=== PATIENT | male | born 1960 | race Caucasian/White ===

== ENCOUNTER 2019-12-25 10:52 | Outpatient (CLI) | payer OTHER, SELFPAY ==
--- NOTE | ~2019-12-25 | XR_ITS ---
XR_CERV2-3V_CR DATE: 12/25/2019 11:10 INDICATION: Neck pain radiating to the left shoulder. No injury. TECHNIQUE: AP, open-mouth, lateral views COMPARISON: None FINDINGS: There is straightening of the cervical spine. This may be an indication of muscle spasm. C1 and C2 are normally aligned and the odontoid process is intact. No fracture or dislocation or lock ed facet. No prevertebral soft tissue swelling. There is minimal anterolisthesis at C4-5. There is mild degenerative disease at C4-5 and C5-6. There is severe degenerative disease at C6-7. There is prominent uncovertebral joint spurring at C6-7 bilaterally. IMPRESSION: Degenerative changes, particularly at C6-7 with severe degenerative disc disease and unco vertebral joint spurring at this level Reviewed, dictated and finalized at Location A. Reviewed, dictated and finalized at location A. IMPRESSION: Degenerative changes, particularly at C6-7 with severe degenerative disc disease and uncovertebral joint spurring at this level
== END 2019-12-25 10:53 | disposition home or self-care (01) ==
PROVIDERS: PCP Internal Medicine; Visit Provider Nurse Practitioner
DX: M54.2 Cervicalgia (principal); M50.323 Other cervical disc degeneration at C6-C7 level
CPT/HCPCS: 72040

== ENCOUNTER 2022-02-16 14:38 | Outpatient (CLI) | payer OTHER, SELFPAY ==
[2022-02-16 18:38] LABS: Alanine Aminotransferase 47 U/L (6-50); Albumin Level 4.2 g/dL (3.5-5.1); Alkaline Phosphatase 192 U/L (38-126); Anion Gap 9 mmol/L (8-16); Aspartate Amino Transferase 74 U/L (17-59); Bilirubin,Total 0.6 mg/dL (0.2-1.3); Blood Urea Nitrogen 12 mg/dL (9-20); Calcium 9.4 mg/dL (8.4-10.2); Carbon Dioxide 29 mmol/L (22-30); Chloride 101 mmol/L (98-107); Cholesterol 168 mg/dL (0-200); Estimated Glomerular Filt Rate > 60; Glucose 100 mg/dL (65-110); HDL Direct 54 mg/dL; Potassium 4.8 mmol/L (3.4-5.0); Sodium 139 mmol/L (137-145); Triglycerides 131 mg/dL (<150)
[2022-02-16 18:44] LABS: Basophils Absolute Auto 0.1 K/mm3 (0.0-0.1); Basophils Percent Auto 0.8 % (0.2-1.2); Eosinophils Absolute Auto 0.2 K/mm3 (0-0.3); Eosinophils Percent Auto 2.2 % (0-4.4); Hematocrit 46.4 % (42.0-52.0); Hemoglobin 15.7 g/dL (14.0-18.0); Immature Granulocyte Absolute 0.04 K/mm3 (0.00-0.031); Immature Granulocyte Percent A 0.4 % (0-0.5); Lymphocytes Absolute Auto 4.11 K/mm3 (0.9-3.2); Lymphocytes Percent Auto 37.3 % (18.3-44.2); Mean Corpuscular HGB Conc 33.8 g/dl (32-36); Mean Corpuscular Hemoglobin 33.5 pg (26-34); Mean Corpuscular Volume 99.1 fl (80-100); Mean Platelet Volume 11.2 fl (7.4-10.4); Monocytes Absolute Auto 0.9 K/mm3 (0.1-0.6); Monocytes Percent Auto 7.7 % (2.6-8.5); Neutrophils Absolute Auto 5.7 K/mm3 (1.3-6.7); Neutrophils Percent Auto 51.6 % (45.5-73.1); Platelet Count Result 178 k/mm3 (150-375); Red Blood Count 4.68 M/mm3 (4.6-6.20)
[2022-02-16 18:49] LABS: LDL Cholesterol Direct 82 mg/dL
[2022-02-16 19:08] LABS: Prostate Specific Antigen 0.8 ng/mL (< OR = 4.0)
== END 2022-02-16 14:39 | disposition home or self-care (01) ==
LOC: ANHGOSHLAB 14:39
PROVIDERS: PCP Internal Medicine; Visit Provider Nurse Practitioner
DX: Z12.5 Encounter for screening for malignant neoplasm of prostate (principal); I10 Essential (primary) hypertension; E78.5 Hyperlipidemia, unspecified
CPT/HCPCS: 36415; 80053; 80061; 84153; 85025; G0103

== ENCOUNTER → 2023-05-08 13:19 | Outpatient (CLI) | payer OTHER, SELFPAY ==
--- NOTE | ~2023-05-08 | MR_ITS ---
EXAMINATION: MR lumbar spine wo con DATE: 05/08/2023 13:53 INDICATION: Chronic low back pain. TECHNIQUE: Magnetic resonance imaging (MRI) of the lumbar spine was performed without intravenous con trast. Sequences included sagittal T2-weighted FSE, sagittal T2-weighted FS FSE, sagittal T1-weighted FSE, and axial T2-weighted FSE. COMPARISON: Lumbar spine MRI 08/13/2018 FINDINGS: There is 14 degrees levoscoliosis of lumbar spine. There is 5 mm retrolisthesis of L2 on L3 . There is 2 mm anterolisthesis of L4 on L5. Vertebral body heights are normal. There is severely dec reased disc height at L2-L3. The distal spinal cord signal intensity is normal. The conus medullaris is at T12-L1. The following disc levels are specifically discussed: L1-L2: The disc does not extend beyond the endplate margin. There is moderate left facet joint osteoa rthritis. There is no neural foraminal stenosis. There is no central canal stenosis. L2-L3: The disc is bulging. There is severe right and moderate left facet joint osteoarthritis. There is moderate right and mild left neural foraminal stenosis. There is mild central canal stenosis. L3-L4: The disc is bulging. There is severe bilateral facet joint osteoarthritis. There is mild bilat eral neural foraminal stenosis. There is no central canal stenosis. L4-L5: The disc is bulging. There is severe bilateral facet joint osteoarthritis. There is mild bilat eral neural foraminal stenosis. There is mild central canal stenosis. L5-S1: There is a central protrusion. There is severe bilateral facet joint osteoarthritis. There is mild left neural foraminal stenosis. There is mild central canal stenosis. IMPRESSION: 1. Severe lumbar spondylosis, worsened from 08/13/2018. Reviewed, dictated and finalized at location E. GER TRANSPORTATION
== END ==
DX: M47.816 Spondylosis without myelopathy or radiculopathy, lumbar region (principal); M54.50 Low back pain, unspecified; G89.29 Other chronic pain
CPT/HCPCS: 72148

== ENCOUNTER 2024-08-22 11:37 | Outpatient (CLI) | payer MEDICARE, SELFPAY ==
--- NOTE | ~2024-08-22 | MR_ITS ---
EXAMINATION: MR lumbar spine wo con DATE: 08/22/2024 12:49 INDICATION: Lumbar radiculopathy. Low back pain. TECHNIQUE: Magnetic resonance imaging (MRI) of the lumbar spine was performed without intravenous con trast. Sequences included sagittal T2-weighted FSE, sagittal T2-weighted FS FSE, sagittal T1-weighted FSE, and axial T2-weighted FSE. COMPARISON: Lumbar spine MRI 05/08/2023 FINDINGS: There is 10 degrees levoscoliosis of lumbar spine. There is 4 mm retrolisthesis of L2 on L3 . Vertebral body heights are normal. There is severely decreased disc height at L2-L3 with endplate r emodeling. The distal spinal cord signal intensity is normal. The conus medullaris is at T12-L1. The following disc levels are specifically discussed: L1-L2: The disc does not extend beyond the endplate margin. There is mild bilateral facet joint osteo arthritis. There is no neural foraminal stenosis. There is no central canal stenosis. L2-L3: The disc is bulging. There is severe right and moderate left facet joint osteoarthritis. There is mild bilateral neural foraminal stenosis. There is mild central canal stenosis. L3-L4: The disc is bulging. There is moderate right and severe left facet joint osteoarthritis. There is mild bilateral neural foraminal stenosis. There is mild central canal stenosis. L4-L5: The disc is bulging. There is severe bilateral facet joint osteoarthritis. There is mild right and moderate left neural foraminal stenosis. There is mild central canal stenosis. L5-S1: The disc is bulging. There is severe bilateral facet joint osteoarthritis. There is mild bilat eral neural foraminal stenosis. There is mild central canal stenosis. IMPRESSION: 1. Severe lumbar spondylosis, stable from 05/08/2023. Reviewed, dictated and finalized at location A. RAM MEDICAL DIRECTOR
== END 2024-08-22 11:38 | disposition home or self-care (01) ==
PROVIDERS: PCP Internal Medicine
DX: M47.26 Other spondylosis with radiculopathy, lumbar region (principal)
CPT/HCPCS: 72148

== ENCOUNTER 2024-11-17 09:49 | Observation (INO) | payer MEDICARE, SELFPAY ==
[2024-11-17] VITALS (27 sets, daily range): BP systolic 99–122; BP diastolic 43–78; PULSE 60–74; RESP 12–31; TEMP 35.8–36.8; O2SAT 92–100; BMI 28.3
--- NOTE | ~2024-11-17 | CT_ITS ---
CTA chest PE abdomen pel Ordering provider: Collette Richards MD History: . sob, elev dimer; abd ascites . Comparison: None. Technique: CT angiogram chest was performed following timed intravenous injection of contrast. Thin s lice axial images and reformatted coronal images were obtained. Three dimensional reformatted images of the chest were also obtained using a [employer] workstation. Also, CT of the abdomen and pelvis was pe rformed with IV contrast. . Automated exposure control and iterative reconstruction technique were e mployed. The dose-length product was 1244.32 mGy-cm. 100 mL Omnipaque 350 was given IV. FINDINGS: CHEST: --PULMONARY ARTERIES: No pulmonary embolus. --VISUALIZED THORACIC INLET: Normal. --MEDIASTINUM: Aorta/coronary arteries: Mild atheromatous disease. Heart/other: The heart is not enlarged. Lymph nodes: No mediastinal or hilar adenopathy. Prevascular and paratracheal lymph node is seen jo ann uring 1.2 cm. --LUNGS: Dependent atelectatic changes with subsegmental atelectatic changes in the left side. No pulmonary no dules or masses. No infiltrates or effusions. No pneumothorax. Emphysematous changes in the upper lob es. --MUSCULOSKELETAL: Bones: Age appropriate degenerative changes of the spine. Superficial soft tissues: The superficial soft tissues are normal. ABDOMEN/PELVIS: --MUSCULOSKELETAL: Superficial soft tissues: Bilateral inguinal fat containing hernia. The superficial soft tissues are normal. Bones: Age appropriate degenerative changes of the spine. --UPPER ABDOMINAL ORGANS: Liver: Fat infiltration with liver cirrhosis. Gallbladder: Cholelithiasis. Sludge. Spleen: Benign calcifications. Hypodensities seen medially in the spleen which may be perfusional def ects. Stomach/duodenum: Normal. Pancreas: Normal. Adrenals: Normal. Kidneys: Normal. --PELVIC ORGANS: The bladder shows thickened wall. Evaluation for cystitis advised. No bladder stones . --BOWEL AND MESENTERY: Colon: Slightly thickened wall of the sigmoid colon. Colitis is possible. Clinical correlation and fo llow-up advised.. Normal appendix. Small Bowel: Normal. No obstruction. Peritoneum/mesentery: No free air. Massive ascites is noted. No mesenteric lymphadenopathy. Small mes enteric lymph nodes. --RETROPERITONEUM: Extensive atheromatous disease of the abdominal aorta with highly suggestive of o cclusion of the iliac arteries. Highly suggestive left graft is noted severe atherosclerotic changes of the celiac artery. Superior mesenteric atherosclerotic changes seen distally with moderate narrowi ng. No retroperitoneal lymphadenopathy. IMPRESSION: CHEST: 1. No pulmonary embolism. 2. Mediastinal lymphadenopathy. ABDOMEN/PELVIS: 1. Fat infiltration of liver cirrhosis. 2. Cholelithiasis. 3. Ascites 4. Thickened wall of the sigmoid colon. Colitis is possible. Clinical correlation and follow-up advi sed. 5. Bilateral fat containing inguinal hernias. 6. Atherosclerotic changes of the celiac and superior mesenteric arteries with mild to moderate narr owing. 7. Graft is seen in the area of the left iliac artery. Reviewed, dictated and finalized at location A. IMPRESSION: CHEST: 1. No pulmonary embolism. 2. Mediastinal lymphadenopathy. ABDOMEN/PELVIS: 1. Fat infiltration of liver cirrhosis. 2. Cholelithiasis. 3. Ascites 4. Thickened wall of the sigmoid colon. Colitis is possible. Clinical correlat ion and follow-up advised. 5. Bilateral fat containing inguinal hernias. 6. Atherosclerotic changes of the celiac and superior mesenteric arteries with mild to moderate narrowing. 7. Graft is seen in the area of the left iliac artery.
--- NOTE | ~2024-11-17 | US_ITS ---
EXAMINATION: US paracentesis abd w/image DATE: 11/17/2024 15:46 INDICATION: Ascites. TECHNIQUE: The procedure and its risks and benefits were discussed with the patient. Potential risks discussed included bleeding and infection. The skin was prepped and draped in sterile fashion. 1% lid ocaine was used for local anesthesia. Under ultrasound guidance, a 5 Fr catheter with trochar was adv anced into the ascites in the right lower quadrant. Fluid was aspirated into vacuum bottles. The cath eter was removed, and a dressing was applied. There were no immediate complications. FINDINGS: Ultrasound images demonstrate ascites and the catheter within the fluid. IMPRESSION: 1. Successful ultrasound-guided paracentesis yielding 2300 mL of clear yellow fluid. Reviewed, dictated and finalized at location A.
--- NOTE | ~2024-11-17 | US_ITS ---
EXAMINATION: US venous doppler [facility] DATE: 11/18/2024 17:37 INDICATION: Positive d-dimer with lower extremity swelling. 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 TECHNIQUE: Grayscale ultrasound images without and with compression and Doppler ultrasound images of the bilateral lower extremity veins were obtained. COMPARISON: None. FINDINGS: The visualized portions of right common femoral vein, profunda (deep) femoral vein, femoral vein and greater saphenous vein outflow are patent. The visualized portions of left common femoral vein, profunda femoral vein, femoral vein, popliteal v ein, peroneal veins, posterior tibial veins, and greater saphenous vein outflow are patent. IMPRESSION: 1. No deep venous thrombosis. Reviewed, dictated and finalized at location A.
--- OUTSIDE RECORDS SUMMARY | 2024-11-17 10:00 | XMS_ITS | Encounter Summary ---
Author Organization [facility] Healthcare Address [address] [place] [address] Care Team Providers Care Shuttle Driver Name Role Phone Zacarias Gutierrez DO Primary Care Provider [phone] Renny Page MD PhD Unavailable [phone] Encounter Details Date Type Department Care Team (Late st Contact Info) Description 05/27/2023 Telephone [facility] [address] [place] [address] Yi Porter MD [address] [facility] [address] [place], [place] [id number] Social History Tobacco Use Types Packs/Day Years Used Date Smoking Tobacco: Every Day Cigarettes 1 45 Started: 1973; Last attempted to quit: 2018 Smokeless Tobacco: Never Comments:Smoking History Pac ks/day: 20 Packs Alcohol Use Standard Drinks/Week Comments Yes 12 (1 standard drink = 0.6 oz pu re alcohol) AUDIT-C Answer Date Recorded Q1: How often do you have a drink containing alcohol? 4 or more times a week 05/27/2023 Q2: How many drinks containi ng alcohol do you have on a typical day when you are drinking? 3 or 4 3 Frequency of Binge Drinking Not on file 05/02 Hunger Vital Sign Answer Date Recorded Within the past 12 months, y ou worried that your food would run out before you got the money to buy more. Never true 09/13/19 23 Within the past 12 months, t he food you bought just didn't last and you didn't have money to get more. Never true 09/12/2022 Sex and Gender Information Value Date Recorded Sex Assigned at Not on file Legal Sex Male 2:20 AM PODIATRY ASSISTANT Gender Identity Male 07/11/2021 8:22 AM PODIATRY ASSISTANT Sexual Orientation Straight 07/11/2021 8: 22 AM PODIATRY ASSISTANT documented as of this encounter Functional Status documented as of this encounter Plan of Treatment Not on file documented as of this encounter Goals Goal Patient Goal Type Associated Problems Recent Progress Patient-Stated? Author CCM Chronic Pain Care Plan Chronic Care Management No change(09/30 12:01 PM CDT) No Rea Huitron RN Note: Problem: Chronic Pain Goals: 1. Minimize further functional decline 2. Maximize quality of life 3. Control pain Strategies: - Activity/exercise program recommendation - Conservative stepwise pain medicine strategy with multi-disciplinary approach - Recommend healthy lifestyle strategies and compensatory methods as needed documented as of this encounter Visit Diagnoses Not on filedocumented in this encounter Care Teams Shuttle Driver Relationship Specialty Start Date End Date Zacarias Gutierrez DO PCP - General 12/05/11 Renny Page MD PhD Surgeon Vascular Surgery 12/18/18 documented as of this encounter
--- OUTSIDE RECORDS SUMMARY | 2024-11-17 10:00 | XMS_ITS | Continuity of Care Document ---
Author Organization [facility] Address [address] [place] [address] Phone Care Team Providers Care Exceptional Children Teacher Name Role Phone Dutta OD, Shade Unavailable Unavailable Advance Directives Directive Yes / No Effective Date File Name No Information Encounters Encounter Description Practice Location Reason(s) For Visit Diagnoses Date Provider Providers Copied on Encounter [facility], [address], [place], [place], [id number], [place] tel:[phone] [facility] No Information 2-200 6 Dutta OD Sh[place]. [address] , [address], [place], [address], [place]. tel:[phone] Family History Family Member Type Diagnosis Age At Onset No Information Payers Payer name Insurance type Covered constitution party ID Authoriza tion(s) [employer] SOI CI [id number] Social History Type Description Quantity Date Captured Comments Sex Male Smoking Status No Information Chief Complaint And Reason For Visit No Information Reason For Referral Reason For Referral No Information History Of Present Illness Encounter Date Complaint History Of Prese nt Illness No Information Functional Status Date Functional Assessmen t No Information Instructions Date Instruction Additional Infor mation No Information Assessments Type Assessment Date No Information Patient Care Teams Name Effective Dates (start - stop) Status Members No Information
--- OUTSIDE RECORDS SUMMARY | 2024-11-17 10:00 | XMS_ITS | CONTINUITY OF CARE DOCUMENT ---
Author Name angela miller Address Unknown Organization [facility] Address [id number] [place] [address] [address] [place] [address] Phone [phone] Care Team Providers Care Psychologist Military Personnel Name Role Phone angela miller Unavailable Unavailable INSURANCE PROVIDERS Payer name Policy type / Coverage type [place] red green party ID [facility] [id number]
--- OUTSIDE RECORDS SUMMARY | 2024-11-17 10:01 | XMS_ITS | Clinical Summary ---
Author Organization [facility] Address [address] [place] [address] Care Team Providers Care Guard Lieutenant Name Role Phone Zacarias Gutierrez DO Primary Care Provider [phone] Source Comments [facility],non-owned Affiliates and Associated Physician Practices is amultiple site organization consisting of ambulatory clinics and hospital sitesin [place], [place], [place] and [place]. This disclosure is being madepursuant to the Care Everywhere program and may not contain all information available regarding this patient. Last updated 18.[facility] Allergies No known active allergies Medications * Be aware that medications may not be up to date on this document. Alwaysverify current medications with the patient. pantoprazole EC (PROTONIX) 40 MG tablet 4 03/06/2017 Active Multiple Vitamin (DAILY VITES) TABS Take 1 tablet by mouth DAILY. 30 tablet 5 03/14/2017 Active tadalafil (CIALIS) 20 MG tablet Take 20 mg by mouth. 01/30/2017 Active aspirin (ASPIRIN) 325 MG tablet Take 325 mg by mouth DAILY. 01/30/2017 Active Thiamine HCl 100 MG Take 1 tablet by mouth once daily 30 tablet 11 10/16/2017 Active folic acid (FOLVITE) 1 MG tablet Take 1 tablet by mouth once daily 30 tablet 3 10/16/2017 Active amLODIPine (NORVASC) 10 MG tablet 1 12/05/2017 Active atorvastatin (LIPITOR) 20 MG tablet 0 01/10/2018 Active BYSTOLIC 20 MG tablet 0 01/10/2018 Active Active Problems Problem Noted Date Diagnosed Date Alcohol use with alcohol-induced disorder 2016 Alcoholic hepatitis without ascites 01/31/2017 Family History Medical History Relation Name Comments Other - Hepatic/Liver Neg Hx Social History Tobacco Use Types Packs/Day Years Used Date Smoking Tobacco: Every Day Cigarettes Smokeless Tobacco: Never Alcohol Use Standard Drinks/Week Comments Yes 0 (1 standard drink = 0.6 oz pure alcohol) once per week. 2 drinks per occassion. Sex and Gender Information Value Date Recorded Sex Assigned at Not on file Legal Sex Male 5:27 PM CHIP CRUSHER OPERATOR Gender Identity Not on file Sexual Orientation Not on file Last Filed Vital Signs Vital Sign Reading Time Taken Comments Blood Pressure 152/83 07/08/2017 1:33 PM CHIP CRUSHER OPERATOR Pulse 103 07/08/2017 1:33 PM CHIP CRUSHER OPERATOR Temperature 36.8 C (98.2 F) 02/26/2017 12:04 PM CDT Respiratory Rate 18 02/26/2017 8:30 PM CDT Oxygen Saturation 100% 07/08/2017 1:33 PM CHIP CRUSHER OPERATOR Inhaled Oxygen Concentration - - Weight 76 kg (167 lb 9.6 oz) 07/08/2017 1:33 PM CHIP CRUSHER OPERATOR Height 165.1 cm (5' 5) 07/08/2017 1:33 PM CHIP CRUSHER OPERATOR Body Mass Index 27.89 07/08/2017 1:33 PM CHIP CRUSHER OPERATOR Plan of Treatment Health Maintenance Due Date Last Done Comments COLOGUARD (AGES 45-75) - COLON CA SCREENING 1958 COLON MONITORING 1958 COLONOSCOPY - COLON CA SCREENING 1958 CT COLONOGRAPHY - COLON CA SCREENING 1960 Colorectal Cancer Screening 1958 FIT - COLON CA SCREENING 1958 FLEX SIG - COLON CA SCREENING 1958 DTAP/TDAP/TD VACCINES (1 - Tdap) 1977 PNEUMOCOCCAL VACCINE 50+ (1 of 1 - PCV) 2008 ZOSTER VACCINE (1 of 2) 2008 SCREENING FOR DIABETES 02/13/2021 8, 03/14/2017, 02/26/2017, Additional history exists AAA SCREENING 2023 COVID-19 VACCINE (1 - 2023- season) 2024 DEPRESSION SCREENING 07/01/2024 INFLUENZA VACCINE (Season Ended) 2025 Respiratory Syncytial Virus (RSV) Vaccine Pt: or over 60 yrs (1 - 1-dose 75+ series) 2033 HEPATITIS C SCREENING Completed 01/27/2017 HEPATITIS B VACCINE Aged Out No longe r eligible based on patient's age to complete this topic HIB VACCINE Aged Out No longer eligi ble based on patient's age to complete this topic HPV VACCINE Aged Out No longer eligi ble based on patient's age to complete this topic MENINGOCOCCAL (Group B) VACCINE SHARED DECISION-MAKING Aged Out No longer eligible based on patient's age to complete this topic MENINGOCOCCAL GROUPS A/C/Y/W VACCINE Aged Out No longer eligible based on patient's age to complete this topic Procedures Procedure Name Priority Date/Time Associated Diagnosis Comments COMPREHENSIVE METABOLIC PANEL Routine 02/13/2018 2:44 PM CDT Alcoholic liver disease HEPATITIS C ANTIBODY Routine 01/27/2017 8:29 AM CDT from Last 3 Months or Most Recently Relevant to Health Maintenance Results * COMPREHENSIVE METABOLIC PANEL (02/13/2018 2:44 PM CDT) BUN 12 7 - 26 mg/dL 02/13/2018 3:30 PM [facility] Creatinine 0.9 0.6 - 1.2 mg/dL 02/13/2018 3:30 PM [facility] Sodium 139 136 - 145 mmol/L 02/13/2018 3:30 PM [facility] Potassium 4.1 3.5 - 4.5 mmol/L 02/13/2018 3:30 PM [facility] Chloride 104 98 - 107 mmol/L 02/13/2018 3:30 PM [facility] CO2 28 22 - 29 mmol/L 02/13/2018 3:30 PM [facility] Glucose 99 70 - 115 mg/dL 02/13/2018 3:30 PM [facility] Calcium 9.7 8.4 - 10.2 mg/dL 02/13/2018 3:30 PM [facility] Protein Total 7.1 6.0 - 8.3 g/dL 02/13/2018 3:30 PM [facility] Albumin 3.7 3.4 - 5.0 g/dL 02/13/2018 3:30 PM [facility] Bilirubin Total 0.3 0.2 - 1.2 mg/dL 02/13/2018 3:30 PM [facility] Alkaline Phosphatase 136 40 - 150 Units/L 02/13/2018 3:30 PM [facility] ALT 20 0 - 55 Units/L 02/13/2018 3:30 PM [facility] AST 22 5 - 34 Units/L 02/13/2018 3:30 PM [facility] Anion Gap 11 8 - 18 02/13/2018 3:30 PM [facility] BUN/Creatinine Ratio 13 7 - 23 02/13/2018 3:30 PM [facility] Osmolality Calculated 288 270 - 300 mOsm/kg 02/13/2018 3:30 PM [facility] Albumin/Globulin Ratio 1.1 1.1 - 2.3 02/13/2018 3:30 PM [facility] eGFR >60 >60 mL/min/1.7 3 m2 02/13/2018 3:30 PM [facility] Blood BLOOD SPECIMEN / Unknown Lab Venipuncture / Unknown 02/13/2018 2:44 PM CDT 02/13/2018 3:05 PM CDT us Justino Bateman MD LAB - CHEMISTRY ORDERABLES Ruchi l Result [address] [phone] * HEPATITIS C ANTIBODY (01/27/2017 8:29 AM CDT) Hepatitis C Antibody Non-react [facility] Comment: Hepatitis C Antibody screen indicates no serologic evidence of past or current infection with Hepatitis C Virus. Patients with unexplained liver disease who are immunocompromised or suspected of having acute Hepatitis C infection may benefit from Nucleic Acid Test (CIERRA) for Hepatitis C Viral RNA to confirm Hepatitis C status. Blood specimen (specimen) BLOOD SPECIMEN / Unknown 01/27/2017 8:29 AM CDT 01/27/2017 8:52 AM CDT us Vicky Smith MD LAB - CHEMISTRY ORDERA BLES Final Result [facility] [address] [place] [address], [facility] [phone] from Last 3 Months or Most Recently Relevant to Health Maintenance Insurance [employer] Care Teams Guard Lieutenant Relationship Specialty Start Date End Date Zacarias Gutierrez DO PCP - General 02/19/17
--- OUTSIDE RECORDS SUMMARY | 2024-11-17 10:01 | XMS_ITS | Clinical Summary ---
Author Organization [facility] Address [address] [address] Care Team Providers Care Assistant Director Of Residence Life Name Role Phone Zacarias Gutierrez DO Primary Care Provider [phone] Renny Page MD PhD Unavailable [phone] Allergies Active Allergy Reactions Criticality Noted Date Comments No Known Allergies Other (See comments) Low Reaction: Medications amLODIPine (NORVASC) 10 mg tabletIndicatio ns:hypertension Take 1 tablet (10 mg total) by mouth every morning 9 Active atorvastatin (LIPITOR) 20 mg tabletIndicatio ns:hyperlipidem ia Take 1 tablet (20 mg total) by mouth every morning 9 Active multivitamin tabletIndicatio ns:Vitamin Deficiency Prevention Take 1 tablet by mouth every morning 7 Active BYSTOLIC 20 mg tabletIndicatio ns:hypertension Take 1 tablet (20 mg total) by mouth every morning 9 Active CIALIS 20 mg tabletIndicatio ns:Erectile Dysfunction Take 1 tablet (20 mg total) by mouth daily as needed 9 Active omega-3 fatty acids-fish oil 300-1,000 mg capsuleIndicati ons:supplement Take 2 capsules (2 g total) by mouth every morning Active aspirin 325 mg tablet Take 1 tablet (325 mg total) by mouth daily Active albuterol HFA (PROVENTIL HFA,VENTOLIN HFA,PROAIR HFA) 90 mcg/actuation inhaler INHALE 1 PUFF BY MOUTH EVERY 4 HOURS NEEDED FOR SHORTNESS OF BREATH OR WHEEZING [address] (NexIUM) 20 mg capsule Take by mouth daily 2 Active baclofen (LIORESAL) 5 mg tablet Take 1 tablet (5 mg total) by mouth 3 (three) times a day 90 tablet 1 5 11/26/19 25 Active lidocaine (LIDODERM) 5 % Place 1 patch on the skin daily for 12 hours Remove & discard patch within 12 hours or as directed by . 30 patch 3 5 Active lidocaine (LIDODERM) 5 % Place 1 patch on the skin daily Remove & discard patch within 12 hours or as directed by . 30 patch 3 5 10/23/19 25 Discontinu ed(Reorder ) Active Problems Problem Noted Date Diagnosed Date Spondylosis of lumbar region without myelopathy or radiculopathy 01/15/2022 Peripheral neuropathy 01/15/2022 Phantom limb syndrome with pain 01/02/2022 Chronic low back pain 01/02/2022 Carotid stenosis, right 10/15/2018 Impaired functional mobility, balance, gait, and endurance Status post above-knee amputation of right lower extremity Encounters Date Type Department Care Team Description 11/03/2024 2:48 PM CDT - 11/03/2024 11:59 PM CDT Hospital Encounter [facility] [address] [place] [address] Discharge Disposition: Discharge to home or self care 10/23/2024 Telephone [facility] [place] [facility] [address] [place] [address] [facility] [address] [place] [address] Yi Porter MD Lidocaine patch PA approved 07/01/24-06/30/25 10/22/2024 11:45 AM CDT - 10/22/2024 11:59 PM CDT Hospital Encounter [facility] [place] [facility] [address] [place] [address] [facility] [address] [place] [address] Yi Porter MD Chronic low back pain without sciatica, unspecified back pain laterality (Primary Dx); Spondylosis of lumbar region without myelopathy or radiculopathy Discharge Disposition: Discharge to home or self care from Last 3 Months Surgical History Surgery Date Site/Laterality Comments ABOVE KNEE LEG AMPUTATION AORTA - FEMORAL ARTERY BYPASS GRAFT 07/01/2009 - 010 CAROTID ENDARTERECTOMY Right APPENDECTOMY Medical History Medical History Date Comments Cardiovascular disease Coronary Artery Disease Hx Other Medical Carotid Disease Hx Other Medical Peripheral Vasc ular Disease (s/p L aorto-fem bypas Hypertension Hypertension Male erectile disorder (CODE) Er ectile dysfunction of non-organic origin - (Added by TW Conv) Personal history of other di seases of the circulatory system History of hypertension - (A dded by TW Conv) Personal history of other di seases of the digestive system History of esophageal reflux - (Added by TW Conv) Personal history of other di seases of the circulatory system History of peripheral vascul ar disease - (Added by TW Conv) GERD (gastroesophageal reflux disease) Depression History of transfusion Family History Medical History Relation Name Comments Anxiety disorder Mother Depression Mother Heart disease Mother Hypertension Mother Stent Mother Coronary Stent Placement; Relation Name Status Comments Mother Alive Social History Tobacco Use Types Packs/Day Years Used Date Smoking Tobacco: Every Day Cigarettes 1 45 Started: 1973; Last attempted to quit: 2018 Smokeless Tobacco: Never Tobacco Cessation:Ready to Q uit: No; Counseling Given: Yes Comments:Smoking History Packs/day: 20 Packs Alcohol Use Standard Drinks/Week Comments Yes 12 (1 standard drink = 0.6 oz pu re alcohol) AUDIT-C Answer Date Recorded Q1: How often do you have a drink containing alcohol? 4 or more times a week 10/22/2024 Q2: How many drinks containi ng alcohol do you have on a typical day when you are drinking? 3 or 4 Q3: How often do you have si x or more drinks on one occasion? Never 10/22/2024 Hunger Vital Sign Answer Date Recorded Within [...] on file Legal Sex Male 2:20 AM CONSULTING PROJECT DIRECTOR Gender Identity Male 07/11/2021 8:22 AM CONSULTING PROJECT DIRECTOR Sexual Orientation Straight 07/11/2021 8: 22 AM CONSULTING PROJECT DIRECTOR Obstetrics History Last Filed Vital Signs Vital Sign Reading Time Taken Comments Blood Pressure 115/70 10/22/2024 11:55 AM CDT Pulse 77 10/22/2024 11:55 AM CDT Temperature 36.4 C (97.5 F) 10/22/2024 11:55 AM CDT Respiratory Rate 10 10/22/2024 11:55 AM CDT Oxygen Saturation 97% 10/22/2024 11:55 AM CDT Inhaled Oxygen Concentration - - Weight 72.3 kg (159 lb 8 oz) 10/22/2024 11:55 AM CDT Height 165.1 cm (5' 5) 10/22/2024 11:55 AM CDT Body Mass Index 26.54 10/22/2024 11:55 AM CDT Plan of Treatment Health Maintenance Due Date Last Done Comments Depression Screening 1958 Fall Risk Assessment 1960 Hepatitis C Screening 1958 Prostate Cancer Screening-PSA 1958 DTaP/Tdap/Td Vaccine (1 - Tdap) 1969 Hepatitis B Screening 1976 Pneumococcal vaccine 65+ (1 of 2 - PCV) 1977 Lung Cancer Screening 2008 Zoster Vaccine (1 of 2) 2008 Abdominal Aortic Aneurysm (AAA) Screen 2023 Well Visit 65+ 2023 Covid-19 Vaccine (2 - season) 03/01/202410/2020 Influenza Vaccine (Season Ended) 2025 04/16/20 19 Colon Cancer Screening-Colonoscopy 09/19/20272017 Colon Cancer Screening-CT Colonography Discontinued Colon Cancer Screening-DNA Stool Discontinued 09/19/19 Colon Cancer Screening-FIT Discontinued 09/18/2017 Colon Cancer Screening-Sigmoidoscopy Discontinued 08/30 Goals Goal Patient Goal Type Associated Problems [...] lifestyle strategies and compensatory methods as needed Medical Devices Implanted Type Area Coordinator Skill Training Program Device Identifier Shelf Expiration Date Model / Serial / Lot Neronote [id number] Vascu-Guard 8x.8cm Peripheral Patch Vascular Bovine Pericardium - [id number] - [id number] Implanted:Qty: 1 on 12/17/2018 by Renny Page MD PhD at [facility] Graft Right: Neck [employer] 07/23/2023 VG-[id number] / [id number] / [id number] [employer] System Sprint Percutaneous Electrical Nerve Stimulation [id number] - [id number] Implanted:Qty: 1 on 07/10/2022 by Yi Porter MD at [facility] Stimulator Bilatera l: Back [employer] 05/01/2023 [id number] / / [id number] 22 Procedures Procedure Name Priority Date/Time Associated Diagnosis Comments NEURO CT OUTSIDE REFERENCE Routine 11/03/2024 2:48 PM CDT Diagnosis unknown CTA ABDOMEN PELVIS W WO CONTRAST Schedule Routine, Read Routine (OP Routine) 10/15/2018 10:09 AM CDT Carotid stenosis, right COLONOSCOPY REPORT 09/18/2017 from Last 3 Months or Most Recently Relevant to Health Maintenance Results * Neuro CT Outside Reference (11/03/2024 2:48 PM CDT) Impressions [facility] - 11/03/2024 2:48 PM CDT These images are for Reference purposes only and have not been reviewed by [facility]. There will be no report generated by a [facility]iologist. Narrative RAD_PACS_[facility] - 11/03/2024 2:48 PM CDT EXAMINATION: Images For Reference Purposes Only us Yi Porter MD IMG CT PROCEDURES Final Result [facility] * CTA Abdomen Pelvis W WO Contrast (10/15/2018 10:09 AM CDT) Anatomical Region Laterality Modality Body N/A Computed Tomogra phy 10/15/2018 11:1 7 AM CDT Impressions 10/15/2018 11:17 AM CDT 1. No significant arterial stenosis or aneurysmal dilatation in the abdomen or pelvis. 2. Patent eknjy-cabl-tvtaytu bypass. 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 3. Morphologic liver changes suggesting underlying chronic liver disease. Electronically signed by: Justice Mays M.D. Narrative 10/15/2018 11:17 AM CDT EXAMINATION: CT ANGIOGRAPHY OF THE ABDOMEN AND PELVIS WITH AND WITHOUT CONTRAST HISTORY: Carotid artery stenosis, history of aortic thrombosis status post thrombectomy and endarterectomy with left aorta femoral bypass TECHNIQUE: CT angiography of the abdomen and pelvis was performed prior to and following uneventful intravenous administration of 125 ml Optiray-350 using the pre-endoluminal stent graft protocol. Vascular 3D images were generated on a dedicated workstation and also reviewed. COMPARISON: 06/09/2010 FINDINGS: Vascular findings: The abdominal aorta is nonaneurysmal and contains atherosclerotic calcification and plaque. No area of significant aortic stenosis. Postoperative change of aorta left femoral bypass. Bypass graft remains patent and without evidence of significant stenosis. The [place] left common iliac artery is occluded with reconstitution of the [place] left internal and external iliac via collateral flow. There is unchanged chronic occlusion of the right common iliac artery with reconstitution of the right common femoral artery by collaterals. There is diminutive/thready flow in the right superficial femoral artery and profunda. The left superficial femoral artery and deep femoral arteries appear widely patent along their visualized course. No evidence of significant stenosis involving the celiac trunk or SMA. No significant stenosis involving the renal arteries (2 right renal arteries). The OK is not visualized. Nonvascular findings: No change in right middle lobe with nancie-fissural intrapulmonary lymph node. Emphysematous change is noted. No new lung base finding. No arterial phase enhancing liver lesion. There is periportal widening and mild left liver hypertrophy, suggesting underlying chronic liver disease. A gallstone is noted. No gallbladder wall thickening. No biliary ductal dilatation. Arterial phase pancreas, spleen, and adrenal glands appear normal. No solid renal lesion. No urolithiasis or hydronephrosis. Mild circumferential urinary bladder wall thickening. The prostate is enlarged. Sigmoid diverticulosis without evidence of diverticulitis. No abnormal bowel distention or adjacent inflammation. No ascites or free pelvic fluid. Small bilateral inguinal fat-containing hernias. No enlarged retroperitoneal, mesenteric, or pelvic/inguinal lymph nodes. No suspicious bone lesion. Multilevel degenerative change of the lumbar spine. Postoperative change of right above-knee amputation, partially imaged. Procedure Note Justice Mays MD - 10/15/2018 EXAMINATION: CT ANGIOGRAPHY OF THE ABDOMEN AND PELVIS WITH AND WITHOUT CONTRAST HISTORY: Carotid artery stenosis, history of aortic thrombosis status post thrombectomy and endarterectomy with left aorta femoral bypass TECHNIQUE: CT angiography of the abdomen and pelvis was performed prior to and following uneventful intravenous administration of 125 ml Optiray-350 using the pre-endoluminal stent graft protocol. Vascular 3D images were generated on a dedicated workstation and also reviewed. COMPARISON: 06/09/2010 FINDINGS: Vascular findings: The abdominal aorta is nonaneurysmal and contains atherosclerotic calcification and plaque. No area of significant aortic stenosis. Postoperative change of aorta left femoral bypass. Bypass graft remains patent and without evidence of significant stenosis. The [place] left common iliac artery is occluded with reconstitution of the [place] left internal and external iliac via collateral flow. There is unchanged chronic occlusion of the right common iliac artery with reconstitution of the right common femoral artery by collaterals. There is diminutive/thready flow in the right superficial femoral artery and profunda. The left superficial femoral artery and deep femoral arteries appear widely patent along their visualized course. No evidence of significant stenosis involving the celiac trunk or SMA. No significant stenosis involving the renal arteries (2 right renal arteries). The OK is not visualized. Nonvascular findings: No change in right middle lobe with nancie-fissural intrapulmonary lymph node. Emphysematous change is noted. No new lung base finding. No arterial phase enhancing liver lesion. There is periportal widening and mild left liver hypertrophy, suggesting underlying chronic liver disease. A gallstone is noted. No gallbladder wall thickening. No biliary ductal dilatation. Arterial phase pancreas, spleen, and adrenal glands appear normal. No solid renal lesion. No urolithiasis or hydronephrosis. Mild circumferential urinary bladder wall thickening. The prostate is enlarged. Sigmoid diverticulosis without evidence of diverticulitis. No abnormal bowel distention or adjacent inflammation. No ascites or free pelvic fluid. Small bilateral inguinal fat-containing hernias. No enlarged retroperitoneal, mesenteric, or pelvic/inguinal lymph nodes. No suspicious bone lesion. Multilevel degenerative change of the lumbar spine. Postoperative change of right above-knee amputation, partially imaged. IMPRESSION: 1. No significant arterial stenosis or aneurysmal dilatation in the abdomen or pelvis. 2. Patent gmpoq-mrco-ixzjndy bypass. 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 3. Morphologic liver changes suggesting underlying chronic liver disease. Electronically signed by: Justice Mays M.D. Renny Page MD PhD IMG CT PROCEDURES Ruchi l Result * COLONOSCOPY REPORT (09/18/2017) Anatomical Region Laterality Modality Other Provider Scanning GI PROCEDURE ORDERABLES Final Result from Last 3 Months or Most Recently Relevant to Health Maintenance Insurance MEDICARE [facility] Address: [address] [place] [address] [facility] [id number] [facility] MEDICARE [facility] MEDICARE [facility] Address: [address] [address] [place] [address] [facility] MEDICARE Advance Directives For more information, please contact: [phone] Documents on File Type Date Recorded Patient Housing Inspectors Expl anation ADVANCE DIRECTIVE 12/22/2018 1:17 PM ED MCCONNELL * Full Code (Latest Code Status on File) Date Activated Date Inactivated Comments 12/17/2018 7:16 PM 12/18/2018 4:46 PM Care Teams Assistant Director Of Residence Life Relationship Specialty Start Date End Date Zacarias Gutierrez DO PCP - General 12/05/11 Renny Page MD PhD Surgeon Vascular Surgery 12/18/18
--- OUTSIDE RECORDS SUMMARY | 2024-11-17 10:01 | XMS_ITS | Referral Summary ---
Author Organization [facility] Address [address] [place] [address] Care Team Providers Care Senior Accounts Payable Specialist Name Role Phone Zacarias Gutierrez DO Primary Care Provider [phone]- [phone] Renny Page MD PhD Unavailable [phone] Encounters Date Type Department Care Team Description 11/03/2024 2:48 PM CDT - 11/03/2024 11:59 PM CDT Hospital Encounter [facility] [address] [place] [address] Discharge Disposition: Discharge to home or self care 10/23/2024 Telephone [facility] [place] [facility] [address] [place] [address] for [facility] [address] [place] [address] Yi Porter MD Lidocaine patch PA approved 07/01/24-06/30/25 10/22/2024 11:45 AM CDT - 10/22/2024 11:59 PM CDT Hospital Encounter [facility] [place] [facility] [address] [place] [address] for [facility] [address] [place] [address] Yi Porter MD Chronic low back pain without sciatica, unspecified back pain laterality (Primary Dx); Spondylosis of lumbar region without myelopathy or radiculopathy Discharge Disposition: Discharge to home or self care from Last 3 Months Allergies Active Allergy Reactions Criticality Noted Date [...] within 12 hours or as directed by 30 patch 3 5 Active lidocaine (LIDODERM) 5 % Place 1 patch on the skin daily Remove & discard patch within 12 hours or as directed by MD. Roth patch 3 5 10/23/19 25 Discontinu ed(Reorder ) Active Problems Problem Noted Date Diagnosed Date Spondylosis of lumbar region without myelopathy or radiculopathy 01/15/2022 Peripheral neuropathy 01/15/2022 Phantom limb syndrome with pain 01/02/2022 Chronic low back pain 01/02/2022 Carotid stenosis, right 10/15/2018 Impaired functional mobility, balance, gait, and endurance Status post above-knee amputation of right lower extremity Social History Tobacco Use Types Packs/Day Years [...] on file Legal Sex Male 2:20 AM ASW/ASUW TACTICAL AIR CONTROLLER Gender Identity Male 07/11/2021 8:22 AM ASW/ASUW TACTICAL AIR CONTROLLER Sexual Orientation Straight 07/11/2021 8: 22 AM ASW/ASUW TACTICAL AIR CONTROLLER Last Filed Vital Signs Vital Sign Reading [...] 10/22/2024 11:55 AM CDT Plan of Treatment Not on file Goals Goal Patient Goal Type Associated Problems [...] as needed Medical Devices Implanted Type Area Clinical Documentation Clerk Device Identifier Shelf Expiration Date Model / Serial / Lot [employer] Vg-[id number] Vascu-Guard 8x.8cm Peripheral Patch Vascular Bovine Pericardium - [id number] - [id number] Implanted:Qty: 1 on 12/17/2018 by Renny Page MD PhD at [facility] Graft Right: Neck [employer] 07/23/2023 VG-0108N / [id number] / [id number] [employer] System Sprint Percutaneous Electrical Nerve Stimulation 9913-9090 - [id number] Implanted:Qty: 1 on 07/10/2022 by Yi Porter MD at [facility] Stimulator Bilatera l: Back [employer] 05/01/2023 [id number] / / [id number] 22 Procedures Procedure Name Priority Date/Time Associated [...] Outside Reference (11/03/2024 2:48 PM CDT) Impressions [facility] - 11/03/2024 2:48 PM CDT These images are for Reference purposes only and have not been reviewed by [facility]. There will be no report generated by a [facility] Radiologist. Narrative [facility] - 11/03/2024 2:48 PM CDT EXAMINATION: Images [...] in the abdomen or pelvis. 2. Patent ismfv-vdtw-ggqalxv bypass. 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 The [place] left common iliac artery is occluded with reconstitution of the [place] left internal and external iliac via collateral [...] and without evidence of significant stenosis. The [place] left common iliac artery is occluded with reconstitution of the [place] left internal and external iliac via collateral [...] in the abdomen or pelvis. 2. Patent ogfhz-rfnx-zrahvbg bypass. 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 at the origin of the [place] internal/external iliac arteries on the left and [...] Recently Relevant to Health Maintenance Insurance [facility] [id number] [facility] MEDICARE [facility] MEDICARE T MEDICARE Advance Directives For more information, please contact: [phone] Documents on File Type Date Recorded Patient It Infrastructure Consultant Expl anation ADVANCE DIRECTIVE 12/22/2018 1:17 PM ED MCCONNELL * Full Code (Latest Code Status on File) Date Activated Date Inactivated Comments 12/17/2018 7:16 PM 12/18/2018 4:46 PM Care Teams Senior Accounts Payable Specialist Relationship Specialty Start Date End Date Zacarias Gutierrez DO PCP - General 12/05/11 Renny Page MD PhD Surgeon Vascular Surgery 12/18/18
--- NOTE | 2024-11-17 10:54 | ED.ABDPAIN ---
HPI - Abdominal Pain General Chief Complaint: Abdominal Pain Stated Complaint: abdominal bloating Time Seen by Provider: 11/17/24 10:45 Source: patient, family and other (Dr Gutierrez had called pre-arrival report to [facility]) Mode of arrival: ambulatory Limitations: no limitations History of Present Illness HPI narrative: Patient presents upon recommendation of his primary care physician that he do so. Patient complaining of abdominal distension and bloating. PCP had noted concern ascites and that patient is often noncompliant with following up on recommended outpatient labs/work up. He had been borderline hypotensive in the office. He denies kana abdominal pain only that the weight gain has caused the stretching that feels uncomfortable and also causes some shortness of breath. He denies any liver disease history. Patient notes that talking with the stress of his father's estate he did start drinking more heavily, having a bottle of wine and 2 shots of Southern comfort at night to help him fall asleep. When he started feeling like he was becoming symptomatic, he stopped drinking the wine. Patient does previous history of alcohol withdrawal. He states he has felt jittery before but that was after drinking and feeling like he might be dehydrated. He notes that he has been able to stop drinking for at times 6 months before resuming. He denies any fevers or chills. His last oral intake was this morning. He had a cereal breakfast this will waiting in the waiting room. His last bowel movement was this morning he denies any diarrhea constipation or blood. Denies any early satiety but decreased appetite for the past 3 months. Feels gassy. No nausea or vomiting. Denies any bowel changes. Estimates that he has a 10 lb weight gain primarily over the past 2 weeks. He has had decreased urine output. He also notes that it is been orange although had been attributed to the vitamin he takes. He denies any underlying respiratory conditions however he does smoke pack per day. He has had a cough that he states breaks up when he lays on his side. History of MRSA complication after AAA surgery. Also history of right ykbgb-qmp-vmyh amputation. Related Data Home Medications ?Medication ?Instructions ?Recorded ?Confirmed ?Last Taken ?Type aspirin 325 mg tablet 325 mg PO DAILY 10/07/19 11/17/24 11/17/24 History multivitamin 1 tablet PO DAILY 10/07/19 11/17/24 11/17/24 History omega-3 fatty acids 1,000 mg 1,000 mg PO DAILY 10/07/19 11/17/24 11/17/24 History capsule (Fish Oil Concentrate) Allergies Allergy/AdvReac Type Severity Reaction Status Date / Time No Known Allergies Allergy Verified 11/17/24 08:29 [facility] Past Medical History Medical History (Updated 11/18/24 @ 11:57 by Collette Richards MD) Above knee amputation of right lower extremity Left carotid artery stenosis Chronic pain PAD (peripheral artery disease) Leukocytosis HTN (hypertension) PVD (peripheral vascular disease) AAA (abdominal aortic aneurysm) Osteoarthritis MRSA (methicillin resistant Staphylococcus aureus) Degenerative arthritis of left knee Hypogonadism History of colon polyps GERD (gastroesophageal reflux disease) HLD (hyperlipidemia) Dystonia of right hand CTS (carpal tunnel syndrome) Bursitis Situational anxiety Surgical History Surgical History H/O colonoscopy with polypectomy 2018 S/P arthroscopic surgery of left knee 2013 History of carpal tunnel release right wrist H/O rorre-zpiyk-hwcuofo bypass 05/24/2010 Carotid artery disorder surgery 2019, Right Family History Family History Mother Family history of cardiovascular disease Heart disease Social History Social History (Updated 11/18/24 @ 11:59 by Collette Richards MD) Smoking packs per day: 1 Smoking cigarettes per day: 20.0 Smoking status: Current every day smoker Tobacco type: cigarettes Alcohol intake: current Substance use: current Substance use type: marijuana Other substance usage details: 2 shots of whisky Do You Feel Safe in your Home?: Yes Lack of Transportation: No Lack of Food: Never True Current Housing: I Have Housing Concerned About Future Housing: No Difficulty Paying Gas/Electric Bills: No Difficulty Paying for Meds: No Currently Unemployed: No Education: High School Diploma/GED Difficulty w/ Childcare or Family Care: No Living arrangements: with family Spiritual care concerns: No Exam Narrative: GENERAL: well-nourished, and in no acute distress. HEAD: Normocephalic, atraumatic. EYES: Non injected, mildly icteric ENT: Nares clear, no rhinorrhea or epistaxis. NECK: Supple. CHEST: Speaking in full sentences. No respiratory distress. Coarse rhonchorous bilateral breath sounds, slightly diminished. HEART: Regular rate and rhythm. . ABDOMEN: Soft, distended. Ascites with Fluid shift. No caput medusa. Well healed LLQ scar. EXTREMITIES: Normal range of motion. Right AKA. SKIN: Warm, dry, no rash. NEURO: No focal deficits. Alert and oriented x3. PSYCH: Normal mood and affect. Course Vital Signs Vital signs: Vital Signs Temperature 97.6 F 11/17/24 09:57 Pulse Rate 60 11/17/24 09:57 Respiratory Rate 16 11/17/24 09:57 Blood Pressure 99/43 L 11/17/24 09:57 Pulse Oximetry 95 11/17/24 09:57 Oxygen Delivery Room Air 11/17/24 09:57 Temperature 97.3 F L 11/18/24 05:49 Pulse Rate 70 11/18/24 05:49 Respiratory Rate 18 11/18/24 05:49 Blood Pressure 100/52 L 11/18/24 05:49 Pulse Oximetry 95 11/18/24 05:49 Oxygen Delivery Room Air 11/18/24 09:32 MDM - Abdominal Pain MDM Narrative Medical decision making narrative: Patient presents to the emergency department directed by his primary care physician. Patient has abdominal distension new onset ascites weight gain borderline hypotensive in the office. Patient has notably always been compliant following up on outpatient labs or workup after routine visits. Had recently had heavier alcohol consumption. In the emergency department he is afebrile vital signs notable for hypotension. Mean arterial pressure is 61 mm Hg. Small 500 cc fluid bolus initially. Very mild anemia although does have a leukocytosis greater than 16. Patient has hyponatremia. Patient has not had lab testing awhile so unknown acuity although it does represent a drop of 12 involved past 3 years. For this reason, urine electrolytes ordered. Pseudo hypocalcemia as it corrects to normal in the setting of hypoalbuminemia. Hyperbilirubminemia but direct and indirect essentially normal. Elevated alk phos and AST. He has coarse bilateral breath sounds with wheezes. Albuterol ordered. Ammonia and INR normal. BNP only mildly elevated, not to a degree to suggest acute heart failure based on the reference range of the assay for patient's age. Troponin and viral swab negative. Discussed recommendation for admission with the patient who is in agreement. Discussed the role of a diagnostic and therapeutic paracentesis and placed orders for radiology to perform this procedure. Patient had initially denied any previous history of liver disease he does now state that he had previously been told he had alcoholic hepatitis but that it resolved. Discussed patient with on-call hospitalist MARIA LUISA Weber who accepts admission pending agreement that GI is willing to consult. Discussed with Dr Escobedo who concurs with getting paracentesis and accepts consult. I had discussed patient's recently heavy alcohol consumption with Tai. Patient downplaying current consumption or issues with withdrawal but team to be aware in case it becomes an issue during hosptialization. Differential Diagnosis Differential diagnosis: Likely abdominal pain, constipation and other (Ascites secondary to cirrhosis, acute liver failure, Budd-Chiari syndrome, acute heart failure, portal vein thrombosis, portal hypertension; SBP) Lab Data Attestation: I reviewed the patient's lab results. 11/18/24 04:52 11/18/24 04:52 Labs: Lab Results 11/17/24 11/17/24 11/17/24 Range/Units 10:56 10:57 11:14 WBC 16.6 H (4.5-10.0) K/mm3 RBC 3.85 L (4.6-6.20) M/mm3 Hgb 13.9 L (14.0-18.0) g/dL Hct 41.1 L (42.0-52.0) % MCV 106.8 H (80-100) fl MCH 36.1 H (26-34) pg MCHC 33.8 (32-36) g/dl RDW 13.7 (11.5-14.5) % Plt Count 223 (150-375) k/mm3 MPV 10.8 H (7.4-10.4) fl Immature Gran % (Auto) 0.7 H (0-0.5) % Neut % (Auto) 73.0 (45.5-73.1) % Lymph % (Auto) 18.8 (18.3-44.2) % [place] % (Auto) 6.7 (2.6-8.5) % Eos % (Auto) 0.3 (0-4.4) % Baso % (Auto) 0.5 (0.2-1.2) % Lymph # (Auto) 3.11 (0.9-3.2) K/mm3 [place] # (Auto) 1.1 H (0.1-0.6) K/mm3 Eos # (Auto) 0.1 (0-0.3) K/mm3 Baso # (Auto) 0.1 (0.0-0.1) K/mm3 Abs Immat Gran (auto) 0.12 H (0.00-0.031) K/mm3 Absolute Neuts (auto) 12.1 H (1.3-6.7) K/mm3 Absolute Nucleated RBC 0.000 (0.0-0.012) K/mm3 Band Neutrophils % Not Reportable Nucleated RBC % 0.0 (0.0-0.2) % Platelet Estimate Adequate (Adequate) Anisocytosis 1+ Schistocytes None seen PT 16.2 H (11.1-14.7) Seconds INR 1.2 APTT 31.5 (22.3-36.8) Seconds D-Dimer 3.76 H (<0.48) ug/mL Sodium 127 L (137-145) mmol/L Potassium 3.7 (3.4-5.0) mmol/L Chloride 93 L (98-107) mmol/L Carbon Dioxide 25 (22-30) mmol/L Anion Gap 9 (4-12) mmol/L BUN 16 (9-20) mg/dL Creatinine 0.70 (0.7-1.3) mg/dL Estim Creat Clear Calc 78 ml/min Estimated GFR > 60 (59 - ) Glucose 135 H (65-110) mg/dL Calcium 8.1 L (8.4-10.2) mg/dL Total Bilirubin 4.1 H (0.2-1.3) mg/dL Direct Bilirubin 0.8 H (0-0.3) mg/dL Indirect Bilirubin 1.0 (0-1.1) mg/dL AST 112 H (17-59) U/L ALT 45 (6-50) U/L Alkaline Phosphatase 348 H (38-126) U/L Ammonia 23 (9-30) umol/L Lactate Dehydrogenase 298 H (120-246) U/L Troponin I < 0.012 (0.000-0.034) ng/mL NT-Pro-B Natriuret Pep 438 H (19.9-100) pg/mL Total Protein 6.0 L (6.3-8.2) g/dL Albumin 3.0 L (3.5-5.1) g/dL Lipase 247 (23-300) U/L Urine Color (Yellow) Urine Appearance (Clear) Urine pH (5.0-9.0) Ur Specific [place] (1.001-1.035) Urine Protein (Negative) mg/dL Urine Glucose (UA) (Negative) mg/dL Urine Ketones (Negative) mg/dL Ur Blood (Man) (Negative) Urine Nitrate (Negative) Urine Bilirubin (Negative) Urine Urobilinogen (<2.0) mg/dL Add Ur Microanalysis Leukocyte Esterase Rfl (Negative) SIRISHA/UL Urine RBC (0-2) /hpf Urine WBC (0-3) /hpf Ur Squamous Epith Cells (Few) /hpf Urine Bacteria /hpf Urine Casts Urine Osmolality Ur Random Sodium meq/L Urine Creatinine mg/dL Peritoneal Source Peritoneal Color (Colorless) Peritoneal Appearance (Clear) Peritoneal RBC (0-35387) /uL Periton Nuc Cells (0-500) /uL Periton Neutrophils (0-25) % Periton Lymphocytes % Periton Mesothelial % Periton Macrophages % Peritoneal Tot Protein Peritoneal Albumin Peritoneal LDH Peritoneal Glucose Influenza A (RT-PCR) Negative (Negative) Influenza B (RT-PCR) Negative (Negative) RSV (RT-PCR) Negative (Negative) SARS-CoV-2 RNA (RT-PCR) Negative (Negative) 11/17/24 11/17/24 Range/Units 13:33 15:22 WBC (4.5-10.0) K/mm3 RBC (4.6-6.20) M/mm3 Hgb (14.0-18.0) g/dL Hct (42.0-52.0) % MCV (80-100) fl MCH (26-34) pg MCHC (32-36) g/dl RDW (11.5-14.5) % Plt Count (150-375) k/mm3 MPV (7.4-10.4) fl Immature Gran % (Auto) (0-0.5) % Neut % (Auto) (45.5-73.1) % Lymph % (Auto) (18.3-44.2) % [place] % (Auto) (2.6-8.5) % Eos % (Auto) (0-4.4) % Baso % (Auto) (0.2-1.2) % Lymph # (Auto) (0.9-3.2) K/mm3 [place] # (Auto) (0.1-0.6) K/mm3 Eos # (Auto) (0-0.3) K/mm3 Baso # (Auto) (0.0-0.1) K/mm3 Abs Immat Gran (auto) (0.00-0.031) K/mm3 Absolute Neuts (auto) (1.3-6.7) K/mm3 Absolute Nucleated RBC (0.0-0.012) K/mm3 Band Neutrophils % Nucleated RBC % (0.0-0.2) % Platelet Estimate (Adequate) Anisocytosis Schistocytes PT (11.1-14.7) Seconds INR APTT (22.3-36.8) Seconds D-Dimer (<0.48) ug/mL Sodium (137-145) mmol/L Potassium (3.4-5.0) mmol/L Chloride (98-107) mmol/L Carbon Dioxide (22-30) mmol/L Anion Gap (4-12) mmol/L BUN (9-20) mg/dL Creatinine (0.7-1.3) mg/dL Estim Creat Clear Calc ml/min Estimated GFR (59 - ) Glucose (65-110) mg/dL Calcium (8.4-10.2) mg/dL Total Bilirubin (0.2-1.3) mg/dL Direct Bilirubin (0-0.3) mg/dL Indirect Bilirubin (0-1.1) mg/dL AST (17-59) U/L ALT (6-50) U/L Alkaline Phosphatase (38-126) U/L Ammonia (9-30) umol/L Lactate Dehydrogenase (120-246) U/L Troponin I (0.000-0.034) ng/mL NT-Pro-B Natriuret Pep (19.9-100) pg/mL Total Protein (6.3-8.2) g/dL Albumin (3.5-5.1) g/dL Lipase (23-300) U/L Urine Color Dark yellow (Yellow) Urine Appearance Clear (Clear) Urine pH 6.0 (5.0-9.0) Ur Specific [place] > 1.045 H (1.001-1.035) Urine Protein Trace (Negative) mg/dL Urine Glucose (UA) Negative (Negative) mg/dL Urine Ketones Trace H (Negative) mg/dL Ur Blood (Man) Negative (Negative) Urine Nitrate Positive H (Negative) Urine Bilirubin 2+ H (Negative) Urine Urobilinogen 2.0 H (<2.0) mg/dL Add Ur Microanalysis Reviewed Leukocyte Esterase Rfl Trace H (Negative) SIRISHA/UL Urine RBC 0-2 (0-2) /hpf Urine WBC 0-5 (0-3) /hpf Ur Squamous Epith Cells None seen (Few) /hpf Urine Bacteria None seen /hpf Urine Casts 11-20 Urine Osmolality Pending Ur Random Sodium < 5 meq/L Urine Creatinine 170.6 mg/dL Peritoneal Source Peritoneal fluid Peritoneal Color Yellow (Colorless) Peritoneal Appearance Hazy A (Clear) Peritoneal RBC < 2000 (0-67981) /uL Periton Nuc Cells 179 (0-500) /uL Periton Neutrophils 12 (0-25) % Periton Lymphocytes 20 % Periton Mesothelial 5 % Periton Macrophages 63 % Peritoneal Tot Protein Pending Peritoneal Albumin Pending Peritoneal LDH Pending Peritoneal Glucose Pending Influenza A (RT-PCR) (Negative) Influenza B (RT-PCR) (Negative) RSV (RT-PCR) (Negative) SARS-CoV-2 RNA (RT-PCR) (Negative) Imaging Data Radiologist's impression: ITS Impressions Chest/Abdomen/Pelvis CTA 11/17/24 12:49 IMPRESSION: CHEST: 1. No pulmonary embolism. 2. Mediastinal lymphadenopathy. ABDOMEN/PELVIS: 1. Fat infiltration of liver cirrhosis. 2. Cholelithiasis. 3. Ascites 4. Thickened wall of the sigmoid colon. Colitis is possible. Clinical correlation and follow-up advised. 5. Bilateral fat containing inguinal hernias. 6. Atherosclerotic changes of the celiac and superior mesenteric arteries with mild to moderate narrowing. 7. Graft is seen in the area of the left iliac artery. Paracentesis Ultrasound 11/17/24 16:15 IMPRESSION: 1. Successful ultrasound-guided paracentesis yielding 2300 mL of clear yellow fluid. ECG Data EKG #1: Attestation: I personally reviewed and interpreted this ECG as follows: ECG completion date: 11/17/24 ECG completion time: 11:23 Interpretation: Normal sinus rhythm at a rate of 60 beats per minute. PA interval 149. QRS 92. QT/QTC 428/429. Good R-wave progression across the precordial leads. T-wave inversion in 3 and some flattening in AVF but otherwise upright in contiguous inferior lead 2. Also T-wave inversion in V3 though I suspect this is due to lead placement Discharge Plan Discharge Clinical Impression: Abdominal distension, Leukocytosis, Hyponatremia, Hypoalbuminemia, Abnormal transaminases, LAD (lymphadenopathy), mediastinal, Liver cirrhosis, Alcohol induced fatty liver, Cholelithiasis, Ascites, Sigmoid thickening, Bilateral inguinal hernia Patient Disposition: Still a Patient Condition: Stable
--- OUTSIDE RECORDS SUMMARY | 2024-11-17 11:04 | XMS_ITS | Continuity of Care Document ---
Author Organization [facility] Address [address] [place] [address] Phone Care Team Providers Care Software Quality Specialist Name Role Phone Dutta OD, Shade Unavailable Unavailable Advance Directives Directive Yes / No Effective Date File Name No Information Encounters Encounter Description Practice Location Reason(s) For Visit Diagnoses Date Provider Providers Copied on Encounter [facility], [address], [place], [place], [id number], [place] tel:[phone] [facility] No Information 2-200 6 Dutta OD [place]. [address] , [address], [place], [address], [place]. tel:[phone] Family History Family Member Type Diagnosis Age At Onset No Information Payers Payer name Insurance type Covered republican ID Authoriza tion(s) [employer] SOI CI [id number] Social History Type Description Quantity Date Captured [...]
--- OUTSIDE RECORDS SUMMARY | 2024-11-17 11:04 | XMS_ITS | Referral Summary ---
Author Organization [facility] Address [address] [place] [address] Care Team Providers Care Rigger Up Name Role Phone Zacarias Gutierrez DO Primary Care Provider [phone]- [phone] Renny Page MD PhD Unavailable [phone] Encounters Date Type Department Care Team Description 11/03/2024 2:48 PM CDT - 11/03/2024 11:59 PM CDT Hospital Encounter [facility] [address] [place] [id number] Discharge Disposition: Discharge to home or self care 10/23/2024 Telephone [facility] [address] [place] [address] for Advanced Medicine [address] [place] [address] Yi Porter MD Lidocaine patch PA approved 07/01/24-06/30/25 10/22/2024 11:45 AM CDT - 10/22/2024 11:59 PM CDT Hospital Encounter [facility] [address] [place] [address] for Advanced Medicine [address] [place] [address] Yi Porter MD Chronic low back pain [...] on file Legal 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 Gender Identity Male 07/11/2021 8:22 AM HEAVY MOBILE EQUIPMENT OPERATOR Sexual Orientation Straight 07/11/2021 8: 22 AM HEAVY MOBILE EQUIPMENT OPERATOR Last Filed Vital Signs Vital Sign Reading [...] as needed Medical Devices Implanted Type Area Drawer Hardware Worker Device Identifier Shelf Expiration Date Model / Serial / Lot [employer] [id number]-[id number] Vascu-Guard 8x.8cm Peripheral Patch Vascular Bovine Pericardium - [id number] - [id number] Implanted:Qty: 1 on 12/17/2018 by Renny Page MD PhD at [facility] Graft Right: Neck [employer] 07/23/2023 [id number]-[id number] / [id number] / [id number] [employer] System Sprint Percutaneous Electrical Nerve Stimulation 2559-0926 - [id number] Implanted:Qty: 1 on 07/10/2022 by Yi Porter MD at [facility] Stimulator Bilatera l: Back [employer] 05/01/2023 [id number] / / [id number] Procedures Procedure Name Priority Date/Time Associated [...] Outside Reference (11/03/2024 2:48 PM CDT) Impressions RAD_PACS_[facility] - 11/03/2024 2:48 PM CDT These images are for Reference purposes only and have not been reviewed by [facility]iology. There will be no report generated by a [facility] Radiologist. Narrative RAD_PACS_[facility] - 11/03/2024 2:48 PM [...] in the abdomen or pelvis. 2. Patent xvmub-tnug-senafys bypass. 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 The [place] left common iliac artery is occluded with reconstitution of the [place] left internal and external iliac via collateral [...] and without evidence of significant stenosis. The [place] left common iliac artery is occluded with reconstitution of the [place] left internal and external iliac via collateral [...] in the abdomen or pelvis. 2. Patent tcczk-isqp-gohxhym bypass. 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 Address: [address] [address] [place] [address] [facility] [id number] [facility] MEDICARE [facility] MEDICARE T MEDICARE Advance Directives For more information, please contact: [phone] Documents on File Type Date Recorded Patient Dry Ice Maker Expl anation ADVANCE DIRECTIVE 12/22/2018 1:17 PM ED MCCONNELL * Full Code (Latest Code Status on File) Date Activated Date Inactivated Comments 12/17/2018 7:16 PM 12/18/2018 4:46 PM Care Teams Rigger Up Relationship Specialty Start Date End Date Zacarias Gutierrez DO PCP - General 12/05/11 Renny Page MD PhD Surgeon Vascular Surgery 12/18/18
--- OUTSIDE RECORDS SUMMARY | 2024-11-17 11:04 | XMS_ITS | Clinical Summary ---
Author Organization [facility] Address [address] [address] Care Team Providers Care Graining Operator Name Role Phone Zacarias Gutierrez DO Primary Care Provider [phone] Renny Page MD PhD Unavailable [phone] Allergies Active Allergy Reactions Criticality Noted Date [...] - 11/03/2024 11:59 PM CDT Hospital Encounter [facility]) [address] [place] [address] Discharge Disposition: Discharge to home or self care 10/23/2024 Telephone [facility] [place] [facility] [address] [place] [address] Advanced Medicine [address] [place] [address] Yi Porter MD Lidocaine patch PA approved 07/01/24-06/30/25 10/22/2024 11:45 AM CDT - 10/22/2024 11:59 PM CDT Hospital Encounter [facility] [place] [facility] [address] [place] [address] Advanced Medicine [address] [place] [address] Yi Porter MD Chronic low back pain [...] on file Legal 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 Graft Right: Neck [employer] 07/23/2023 VG-0108N / [id number] / [id number] [employer] System Sprint Percutaneous Electrical Nerve Stimulation [id number] - [id number] Implanted:Qty: 1 on 07/10/2022 by Yi Porter MD at [facility] Stimulator Bilatera l: Back [employer] 05/01/2023 [id number] / / [id number] 22 Procedures Procedure Name Priority Date/Time Associated [...] Outside Reference (11/03/2024 2:48 PM CDT) Impressions RAD[facility]PACS[facility] - 11/03/2024 2:48 PM CDT These images are for Reference purposes only and have not been reviewed by [facility] Radiology. There will be no report generated by a [facility] Radiologist. Narrative RAD_PACS_[facility] - 11/03/2024 2:48 PM [...] in the abdomen or pelvis. 2. Patent mvpzg-qikm-rjkotmx bypass. 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 The [place] left common iliac artery is occluded with reconstitution of the [place] left internal and external iliac via collateral [...] and without evidence of significant stenosis. The [place] left common iliac artery is occluded with reconstitution of the [place] left internal and external iliac via collateral [...] in the abdomen or pelvis. 2. Patent ntxby-alms-elwifka bypass. 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 at the origin of the [place] internal/external iliac arteries on the left and [...] Recently Relevant to Health Maintenance Insurance [facility]ICARE [facility] [id number] [facility] MEDICARE [facility] MEDICARE [facility] MEDICARE Advance Directives For more information, please contact: [phone] Documents on File Type Date Recorded Patient Delivery Crew Member Expl anation ADVANCE DIRECTIVE 12/22/2018 1:17 PM ED MCCONNELL * Full Code (Latest Code Status on File) Date Activated Date Inactivated Comments 12/17/2018 7:16 PM 12/18/2018 4:46 PM Care Teams Graining Operator Relationship Specialty Start Date End Date Zacarias Gutierrez DO PCP - General 12/05/11 Renny Page MD PhD Surgeon Vascular Surgery 12/18/18
--- OUTSIDE RECORDS SUMMARY | 2024-11-17 11:04 | XMS_ITS | Clinical Summary ---
Author Organization [facility] Address [address] [place] [address] Care Team Providers Care Animal Ride Attendant Name Role Phone Zacarias Guiterrez DO Primary Care Provider [phone] Source Comments [facility],non-owned Affiliates and Associated Physician Practices is amultiple site organization consisting of ambulatory clinics and hospital sitesin [place], [place], [place] and [place]. This disclosure is being madepursuant to the Care Everywhere program and may not contain all information available regarding this patient. 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 Gender Identity Not on file Sexual Orientation Not on file Last Filed Vital Signs Vital Sign Reading Time Taken Comments Blood Pressure 152/83 07/08/2017 1:33 PM COMPANY DOCTOR Pulse 103 07/08/2017 1:33 PM COMPANY DOCTOR Temperature 36.8 C (98.2 F) 02/26/2017 12:04 PM CDT Respiratory Rate 18 02/26/2017 8:30 PM CDT Oxygen Saturation 100% 07/08/2017 1:33 PM COMPANY DOCTOR Inhaled Oxygen Concentration - - Weight 76 kg (167 lb 9.6 oz) 07/08/2017 1:33 PM COMPANY DOCTOR Height 165.1 cm (5' 5) 07/08/2017 1:33 PM COMPANY DOCTOR Body Mass Index 27.89 07/08/2017 1:33 PM COMPANY DOCTOR Plan of Treatment Health Maintenance Due Date [...] 7 - 26 mg/dL 02/13/2018 3:30 PM [facility] Creatinine 0.9 0.6 - 1.2 mg/dL 02/13/2018 3:30 PM [facility] Sodium 139 136 - 145 mmol/L 02/13/2018 3:30 PM [facility] Potassium 4.1 3.5 - 4.5 mmol/L 02/13/2018 3:30 PM [facility] Chloride 104 98 - 107 mmol/L 02/13/2018 3:30 PM [facility] CO2 28 22 - 29 mmol/L 02/13/2018 3:30 PM [facility] Glucose 99 70 - 115 mg/dL 02/13/2018 3:30 PM [facility] Calcium 9.7 8.4 - 10.2 mg/dL 02/13/2018 3:30 PM [facility] Protein Total 7.1 6.0 - 8.3 g/dL 02/13/2018 3:30 PM [facility] Albumin 3.7 3.4 - 5.0 g/dL 02/13/2018 3:30 PM [facility] Bilirubin Total 0.3 0.2 - 1.2 mg/dL 02/13/2018 3:30 PM [facility] Alkaline Phosphatase 136 40 - 150 Units/L 02/13/2018 3:30 PM [facility] ALT 20 0 - 55 Units/L 02/13/2018 3:30 PM [facility] AST 22 5 - 34 Units/L 02/13/2018 3:30 PM [facility] Anion Gap 11 8 - 18 02/13/2018 3:30 PM [facility] BUN/Creatinine Ratio 13 7 - 23 02/13/2018 3:30 PM [facility] Osmolality Calculated 288 270 - 300 mOsm/kg 02/13/2018 3:30 PM [facility] Albumin/Globulin Ratio 1.1 1.1 - 2.3 02/13/2018 3:30 PM [facility] eGFR >60 >60 mL/min/1.7 3 m2 02/13/2018 3:30 PM [facility] Blood BLOOD SPECIMEN / Unknown Lab Venipuncture / Unknown 02/13/2018 2:44 PM CDT 02/13/2018 3:05 PM CDT us Justino Bateman MD LAB - CHEMISTRY ORDERABLES Ruchi l Result [address] [phone] * HEPATITIS C ANTIBODY (01/27/2017 8:29 AM CDT) Hepatitis C Antibody Non-react [facility] Comment: Hepatitis C Antibody screen indicates no [...] LAB - CHEMISTRY ORDERA BLES Final Result [facility] [address] [place] [address], [facility] [phone] from Last 3 Months or Most Recently Relevant to Health Maintenance Insurance [employer] Care Teams Animal Ride Attendant Relationship Specialty Start Date End Date Zacarias Gutierrez DO PCP - General 02/19/17
--- OUTSIDE RECORDS SUMMARY | 2024-11-17 11:04 | XMS_ITS | Encounter Summary ---
Author Organization [facility] Address [address] [place] [address] Care Team Providers Care Oil Furnace Installer Name Role Phone Zacarias Gutierrez DO Primary Care Provider [phone] Renny Page MD PhD Unavailable [phone] Encounter Details Date Type Department Care Team (Late st Contact Info) Description 05/27/2023 Telephone [facility] [place] [facility] [address] [facility] [address] [place] [address] Yi Porter MD [address] [facility] [address] [place], [place] [id number] Social History Tobacco Use Types Packs/Day Years [...] on file Legal Sex Male 2:20 AM [employer] Gender Identity Male 07/11/2021 8:22 AM [employer] Sexual Orientation Straight 07/11/2021 8: 22 AM [employer] documented as of this encounter Functional Status [...] on filedocumented in this encounter Care Teams Oil Furnace Installer Relationship Specialty Start Date End Date Zacarias Gutierrez DO PCP - General 12/05/11 Renny Page MD PhD Surgeon Vascular Surgery 12/18/18 documented as of this encounter
--- OUTSIDE RECORDS SUMMARY | 2024-11-17 11:04 | XMS_ITS | CONTINUITY OF CARE DOCUMENT ---
Author Name angela miller Address Unknown Organization [facility] Address [address] [place] [address] [address] [place] [address] Phone [phone] Care Team Providers Care Feed Mixer Helper Name Role Phone angela miller Unavailable Unavailable INSURANCE PROVIDERS Payer name Policy type / Coverage type [place] red constitution party ID [facility] [id number]
--- NOTE | 2024-11-17 11:05 | ECG_ITS ---
Test Date: 2024-11-17 11:23:11 Measurements Intervals [place] Rate: 60 P: 73 [place]: 149 QRS: 10 QRSD: 92 T: 5 QT: 428 QTc: 430 Interpretive Statements SINUS RHYTHM NONSPECIFIC T-WAVE ABNORMALITY No previous ECG available for comparison Electronically Signed On 11-17-2024 13:42:29 CDT by Мария Cruz M.D.
[2024-11-17 11:06] LABS: Basophils Absolute Auto 0.1 K/mm3 (0.0-0.1); Basophils Percent Auto 0.5 % (0.2-1.2); Eosinophils Absolute Auto 0.1 K/mm3 (0-0.3); Eosinophils Percent Auto 0.3 % (0-4.4); Hematocrit 41.1 % (42.0-52.0); Hemoglobin 13.9 g/dL (14.0-18.0); Immature Granulocyte Absolute 0.12 K/mm3 (0.00-0.031); Immature Granulocyte Percent A 0.7 % (0-0.5); Lymphocytes Absolute Auto 3.11 K/mm3 (0.9-3.2); Lymphocytes Percent Auto 18.8 % (18.3-44.2); Mean Corpuscular HGB Conc 33.8 g/dl (32-36); Mean Corpuscular Hemoglobin 36.1 pg (26-34); Mean Corpuscular Volume 106.8 fl (80-100); Mean Platelet Volume 10.8 fl (7.4-10.4); Monocytes Absolute Auto 1.1 K/mm3 (0.1-0.6); Monocytes Percent Auto 6.7 % (2.6-8.5); Neutrophils Absolute Auto 12.1 K/mm3 (1.3-6.7); Platelet Count Result 223 k/mm3 (150-375); Red Blood Count 3.85 M/mm3 (4.6-6.20); Red Cell Distribution Width 13.7 % (11.5-14.5); White Blood Count 16.6 K/mm3 (4.5-10.0)
[2024-11-17] MEDS: SODIUM CHLORIDE 0.9% IV 500 ML 999 ML IV CONT (11:20)
[2024-11-17 11:23] LABS: Ammonia 23 umol/L (9-30)
[2024-11-17 11:24] LABS: Alanine Aminotransferase 45 U/L (6-50); Alkaline Phosphatase 348 U/L (38-126); Anion Gap 9 mmol/L (4-12); Aspartate Amino Transferase 112 U/L (17-59); Bilirubin,Total 4.1 mg/dL (0.2-1.3); Blood Urea Nitrogen 16 mg/dL (9-20); Calcium 8.1 mg/dL (8.4-10.2); Carbon Dioxide 25 mmol/L (22-30); Chloride 93 mmol/L (98-107); Estimated CRCL calculation 78 ml/min; Estimated Glomerular Filt Rate > 60; Glucose 135 mg/dL (65-110); Lipase 247 U/L (23-300); Potassium 3.7 mmol/L (3.4-5.0); Sodium 127 mmol/L (137-145)
--- NOTE | 2024-11-17 11:25 | PC.NURSE ---
pt report they do not produce much urine and does not have the urge to provide UA at this time. educated pt to use call light if they have the urge to urinate.
[2024-11-17 11:26] LABS: Schistocytes None Seen
[2024-11-17 11:27] LABS: Anisocytosis 1+
[2024-11-17 11:47] LABS: NT Pro B Type Natriuretic Pept 438 pg/mL (19.9-100); Troponin I < 0.012 ng/mL (0.000-0.034)
[2024-11-17 11:48] LABS: INR 1.2; Prothrombin Time 16.2 Seconds (11.1-14.7)
[2024-11-17 11:49] LABS: Partial Thromboplastin Time 31.5 Seconds (22.3-36.8)
[2024-11-17 12:03] LABS: D Dimer 3.76 ug/mL (<0.48)
[2024-11-17 12:07] LABS: Influenza A QL RT-PCR Negative (Negative); Influenza B QL RT-PCR Negative (Negative); RSV RNA, RT-PCR Negative (Negative); SARS-CoV-2 RNA PCR Negative (Negative)
[2024-11-17 12:16] LABS: Platelet Estimate Adequate (Adequate)
[2024-11-17 12:54] LABS: Bilirubin Direct 0.8 mg/dL (0-0.3)
[2024-11-17] MEDS: ALBUTEROL SULFATE NEB 2.5 MG/3 ML INH INHALATION (12:54)
[2024-11-17 13:56] LABS: Add Urine Microscopic? YES; Appearance Urine Clear (Clear); Bacteria Urine None Seen /hpf; Bilirubin Urine 2+ (Negative); Blood Urine Negative (Negative); Color Urine Dark Yellow (Yellow); Glucose Urine UA Negative (Negative); Ketones Urine Trace mg/dL (Negative); Leukocyte Esterase Ur Trace LEU/UL (Negative); Need Manual Microscopic Reviewed; Nitrate Urine Positive (Negative); Protein Urine Trace mg/dL (Negative); RBC Urine 0-2 /hpf (0-2); Specific Grav Ur > 1.045 (1.001-1.035); Squamous Epithelial Cell Urine None Seen /hpf (Few); WBC Urine 0-5 /hpf (0-3)
[2024-11-17 14:36] LABS: Creatinine Urine 170.6 mg/dL
[2024-11-17 14:39] LABS: Sodium Urine Random < 5 meq/L
--- NOTE | 2024-11-17 15:03 | CY_PTH ---
PATIENT: Jp Boudreaux LOC: [id number] U#:[id number] AGE/SX: 64/M ROOM: 255 RE11/17/[address]: Gabi Encarnacion MD : 1960 BED: 01 DIS: 11/18/2024 SPEC #: [id number] RECD: 11/18/24 07:37 STATUS: SOUEsha REQ #: [id number] MARCUS: 11/17/24 15:[address]: Collette Richards DEPT: [facility] Cytology RECD BY: Jane Todd ENTERED: 11/18/24 07:37 SP TYPE: Cytology OTHR DR: MD Zacarias Khan, DO Tissues: A - Ascites Fluid Procedures: Hematoxylin and Eosin Stain Cell Block CD68 [id number] Calretinin Cytopathology Cytospin
--- NOTE | 2024-11-17 16:58 | ADMGEN ---
This patient, Jp Boudreaux, was admitted to Medical Room 255-. Patient/family oriented to hospital policies and general routines including ID bracelet, bed and alarms, visiting hours, pain management, procedures, bathroom and other care routines, personal items, smoking policy, room service/diet, and visiting hours. Information on how to activate the Rapid Response Team has been discussed. Patient/Family are encouraged to report perceived risks to care and to ask questions if they do not understand what they are told or what they should do.
[2024-11-17 17:02] LABS: Appearance Peritoneal Fluid Hazy (Clear); Color Peritoneal Fluid Yellow (Colorless); Source Peritoneal Fluid Peritoneal Fluid
[2024-11-17 17:03] LABS: Lymphocytes Peritoneal Fluid 20 %; Macrophages Peritoneal Fluid 63 %; Mesothelial Cells Peritoneal Fluid 5 %; Neutrophils Peritoneal Fluid 12 % (0-25); Nucleated Cells Peritoneal Flu 179 /uL (0-500); RBC Peritoneal Fluid < 2000 /uL (0-10000)
[2024-11-17 21:00] LABS: Lactate Dehydrogenase 298 U/L (120-246)
[2024-11-18] MEDS: ALBUMIN HUMAN 25% 25 GM/100 ML 100 ML IVPB ×4 (00:35→17:44)
[2024-11-18 04:59] LABS: Basophils Absolute Auto 0.1 K/mm3 (0.0-0.1); Basophils Percent Auto 0.8 % (0.2-1.2); Eosinophils Absolute Auto 0.1 K/mm3 (0-0.3); Hematocrit 34.5 % (42.0-52.0); Hemoglobin 11.7 g/dL (14.0-18.0); Immature Granulocyte Absolute 0.05 K/mm3 (0.00-0.031); Immature Granulocyte Percent A 0.5 % (0-0.5); Lymphocytes Absolute Auto 2.63 K/mm3 (0.9-3.2); Lymphocytes Percent Auto 25.3 % (18.3-44.2); Mean Corpuscular HGB Conc 33.9 g/dl (32-36); Mean Corpuscular Hemoglobin 35.3 pg (26-34); Mean Corpuscular Volume 104.2 fl (80-100); Mean Platelet Volume 10.5 fl (7.4-10.4); Monocytes Absolute Auto 0.8 K/mm3 (0.1-0.6); Monocytes Percent Auto 7.8 % (2.6-8.5); Neutrophils Absolute Auto 6.7 K/mm3 (1.3-6.7); Neutrophils Percent Auto 64.6 % (45.5-73.1); Platelet Count Result 143 k/mm3 (150-375); Red Blood Count 3.31 M/mm3 (4.6-6.20); Red Cell Distribution Width 13.7 % (11.5-14.5); White Blood Count 10.4 K/mm3 (4.5-10.0)
[2024-11-18 05:21] LABS: Alanine Aminotransferase 31 U/L (6-50); Albumin Level 2.5 g/dL (3.5-5.1); Alkaline Phosphatase 260 U/L (38-126); Anion Gap 2 mmol/L (4-12); Aspartate Amino Transferase 84 U/L (17-59); Bilirubin,Total 3.8 mg/dL (0.2-1.3); Blood Urea Nitrogen 12 mg/dL (9-20); Calcium 7.4 mg/dL (8.4-10.2); Carbon Dioxide 25 mmol/L (22-30); Chloride 101 mmol/L (98-107); Estimated CRCL calculation 84 ml/min; Estimated Glomerular Filt Rate > 60; Glucose 83 mg/dL (65-110); Potassium 3.7 mmol/L (3.4-5.0); Sodium 128 mmol/L (137-145)
[2024-11-18 05:49] VITALS: BP 100/52; PULSE 70; RESP 18; TEMP 36.3; O2SAT 95
--- NOTE | 2024-11-18 07:22 | WPDGICN ---
Assessment and Plan Assessment and plan (1) Liver cirrhosis: Code(s): K74.60 - Unspecified cirrhosis of liver Status: Acute Assessment and Plan: Mr. Boudreaux has advanced cirrhosis attributed to chronic heavy alcohol use. Despite this, he is currently clinically stable and deemed appropriate for discharge home. Discharge planning includes an essential dietitian consultation to guide appropriate protein intake and adherence to a strict low-sodium diet. He was strongly counseled on absolute alcohol abstinence, and a thorough discussion was held regarding his prognosis and the critical need for liver transplant evaluation. He will be referred for outpatient follow-up at our clinic and formally referred to the [facility] Transplant Team. He will be discharged on furosemide 40 mg daily and spironolactone 100 mg daily. (2) Ascites: Code(s): R18.8 - Other ascites Status: Acute GI Consult Note Consult date/time: 11/18/24 07:22 HPI: Mr. Jp Boudreaux is a 64-year-old male admitted with massive ascites and a three-day history of significantly increased abdominal girth. He reports a chronic history of heavy alcohol consumption (3-4 beers daily), which he ceased three days prior to presentation. He was referred to the emergency room by his primary care physician for evaluation. laboratory findings on admission include: CBC: WBC 10.4, Hgb 11.7, Hct 34.5, Plt 143 Coagulation: INR 1.2 Renal Function: Creatinine 0.64 Liver Function: Total Bilirubin 3.8, AST 84, ALT 31, Alkaline Phosphatase 260, Albumin 2.5 An abdominal paracentesis was performed yesterday, yielding 2300 mL of clear ascitic fluid. Analysis of the fluid showed no PMN elevation, ruling out spontaneous bacterial peritonitis. The patient currently reports symptomatic improvement and desires discharge. Review of Systems Review of Systems: All systems reviewed & are unremarkable except as noted in HPI and below [facility] Past Medical History Medical History Chronic pain PAD (peripheral artery disease) Leukocytosis HTN (hypertension) PVD (peripheral vascular disease) AAA (abdominal aortic aneurysm) Osteoarthritis MRSA (methicillin resistant Staphylococcus aureus) Degenerative arthritis of left knee Hypogonadism Amputated right leg History of colon polyps GERD (gastroesophageal reflux disease) HLD (hyperlipidemia) Dystonia of right hand CTS (carpal tunnel syndrome) Bursitis Situational anxiety Surgical History Surgical History S/P arthroscopic surgery of left knee 2012 History of carpal tunnel release right wrist H/O ohzuw-dhqqm-oofimqh bypass 05/24/2010 Carotid artery disorder surgery Family History Family History Mother Family history of cardiovascular disease Heart disease Social History Social History Smoking packs per day: 1 Smoking cigarettes per day: 20.0 Smoking status: Current every day smoker Tobacco type: cigarettes Alcohol intake: current Substance use: current Substance use type: marijuana Other substance usage details: 2 shots of whisky Do You Feel Safe in your Home?: Yes Lack of Transportation: No Lack of Food: Never True Current Housing: I Have Housing Concerned About Future Housing: No Difficulty Paying Gas/Electric Bills: No Difficulty Paying for Meds: No Currently Unemployed: No Education: High School Diploma/GED Difficulty w/ Childcare or Family Care: No Spiritual care concerns: No Meds Home Medications and Allergies Home Medications ?Medication ?Instructions ?Recorded ?Confirmed ?Type aspirin 325 mg tablet 325 mg PO DAILY 10/07/19 11/17/24 History multivitamin 1 tablet PO DAILY 10/07/19 11/17/24 History omega-3 fatty acids 1,000 mg 1,000 mg PO DAILY 10/07/19 11/17/24 History capsule (Fish Oil Concentrate) nebivolol 20 mg tablet 20 mg PO DAILY #90 tabs 05/11/24 11/17/24 Rx amlodipine 10 mg tablet 10 mg PO DAILY #90 tabs 07/27/24 11/17/24 Rx atorvastatin 20 mg tablet 20 mg PO DAILY #90 tabs 08/07/24 11/17/24 Rx albuterol sulfate 90 mcg/actuation See Rx Instructions .Route 08/28/24 11/17/24 Rx aerosol inhaler .COMPLEX #8.5 ea esomeprazole magnesium 20 mg See Rx Instructions .Route 11/09/24 11/17/24 Rx capsule,delayed release .COMPLEX #90 caps Allergies Allergy/AdvReac Type Severity Reaction Status Date / Time No Known Allergies Allergy Verified 11/17/24 08:29 Vital Signs Vital Signs - 24 hr 11/17/24 09:57 11/17/24 11:01 11/17/24 11:17 Temperature 97.6 F Pulse Rate 60 61 Respiratory Rate 16 22 H Blood Pressure 99/43 L 111/74 101/66 Pulse Oximetry 95 100 100 Oxygen Delivery Room Air 11/17/24 11:30 11/17/24 11:31 11/17/24 12:02 Temperature Pulse Rate 63 Respiratory Rate 18 Blood Pressure 101/62 103/75 Pulse Oximetry 96 98 96 Oxygen Delivery 11/17/24 12:17 11/17/24 12:31 11/17/24 12:50 Temperature Pulse Rate 73 Respiratory Rate 20 Blood Pressure 105/74 114/75 Pulse Oximetry 96 96 96 Oxygen Delivery 11/17/24 12:54 11/17/24 13:01 11/17/24 13:15 Temperature Pulse Rate 70 74 70 Respiratory Rate 21 H 26 H 22 H Blood Pressure Pulse Oximetry 98 Oxygen Delivery 11/17/24 13:35 11/17/24 13:46 11/17/24 14:01 Temperature Pulse Rate 64 63 66 Respiratory Rate 20 29 H 31 H Blood Pressure 107/78 100/70 105/70 Pulse Oximetry 92 93 94 Oxygen Delivery 11/17/24 14:32 11/17/24 14:33 11/17/24 14:46 Temperature Pulse Rate 65 65 60 Respiratory Rate 22 H 12 26 H Blood Pressure 122/71 110/60 Pulse Oximetry 95 94 95 Oxygen Delivery 11/17/24 15:01 11/17/24 15:43 11/17/24 15:48 Temperature Pulse Rate 60 62 62 Respiratory Rate 18 18 17 Blood Pressure 100/63 112/53 L 110/66 Pulse Oximetry 97 98 96 Oxygen Delivery 11/17/24 15:49 11/17/24 16:01 11/17/24 16:27 Temperature Pulse Rate 60 61 63 Respiratory Rate 17 14 22 H Blood Pressure 119/62 102/57 L Pulse Oximetry 98 96 97 Oxygen Delivery 11/17/24 17:08 11/17/24 17:22 11/17/24 20:25 Temperature 96.5 F L 98.3 F Pulse Rate 64 64 64 Respiratory Rate 18 18 17 Blood Pressure 106/55 L 107/53 L Pulse Oximetry 98 98 95 Oxygen Delivery Room Air 11/18/24 05:49 Temperature 97.3 F L Pulse Rate 70 Respiratory Rate 18 Blood Pressure 100/52 L Pulse Oximetry 95 Oxygen Delivery Exam GI: Other: Significant ascites (positive fluid wave and shifting dullness). No collateral circulation. Results Labs 11/18/24 04:52 11/18/24 04:52 Labs: Short CBC 11/17/24 11/18/24 Range/Units 10:57 04:52 WBC 16.6 H 10.4 H (4.5-10.0) K/mm3 Hgb 13.9 L 11.7 L (14.0-18.0) g/dL Hct 41.1 L 34.5 L (42.0-52.0) % Plt Count 223 143 L (150-375) k/mm3 BMP 11/17/24 11/18/24 10:57 04:52 Sodium 127 L 128 L Potassium 3.7 3.7 Chloride 93 L 101 Carbon Dioxide 25 25 BUN 16 12 Creatinine 0.70 0.64 L Glucose 135 H 83 Calcium 8.1 L 7.4 L Cardiac Enzymes 11/17/24 Range/Units 10:56 Troponin I < 0.012 (0.000-0.034) ng/mL Liver Function 11/17/24 11/17/24 11/18/24 Range/Units 10:56 10:57 04:52 Total Bilirubin 4.1 H 3.8 H (0.2-1.3) mg/dL Direct Bilirubin 0.8 H (0-0.3) mg/dL AST 112 H 84 H (17-59) U/L ALT 45 31 (6-50) U/L Alkaline Phosphatase 348 H 260 H (38-126) U/L Albumin 3.0 L 2.5 L (3.5-5.1) g/dL Urine 11/17/24 Range/Units 13:33 Urine Color Dark yellow (Yellow) Urine Appearance Clear (Clear) Urine pH 6.0 (5.0-9.0) Ur Specific Wesley > 1.045 H (1.001-1.035) Urine Protein Trace (Negative) mg/dL Urine Glucose (UA) Negative (Negative) mg/dL
[2024-11-18 07:55] LABS: Iron 97 ug/dL (49-181)
[2024-11-18 08:03] LABS: Percent Iron Saturation 58 % (20-50)
[2024-11-18] MEDS: ASPIRIN 325 MG TABLET PO (09:14)
[2024-11-18] MEDS: PANTOPRAZOLE 40 MG TABLET PO (09:16)
[2024-11-18] MEDS: THIAMINE HCL 100 MG TABLET PO (09:16)
[2024-11-18] MEDS: MULTIVITAMINS THERAPEUTIC TAB (*BKC) 1 TABLET PO (09:16)
[2024-11-18] MEDS: FOLIC ACID 1 MG TABLET PO (09:16)
[2024-11-18] MEDS: OMEGA 3 POLYUNSAT FATTY ACIDS 1 GM CAP PO (09:16)
[2024-11-18] MEDS: ATORVASTATIN 20 MG TABLET PO (09:16)
[2024-11-18 09:24] LABS: Hepatitis B Surface Antigen Negative (Negative)
[2024-11-18] MEDS: FUROSEMIDE 40 MG TABLET PO (09:27)
[2024-11-18] MEDS: SPIRONOLACTONE 50 MG TABLET 100 MG PO (09:27)
[2024-11-18 09:30] LABS: HAV RESULT Negative (Negative); Hepatitis B Core IgM Result Negative (Negative)
[2024-11-18 09:32] VITALS: BP 106/50
[2024-11-18 09:41] LABS: Hepatitis C Virus Antibody Negative (Negative)
--- NOTE | 2024-11-18 10:07 | PM.SD2 ---
Same Day Admit/Disch: HPI History of Present Illness Chief complaint: ascites, cirrhosis Narrative: Jp Boudreaux is a 64 year old male that came to the hospital with abdominal bloating and pain. Patient notes that talking with the stress of his father's estate he did start drinking more heavily, having a bottle of wine and 2 shots of Southern comfort at night to help him fall asleep. When he started feeling like he was becoming symptomatic, he stopped drinking the wine. Patient reports periods where he has been able prior to stop drinking for 6 months. Patient reports he was feeling short of breath prior to paracentesis. Patient denies chest pain, palpitations, headache, dizziness, shortness of breath, nausea, or vomiting at present. Patient reports that due to back pain he has not been able to use prosthesis leg and started using crutches. Estimates that he has a 10 lb weight gain primarily over the past 2 weeks. Patient smokes 1 pack of cigarettes a day for the past 50 years and uses marijuana gummies daily. ER work up: CBC: WBC 16.6, Hgb 13.9, Hct 41.1, Plt 223. Coagulation: INR 1.2. Renal Function: Creatinine 0.64. Liver Function: Total Bilirubin 3.8, AST 84, ALT 31, Alkaline Phosphatase 260, Albumin 2.5. Hepatitis panel negative. Respiratory panel negative. BNP 438. d dimer 3.76. CTA chest/abdomen/pelvis showed: IMPRESSION: CHEST: 1. No pulmonary embolism. 2. Mediastinal lymphadenopathy. ABDOMEN/PELVIS: 1. Fat infiltration of liver cirrhosis. 2. Cholelithiasis. 3. Ascites 4. Thickened wall of the sigmoid colon. Colitis is possible. Clinical correlation and follow-up advised. 5. Bilateral fat containing inguinal hernias. 6. Atherosclerotic changes of the celiac and superior mesenteric arteries with mild to moderate narrowing. 7. Graft is seen in the area of the left iliac artery. An abdominal paracentesis was performed yesterday, yielding 2300 mL of clear ascitic fluid. Analysis of the fluid showed no PMN elevation, ruling out spontaneous bacterial peritonitis. GI consult completed and will follow patient as outpatient, they are formally referring patient to the [facility] Transplant Team. Repeat labs: WBC 10.4, AST 84, Alkaline phosphatase 260. Venous dopplers were negative. [facility] Past Medical History Medical History (Updated 11/18/24 @ 11:57 by Collette Richards MD) Above knee amputation of right lower extremity Left carotid artery stenosis Chronic pain PAD (peripheral artery disease) Leukocytosis HTN (hypertension) PVD (peripheral vascular disease) AAA (abdominal aortic aneurysm) Osteoarthritis MRSA (methicillin resistant Staphylococcus aureus) Degenerative arthritis of left knee Hypogonadism History of colon polyps GERD (gastroesophageal reflux disease) HLD (hyperlipidemia) Dystonia of right hand CTS (carpal tunnel syndrome) Bursitis Situational anxiety Surgical History Surgical History H/O colonoscopy with polypectomy 2018 S/P arthroscopic surgery of left knee 2013 History of carpal tunnel release right wrist H/O [id number] bypass 05/24/2010 Carotid artery disorder surgery 2019, Right Family History Family History Mother Family history of cardiovascular disease Heart disease Social History Social History (Updated 11/18/24 @ 11:59 by Collette Richards MD) Smoking packs per day: 1 Smoking cigarettes per day: 20.0 Smoking status: Current every day smoker Tobacco type: cigarettes Alcohol intake: current Substance use: current Substance use type: marijuana Other substance usage details: 2 shots of whisky Do You Feel Safe in your Home?: Yes Lack of Transportation: No Lack of Food: Never True Current Housing: I Have Housing Concerned About Future Housing: No Difficulty Paying Gas/Electric Bills: No Difficulty Paying for Meds: No Currently Unemployed: No Education: High School Diploma/GED Difficulty w/ Childcare or Family Care: No Living arrangements: with family Spiritual care concerns: No Same Day Admit/Disch: Med Pre-admit Medications Home Medications ?Medication ?Instructions ?Recorded ?Confirmed ?Type aspirin 325 mg tablet 325 mg PO DAILY 10/07/19 11/17/24 History multivitamin 1 tablet PO DAILY 10/07/19 11/17/24 History omega-3 fatty acids 1,000 mg 1,000 mg PO DAILY 10/07/19 11/17/24 History capsule (Fish Oil Concentrate) nebivolol 20 mg tablet 20 mg PO DAILY #90 tabs 05/11/24 11/17/24 Rx atorvastatin 20 mg tablet 20 mg PO DAILY #90 tabs 08/07/24 11/17/24 Rx albuterol sulfate 90 mcg/actuation See Rx Instructions .Route 08/28/24 11/17/24 Rx aerosol inhaler .COMPLEX #8.5 ea esomeprazole magnesium 20 mg See Rx Instructions .Route 11/09/24 11/17/24 Rx capsule,delayed release .COMPLEX #90 caps furosemide 40 mg tablet 40 mg PO DAILY #14 tabs 11/18/24 Rx spironolactone 50 mg tablet 100 mg (2 x 50 mg) PO QAM #14 tabs 11/18/24 Rx (Aldactone) Review of Systems Review of Systems All systems reviewed & are unremarkable except as noted in HPI and below Exam Const: General: comfortable and no acute distress Eyes: Other: mildly icteric Resp: Effort & Inspection: normal respiratory effort Auscultation: rhonchi Other: slightly diminished. Cardio: Rate: regular rate Rhythm: regular rhythm GI: GI Palp: Yes Soft to palpation Auscultation: normal bowel sounds Neuro: Speech: normal speech Extrem: General: pedal edema on the left 1+ Other: Right AKA. Psych: Mental Status: mental status grossly normal Affect: normal affect DS: Data Data Completed and Pending Pending studies at discharge: Pending at discharge 11/17/24 15:03 Cytology [PTH] Routine Labs on day of discharge: Labs from last 24 hours 11/18/24 11/17/24 11/17/24 04:52 15:22 13:33 WBC 10.4 H RBC 3.31 L Hgb 11.7 L Hct 34.5 L MCV 104.2 H MCH 35.3 H MCHC 33.9 RDW 13.7 Plt Count 143 L MPV 10.5 H Immature Gran % (Auto) 0.5 Neut % (Auto) 64.6 Lymph % (Auto) 25.3 [place] % (Auto) 7.8 Eos % (Auto) 1.0 Baso % (Auto) 0.8 Lymph # (Auto) 2.63 [place] # (Auto) 0.8 H Eos # (Auto) 0.1 Baso # (Auto) 0.1 Abs Immat Gran (auto) 0.05 H Absolute Neuts (auto) 6.7 Absolute Nucleated RBC 0.000 Band Neutrophils % Nucleated RBC % 0.0 Platelet Estimate Anisocytosis Schistocytes PT INR APTT D-Dimer Sodium 128 L Potassium 3.7 Chloride 101 Carbon Dioxide 25 Anion Gap 2 L BUN 12 Creatinine 0.64 L Estim Creat Clear Calc 84 Estimated GFR > 60 Glucose 83 Calcium 7.4 L Iron 97 TIBC 167 L % Saturation 58 H Total Bilirubin 3.8 H Direct Bilirubin Indirect Bilirubin AST 84 H ALT 31 Alkaline Phosphatase 260 H Ammonia Lactate Dehydrogenase Troponin I NT-Pro-B Natriuret Pep Total Protein 5.0 L Albumin 2.5 L Lipase Urine Color Dark yellow Urine Appearance Clear Urine pH 6.0 Ur Specific [place] > 1.045 H Urine Protein Trace Urine Glucose (UA) Negative Urine Ketones Trace H Ur Blood (Man) Negative Urine Nitrate Positive H Urine Bilirubin 2+ H Urine Urobilinogen 2.0 H Add Ur Microanalysis Reviewed Leukocyte Esterase Rfl Trace H Urine RBC 0-2 Urine WBC 0-5 Ur Squamous Epith Cells None seen Urine Bacteria None seen Urine Casts 11-20 Urine Osmolality Pending Ur Random Sodium < 5 Urine Creatinine 170.6 Peritoneal Source Peritoneal fluid Peritoneal Color Yellow Peritoneal Appearance Hazy A Peritoneal RBC < 2000 Periton Nuc Cells 179 Periton Neutrophils 12 Periton Lymphocytes 20 Periton Mesothelial 5 Periton Macrophages 63 Peritoneal Tot Protein Pending Peritoneal Albumin Pending Peritoneal LDH Pending Peritoneal Glucose Pending Hepatitis A IgM Ab Negative Hep Bs Antigen Negative Hep B Core IgM Ab Negative Hepatitis C Ab Screen Negative Influenza A (RT-PCR) Influenza B (RT-PCR) RSV (RT-PCR) SARS-CoV-2 RNA (RT-PCR) 11/17/24 11/17/24 11/17/24 11:14 10:57 10:56 WBC 16.6 H RBC 3.85 L Hgb 13.9 L Hct 41.1 L MCV 106.8 H MCH 36.1 H MCHC 33.8 RDW 13.7 Plt Count 223 MPV 10.8 H Immature Gran % (Auto) 0.7 H Neut % (Auto) 73.0 Lymph % (Auto) 18.8 [place] % (Auto) 6.7 Eos % (Auto) 0.3 Baso % (Auto) 0.5 Lymph # (Auto) 3.11 [place] # (Auto) 1.1 H Eos # (Auto) 0.1 Baso # (Auto) 0.1 Abs Immat Gran (auto) 0.12 H Absolute Neuts (auto) 12.1 H Absolute Nucleated RBC 0.000 Band Neutrophils % Not Reportable Nucleated RBC % 0.0 Platelet Estimate Adequate Anisocytosis 1+ Schistocytes None seen PT 16.2 H INR 1.2 APTT 31.5 D-Dimer 3.76 H Sodium 127 L Potassium 3.7 Chloride 93 L Carbon Dioxide 25 Anion Gap 9 BUN 16 Creatinine 0.70 Estim Creat Clear Calc 78 Estimated GFR > 60 Glucose 135 H Calcium 8.1 L Iron TIBC % Saturation Total Bilirubin 4.1 H Direct Bilirubin 0.8 H Indirect Bilirubin 1.0 AST 112 H ALT 45 Alkaline Phosphatase 348 H Ammonia 23 Lactate Dehydrogenase 298 H Troponin I < 0.012 NT-Pro-B Natriuret Pep 438 H Total Protein 6.0 L Albumin 3.0 L Lipase 247 Urine Color Urine Appearance Urine pH Ur Specific [place] Urine Protein Urine Glucose (UA) Urine Ketones Ur Blood (Man) Urine Nitrate Urine Bilirubin Urine Urobilinogen Add Ur Microanalysis Leukocyte Esterase Rfl Urine RBC Urine WBC Ur Squamous Epith Cells Urine Bacteria Urine Casts Urine Osmolality Ur Random Sodium Urine Creatinine Peritoneal Source Peritoneal Color Peritoneal Appearance Peritoneal RBC Periton Nuc Cells Periton Neutrophils Periton Lymphocytes Periton Mesothelial Periton Macrophages Peritoneal Tot Protein Peritoneal Albumin Peritoneal LDH Peritoneal Glucose Hepatitis A IgM Ab Hep Bs Antigen Hep B Core IgM Ab Hepatitis C Ab Screen Influenza A (RT-PCR) Negative Influenza B (RT-PCR) Negative RSV (RT-PCR) Negative SARS-CoV-2 RNA (RT-PCR) Negative DS: Summary Hospital Course Reason for hospitalization: Abdominal bloating, pain, shortness of breath. Hospital Course: ER work up: CBC: WBC 16.6, Hgb 13.9, Hct 41.1, Plt 223. Coagulation: INR 1.2. Renal Function: Creatinine 0.64. Liver Function: Total Bilirubin 3.8, AST 84, ALT 31, Alkaline Phosphatase 260, Albumin 2.5. Hepatitis panel negative. Respiratory panel negative. BNP 438. d dimer 3.76. CTA chest/abdomen/pelvis showed: IMPRESSION: CHEST: 1. No pulmonary embolism. 2. Mediastinal lymphadenopathy. ABDOMEN/PELVIS: 1. Fat infiltration of liver cirrhosis. 2. Cholelithiasis. 3. Ascites 4. Thickened wall of the sigmoid colon. Colitis is possible. Clinical correlation and follow-up advised. 5. Bilateral fat containing inguinal hernias. 6. Atherosclerotic changes of the celiac and superior mesenteric arteries with mild to moderate narrowing. 7. Graft is seen in the area of the left iliac artery. An abdominal paracentesis was performed yesterday, yielding 2300 mL of clear ascitic fluid. Analysis of the fluid showed no PMN elevation, ruling out spontaneous bacterial peritonitis. GI consult completed and will follow patient as outpatient, they are formally referring patient to the [facility] Transplant Team. Repeat labs: WBC 10.4, AST 84, Alkaline phosphatase 260. Venous dopplers were negative. Status at Discharge Functional status at discharge: uses cane/walker (Uses crutches) Overall status at discharge: patient is progressing back to baseline Time Spent with Patient Time attestation: Total time spent providing and/or coordinating discharge services: Time spent: Greater than 30 minutes DS: Admitting Diagnosis Discharge Date 11/19/2024 Admitting Diagnosis Abdominal pain and bloating. DS: Discharge Diagnosis Discharge Diagnosis (1) Liver cirrhosis: Code(s): K74.60 - Unspecified cirrhosis of liver Status: Acute (2) Elevated liver enzymes: Code(s): R74.8 - Abnormal levels of other serum enzymes Status: Acute (3) Hyponatremia: Code(s): E87.1 - Hypo-osmolality and hyponatremia Status: Acute (4) Ascites: Qualifiers: Ascites type: due to alcoholic cirrhosis Qualified Code(s): K70.31 - Alcoholic cirrhosis of liver with ascites Code(s): R18.8 - Other ascites Status: Acute Discharge Plan Discharge Attending physician on discharge: Gabi Encarnacion Discharging Clinician: Marija Franklin Anticipated Discharge Date/Time: 11/18/24 14:00 Patient Disposition: Home Activity: may shower and as tolerated Diet: low sodium Discharge Instructions: Refrain from drinking alcohol. Hold Norvasc until you see primary, systolic blood pressure running 102-107 today. Check blood pressure daily and record. Take recordings to doctors appointment. If blood pressure >140/90 discuss with primary doctor. Also you are starting on Furosemide and Spironolactone to get fluid off of you and these may lower your blood pressure. Avoid sudden movements or getting up quickly. Follow low sodium diet and drink Ensure shake 2-3 daily if unable to get enough protein through diet. Follow diet recommendations and information that you received from the escrow representative. Report if you develop increased swelling in your abdomen with shortness of breath to your provider. Thank you for entrusting [facility] with your healthcare! Patient Instructions: Antibiotic Form, Cirrhosis of the Liver (DC), Abuse of Alcohol (DC), Low-Sodium Diet (GEN) Patient Language: Mozambican Stand Alone Forms: General Discharge Information Follow-up/Referrals: Kenji Rich MD [Physician] - 1 Week aZcarias Gutierrez DO [Primary Care Provider] - 1 Week Discharge Medications: New furosemide 40 mg Tablet 40 mg PO DAILY Qty: 14 0RF spironolactone [Aldactone] 50 mg Tablet 100 mg PO QAM Qty: 14 0RF Continued aspirin 325 mg tablet 325 mg PO DAILY omega-3 fatty acids [Fish Oil Concentrate] 1,000 mg capsule 1,000 mg PO DAILY multivitamin Tablet 1 tablet PO DAILY albuterol sulfate 90 mcg/actuation HFA aerosol inhaler See Rx Instructions .ROUTE .COMPLEX Qty: 8.5 1RF Dose Instruction: INHALE 1 PUFF BY MOUTH EVERY 4 HOURS NEEDED FOR SHORTNESS OF BREATH OR WHEEZING Rx Instructions: INHALE 1 PUFF BY MOUTH EVERY 4 HOURS NEEDED FOR SHORTNESS OF BREATH OR WHEEZING nebivolol 20 mg tablet 20 mg PO DAILY Qty: 90 1RF atorvastatin 20 mg tablet 20 mg PO DAILY Qty: 90 1RF esomeprazole magnesium 20 mg capsule,delayed release(DR/EC) See Rx Instructions .ROUTE .COMPLEX Qty: 90 1RF Dose Instruction: TAKE 1 CAPSULE BY MOUTH EVERY DAY Rx Instructions: TAKE 1 CAPSULE BY MOUTH EVERY DAY Discontinued amlodipine 10 mg tablet 10 mg PO DAILY Qty: 90 1RF Date of admission: 11/17/24 15:54 Primary Care Provider: Zacarias Gutierrez Admitting Provider: Nima Negrete Attending physician on admission: Nima Negrete Condition: Improved Hospitalist [facility] Advance Care Plan I have confirmed that the patient's Advanced Care Plan is present, code status is documented, or surrogate decision maker is listed in patient medical record.: Yes Medication Reconciliation I have utilized all available resources to obtain, update and review the patients current medications (includes all prescriptions, OTC, herbals, cannabis, and nutritional supplements).: Yes Heart Failure (Exclusion) Patient has history of Heart Transplant or Left Ventricular Assistive Device?: No IF YES, STOP HERE Heart Failure (Qualifier) Patient has current or prior documentation of LVEF less than or equal to 40%, or mod/servere depressed LVSF?: No IF NO, STOP HERE
[2024-11-18 12:46] VITALS: BP 106/68
[2024-11-18 15:03] VITALS: BP 102/60; PULSE 73; RESP 18; TEMP 36.6; O2SAT 94
--- NOTE | 2024-11-18 16:49 | P.PNIM_ITS ---
Subjective Date/time seen: 11/18/24 16:49 Review of Systems Review of Systems: All systems reviewed & are unremarkable except as noted in HPI and below Objective Data Vital Signs Vital Signs: Vital Signs - 24 hr 11/17/24 17:08 11/17/24 17:22 11/17/24 20:25 Temperature 96.5 F L 98.3 F Pulse Rate 64 64 64 Respiratory Rate 18 18 17 Blood Pressure 106/55 L 107/53 L Pulse Oximetry 98 98 95 Oxygen Delivery Room Air 11/18/24 05:49 11/18/24 09:32 11/18/24 09:32 Temperature 97.3 F L Pulse Rate 70 Respiratory Rate 18 Blood Pressure 100/52 L 106/50 L Pulse Oximetry 95 Oxygen Delivery Room Air 11/18/24 12:46 11/18/24 15:03 Temperature 97.8 F Pulse Rate 73 Respiratory Rate 18 Blood Pressure 106/68 102/60 Pulse Oximetry 94 Oxygen Delivery Intake/Output Intake/Output: Intake & Output 11/15/24 11/16/24 11/17/24 11/18/24 23:59 23:59 23:59 23:59 Intake Total 500 540 Output Total 2700 850 Balance -2200 -310 Meds/Results Medications: Active Medications Generic Name Dose Route Start Last Admin Trade Name Freq PRN Reason Stop Dose Admin Acetaminophen 650 mg 11/17/24 15:53 Acetaminophen 325 Mg Tablet PO Q4H PRN Mild Pain (1-3) or Fever Albuterol 1 puff 11/17/24 00:00 Albuterol Sulfate (*Sp) Aerosol 1 Puff INHALATION Q4HRT PRN SHORTNESS OF BREATH/WHEEZING Amlodipine Besylate 10 mg 11/18/24 09:00 11/18/24 09:25 Amlodipine Besylate 10 Mg Tablet PO Not Given DAILY YOSHI Aspirin 325 mg 11/18/24 08:00 11/18/24 09:14 Aspirin 325 Mg Tablet PO 325 mg DAILY@0800 YOSHI Administration Atorvastatin Calcium 20 mg 11/18/24 09:00 11/18/24 09:16 Atorvastatin 20 Mg Tablet PO 20 mg DAILY YOSHI Administration Fish Oil 1 gm 11/18/24 09:00 11/18/24 09:16 Alexis 3 Polyunsat Fatty Acids 1 Gm Cap PO 1 gm DAILY YOSHI Administration Folic Acid 1 mg 11/18/24 09:00 11/18/24 09:16 Folic Acid 1 Mg Tablet PO 1 mg DAILY YOSHI Administration Furosemide 40 mg 11/18/24 09:00 11/18/24 09:27 Furosemide 40 Mg Tablet PO 40 mg DAILY YOSHI Administration Albumin Human 100 mls @ 60 mls/hr 11/18/24 00:00 11/18/24 12:44 Albutein IVPB 11/18/24 19:39 60 mls/hr Q6HR YOSHI Administration Multivitamins Therapeutic 1 tablet 11/18/24 09:00 11/18/24 09:16 Multivitamins Therapeutic Tab (*Bkc) PO 1 tablet DAILY YOSHI Administration Nebivolol 20 mg 11/18/24 09:00 11/18/24 12:47 Nebivolol Hcl 5 Mg Tablet PO Not Given DAILY YOSHI Ondansetron HCl 4 mg 11/17/24 15:53 Ondansetron Inj 4 Mg/2 Ml Vial IV PUSH Q4H PRN Nausea Pantoprazole Sodium 40 mg 11/18/24 09:00 11/18/24 09:16 Pantoprazole 40 Mg Tablet PO 40 mg QAM YOSHI Administration Spironolactone 100 mg 11/18/24 09:00 11/18/24 09:27 Spironolactone 50 Mg Tablet PO 100 mg QAM YOSHI Administration Thiamine HCl 100 mg 11/18/24 09:00 11/18/24 09:16 Thiamine Hcl 100 Mg Tablet PO 100 mg QAM YOSHI Administration Radiology Results: ITS Impressions Chest/Abdomen/Pelvis CTA 11/17/24 12:49 IMPRESSION: CHEST: 1. No pulmonary embolism. 2. Mediastinal lymphadenopathy. ABDOMEN/PELVIS: 1. Fat infiltration of liver cirrhosis. 2. Cholelithiasis. 3. Ascites 4. Thickened wall of the sigmoid colon. Colitis is possible. Clinical correlation and follow-up advised. 5. Bilateral fat containing inguinal hernias. 6. Atherosclerotic changes of the celiac and superior mesenteric arteries with mild to moderate narrowing. 7. Graft is seen in the area of the left iliac artery. Paracentesis Ultrasound 11/17/24 16:15 IMPRESSION: 1. Successful ultrasound-guided paracentesis yielding 2300 mL of clear yellow fluid. Labs Labs: Laboratory Results - last 24 hr 11/17/24 11/17/24 11/18/24 10:56 15:22 04:52 WBC 10.4 H RBC 3.31 L Hgb 11.7 L Hct 34.5 L MCV 104.2 H MCH 35.3 H MCHC 33.9 RDW 13.7 Plt Count 143 L MPV 10.5 H Immature Gran % (Auto) 0.5 Neut % (Auto) 64.6 Lymph % (Auto) 25.3 [place] % (Auto) 7.8 Eos % (Auto) 1.0 Baso % (Auto) 0.8 Lymph # (Auto) 2.63 [place] # (Auto) 0.8 H Eos # (Auto) 0.1 Baso # (Auto) 0.1 Abs Immat Gran (auto) 0.05 H Absolute Neuts (auto) 6.7 Absolute Nucleated RBC 0.000 Nucleated RBC % 0.0 Sodium 128 L Potassium 3.7 Chloride 101 Carbon Dioxide 25 Anion Gap 2 L BUN 12 Creatinine 0.64 L Estim Creat Clear Calc 84 Estimated GFR > 60 Glucose 83 Calcium 7.4 L Iron 97 TIBC 167 L % Saturation 58 H Total Bilirubin 3.8 H AST 84 H ALT 31 Alkaline Phosphatase 260 H Lactate Dehydrogenase 298 H Total Protein 5.0 L Albumin 2.5 L Peritoneal Source Peritoneal fluid Peritoneal Color Yellow Peritoneal Appearance Hazy A Peritoneal RBC < 2000 Periton Nuc Cells 179 Periton Neutrophils 12 Periton Lymphocytes 20 Periton Mesothelial 5 Periton Macrophages 63 Hepatitis A IgM Ab Negative Hep Bs Antigen Negative Hep B Core IgM Ab Negative Hepatitis C Ab Screen Negative
[2024-11-19 14:58] LABS: Osmolality, Urine 531 mOsm/kg (50-1200)
[2024-11-20 19:39] LABS: LDH Peritoneal Fluid 32 U/L (<63)
[2024-11-27 21:53] LABS: Albumin Peritoneal Fluid 0.5 g/dL; Glucose Peritoneal Fluid 144 mg/dL; Total Protein Peritoneal Fluid <3.0 g/dL
== END 2024-11-18 19:52 | disposition home or self-care (01) ==
LOC: ANHED 10:51 → ANH2MED 11-18 13:23
PROVIDERS: Internal Medicine Gastroenterology; Student in an Organized Health Care Education/Training Program; Admitting Provider Internal Medicine; Emergency Provider Student in an Organized Health Care Education/Training Program; PCP Internal Medicine; Visit Provider Family Medicine
DX: K70.31 Alcoholic cirrhosis of liver with ascites (principal); F10.90 Alcohol use, unspecified, uncomplicated; D72.829 Elevated white blood cell count, unspecified; E87.1 Hypo-osmolality and hyponatremia; E88.09 Other disorders of plasma-protein metabolism, not elsewhere classified; R74.01 Elevation of levels of liver transaminase levels; R59.0 Localized enlarged lymph nodes; K70.0 Alcoholic fatty liver; K80.20 Calculus of gallbladder without cholecystitis without obstruction; K59.39 Other megacolon; K40.20 Bilateral inguinal hernia, without obstruction or gangrene, not specified as recurrent; I10 Essential (primary) hypertension; E78.5 Hyperlipidemia, unspecified; K21.9 Gastro-esophageal reflux disease without esophagitis; F17.210 Nicotine dependence, cigarettes, uncomplicated; R79.1 Abnormal coagulation profile; I73.9 Peripheral vascular disease, unspecified; I65.22 Occlusion and stenosis of left carotid artery; G89.29 Other chronic pain; M17.12 Unilateral primary osteoarthritis, left knee; F41.8 Other specified anxiety disorders; Z20.822 Contact with and (suspected) exposure to COVID-19; Z79.51 Long term (current) use of inhaled steroids; Z79.82 Long term (current) use of aspirin; Z79.899 Other long term (current) drug therapy; Z86.0100 Personal history of colon polyps, unspecified; Z86.14 Personal history of Methicillin resistant Staphylococcus aureus infection; Z89.611 Acquired absence of right leg above knee; Z98.890 Other specified postprocedural states
CPT/HCPCS: 36415; 49083; 71275; 74177; 80053; 80074; 81001; 82042; 82140; 82248; 82570; 82945; 83540; 83550; 83615; 83690; 83880; 83935; 84157; 84300; 84484; 85025; 85380; 85610; 85730; 87070; 87075; 87086; 87205; 87637; 88108; 88305; 88342; 89051; 93005; 93970; 94640; 96361; 96365; 96366; 96375; 99285; A9270; G0378; J7040; P9047; Q9967

== ENCOUNTER 2024-11-30 15:28 | Outpatient (CLI) | payer MEDICARE, SELFPAY ==
--- OUTSIDE RECORDS SUMMARY | 2024-11-30 15:34 | XMS_ITS | Encounter Summary ---
Author Organization [facility] Healthcare Address [address] [place] [address] Care Team Providers Care Automatic Pinsetter Adjuster Name Role Phone Zacarias Gutierrez DO Primary Care Provider [phone] Renny Page MD PhD Unavailable [phone] Encounter Details Date Type Department Care Team (Late st Contact Info) Description 05/27/2023 Telephone [facility] [place] [facility] [address] [facility] [address] [place] [address] Yi Porter MD [address] [facility] [address] [place] [address] Social History Tobacco Use Types Packs/Day Years [...] on file Legal Sex Male 2:20 AM FURNITURE ARRANGER Gender Identity Male 07/11/2021 8:22 AM FURNITURE ARRANGER Sexual Orientation Straight 07/11/2021 8: 22 AM FURNITURE ARRANGER documented as of this encounter Functional Status [...] on filedocumented in this encounter Care Teams Automatic Pinsetter Adjuster Relationship Specialty Start Date End Date Zacarias Gutierrez DO PCP - General 12/05/11 Renny Page MD PhD Surgeon Vascular Surgery 12/18/18 documented as of this encounter
--- OUTSIDE RECORDS SUMMARY | 2024-11-30 15:34 | XMS_ITS | Clinical Summary ---
Author Organization [facility] Address [address] [address] Care Team Providers Care Pipe Installer Name Role Phone Zacarias Gutierrez DO Primary Care Provider +- [phone] Renny Page MD PhD Unavailable [phone] Allergies Active Allergy Reactions Criticality Noted Date Comments No Known Allergies Other (See comments) Low Reaction: Medications amLODIPine (NORVASC) 10 mg tabletIndication s:hypertension Take 1 tablet (10 mg total) by mouth every morning 9 Active atorvastatin (LIPITOR) 20 mg tabletIndication s:hyperlipidemia Take 1 tablet (20 mg total) by mouth every morning 9 Active multivitamin tabletIndication s:Vitamin Deficiency Prevention Take 1 tablet by mouth every morning 7 Active BYSTOLIC 20 mg tabletIndication s:hypertension Take 1 tablet (20 mg total) by mouth every morning 9 Active CIALIS 20 mg tabletIndication s:Erectile Dysfunction Take 1 tablet (20 mg total) by mouth daily as needed 9 Active omega-3 fatty acids-fish oil 300-1,000 mg capsuleIndicatio ns:supplement Take 2 capsules (2 g total) by [...] times a day 90 tablet 1 5 Active lidocaine (LIDODERM) 5 % Place 1 patch on the skin daily for 12 hours Remove & discard patch within 12 hours or as directed by . 30 patch 3 5 Active Active Problems Problem Noted Date Diagnosed [...] - 11/03/2024 11:59 PM CDT Hospital Encounter [facility]) [address] [place] [address] Discharge Disposition: Discharge to home or self care 10/23/2024 Telephone [facility] [place] [facility] [address] [place] [address] Yi Porter MD Lidocaine patch PA approved 07/01/24-06/30/25 10/22/2024 11:45 AM CDT - 10/22/2024 11:59 PM CDT Hospital Encounter [facility] [place] [facility] [address] [place] [address] Yi Porter MD Chronic low back pain [...] dysfunction of non-organic origin - (Added by ISABELLE Conv) Personal history of other di seases of the circulatory system History of hypertension - (A dded by ISABELLE Conv) Personal history of other di seases [...] on file Legal Sex Male 2:20 AM DIRECTOR OF PEDIATRIC REHABILITATION Gender Identity Male 07/11/2021 8:22 AM DIRECTOR OF PEDIATRIC REHABILITATION Sexual Orientation Straight 07/11/2021 8: 22 AM DIRECTOR OF PEDIATRIC REHABILITATION Obstetrics History Last Filed Vital Signs Vital [...] No change(09/30 12:01 PM CDT) No Rea Hiutron RN Note: Problem: Chronic Pain Goals: 1. Minimize further functional decline 2. Maximize quality of life 3. Control pain Strategies: - Activity/exercise program recommendation - Conservative stepwise pain medicine strategy with multi-disciplinary approach - Recommend healthy lifestyle strategies and compensatory methods as needed Medical Devices Implanted Type Area Shark Biologist Device Identifier Shelf Expiration Date Model / Serial / Lot Therasport Physical Therapy Vg-[id number] Vascu-Guard 8x.8cm Peripheral Patch Vascular Bovine Pericardium - [id number] - [id number] Implanted:Qty: 1 on 12/17/2018 by Renny Page MD PhD at [facility] Graft Right: Neck Monsivais [employer] Henok 07/23/2023 VG-0108N / [id number] / [id number] Spr [employer] System Sprint Percutaneous Electrical Nerve Stimulation 2776-5825 - [id number] Implanted:Qty: 1 on 07/10/2022 by Yi Porter MD at [facility] Stimulator Bilatera l: Back SPR [employer]ERAPEUTICS 05/01/2023 [id number] / / [id number] 22 Procedures Procedure Name Priority Date/Time Associated [...] Outside Reference (11/03/2024 2:48 PM CDT) Impressions RAD_PACS_[facility] - 11/03/2024 2:48 PM CDT These images are for Reference purposes only and have not been reviewed by [facility] Radiology. There will be no report generated by a [facility] Radiologist. Narrative RAD_PACS_[facility] - 11/03/2024 2:48 PM [...] in the abdomen or pelvis. 2. Patent zsotc-ptez-xzivlza bypass. 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 The [place] left common iliac artery is occluded with reconstitution of the [place] left internal and external iliac via collateral [...] and without evidence of significant stenosis. The [place] left common iliac artery is occluded with reconstitution of the [place] left internal and external iliac via collateral [...] in the abdomen or pelvis. 2. Patent eesmv-wlzr-izjerbu bypass. 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 at the origin of the [place] internal/external iliac arteries on the left and [...] Most Recently Relevant to Health Maintenance Insurance [facility] MEDICARE [facility] Address: [facility] [address] [place] [address] [facility] MEDICARE AETNA MEDICARE Advance Directives For more information, please contact: [phone] Documents on File Type Date Recorded Patient Gas Station Attendant Expl anation ADVANCE DIRECTIVE 12/22/2018 1:17 PM ED MCCONNELL * Full Code (Latest Code Status on File) Date Activated Date Inactivated Comments 12/17/2018 7:16 PM 12/18/2018 4:46 PM Care Teams Pipe Installer Relationship Specialty Start Date End Date Zacarias Gutierrez, DO PCP - General 12/05/11 Renny Page MD PhD Surgeon Vascular Surgery 12/18/18
--- OUTSIDE RECORDS SUMMARY | 2024-11-30 15:34 | XMS_ITS | CONTINUITY OF CARE DOCUMENT ---
Author Name angela miller Address Unknown Organization [facility] Address [id number] [place] [address] [address] [place] [address] Phone [phone] Care Team Providers Care Blueprint Machine Operator Name Role Phone angela miller Unavailable Unavailable INSURANCE PROVIDERS Payer name Policy type / Coverage type Jackson red constitution party ID [facility] [id number]
--- OUTSIDE RECORDS SUMMARY | 2024-11-30 15:34 | XMS_ITS | Continuity of Care Document ---
Author Organization [facility] Address [address] [facility] [address] [place] [address] Phone Care Team Providers Care Certified Nurse Practitioner Name Role Phone Dutta OD, Shade Unavailable Unavailable Advance Directives Directive Yes / No Effective Date File Name No Information Encounters Encounter Description Practice Location Reason(s) For Visit Diagnoses Date Provider Providers Copied on Encounter [facility], [address], [place], [place], [address], [place] tel:[phone] [facility] No Information 2-[address] 6 Dutta OD Sh[place]. [address] , [address], [place], [address], [place]. tel:[phone] Family History Family Member Type Diagnosis Age At Onset No Information Payers Payer name Insurance type Covered green party ID Authoriza tion(s) [employer] SOI CI [id number] Social History Type Description Quantity Date Captured [...]
--- OUTSIDE RECORDS SUMMARY | 2024-11-30 15:34 | XMS_ITS | Referral Summary ---
Author Organization [facility] Address [address] [place] [address] Care Team Providers Care Occupational Therapist Home Based Name Role Phone Zacarias Gutierrez DO Primary Care Provider +- [phone] Renny Page MD PhD Unavailable [phone] Encounters Date Type Department Care Team Description 11/03/2024 2:48 PM CDT - 11/03/2024 11:59 PM CDT Hospital Encounter [facility] ([facility]) [address] [place] [address] Discharge Disposition: Discharge to home or self care 10/23/2024 Telephone [facility] [place] [facility] [address] [place] [address] for Advanced Medicine [address] [place] [address] Yi Porter MD Lidocaine patch PA approved 07/01/24-06/30/25 10/22/2024 11:45 AM CDT - 10/22/2024 11:59 PM CDT Hospital Encounter [facility] [place] [facility] [address] [place] [address] for Advanced Medicine [address] [place] [address] Yi Porter MD Chronic low back pain [...] money to buy more. Never true 09/13/19 Within the past 12 months, t he food you bought just didn't last and you didn't have money to get more. Never true 09/12/2022 Sex and Gender Information Value Date Recorded Sex Assigned at Not on file Legal Sex Male 2:20 AM SEX CRIMES DETECTIVE Gender Identity Male 07/11/2021 8:22 AM SEX CRIMES DETECTIVE Sexual Orientation Straight 07/11/2021 8: 22 AM SEX CRIMES DETECTIVE Last Filed Vital Signs Vital Sign Reading [...] as needed Medical Devices Implanted Type Area Showplace Manager Device Identifier Shelf Expiration Date Model / Serial / Lot Gini [employer] Jony Vg-[id number] Vascu-Guard 8x.8cm Peripheral Patch Vascular Bovine Pericardium - [id number] - [id number] Implanted:Qty: 1 on 12/17/2018 by Renny Page MD PhD at [facility] Graft Right: Neck Monsivais [employer] 07/23/2023 VG-0108N / [id number] / [id number] Spr Therapeutics System Sprint Percutaneous Electrical Nerve Stimulation 5488-5116 - [id number] Implanted:Qty: 1 on 07/10/2022 by Yi Porter MD at [facility] Stimulator Bilatera l: Back [employer]ER[employer] 05/01/2023 [id number] / / [id number] 22 Procedures Procedure Name Priority Date/Time Associated [...] Outside Reference (11/03/2024 2:48 PM CDT) Impressions RAD_PACS[facility] - 11/03/2024 2:48 PM CDT These images are for Reference purposes only and have not been reviewed by [facility] Radiology. There will be no report generated by a [facility] Radiologist. Narrative [facility] - 11/03/2024 2:48 PM CDT EXAMINATION: Images [...] in the abdomen or pelvis. 2. Patent pjrcg-glll-egulfwi bypass. 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 The [place] left common iliac artery is occluded with reconstitution of the [place] left internal and external iliac via collateral [...] and without evidence of significant stenosis. The [place] left common iliac artery is occluded with reconstitution of the [place] left internal and external iliac via collateral [...] in the abdomen or pelvis. 2. Patent pyzmv-wfph-ejufsvi bypass. 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 3. Morphologic liver changes suggesting underlying chronic liver disease. Electronically signed by: Justice Mays M.D. Renny Page MD PhD IMG CT PROCEDURES Ruchi l Result * COLONOSCOPY REPORT (09/18/2017) Anatomical Region Laterality Modality Other us Provider Scanning GI PROCEDURE ORDERABLES Final Result from Last 3 Months or Most Recently Relevant to Health Maintenance Insurance AETNA MEDICARE [employer] [facility] MEDICARE AETNA MEDICARE Advance Directives For more information, please contact: [phone] Documents on File Type Date Recorded Patient Superintendent Service Expl anation ADVANCE DIRECTIVE 12/22/2018 1:17 PM LIVIN G WILL * Full Code (Latest Code Status on File) Date Activated Date Inactivated Comments 12/17/2018 7:16 PM 12/18/2018 4:46 PM Care Teams Occupational Therapist Home Based Relationship Specialty Start Date End Date Zacarias Gutierrez DO PCP - General 12/05/11 Renny Page MD PhD Surgeon Vascular Surgery 12/18/18
--- OUTSIDE RECORDS SUMMARY | 2024-11-30 15:34 | XMS_ITS | Clinical Summary ---
Author Organization [facility] Address [address] [place] [address] Care Team Providers Care Salon Designer Name Role Phone Zacarias Gutierrez DO Primary Care Provider [phone] Source Comments [facility],non-owned Affiliates and Associated Physician Practices is amultiple site organization consisting of ambulatory clinics and hospital sitesin [place], [place], [place] and [place]. This disclosure is being madepursuant to the Care Everywhere program and may not contain all information available regarding this patient. Last updated 18.[facility] Allergies No known active allergies Medications * [...] on file Legal Sex Male 5:27 PM CHIEF INFORMATION SECURITY OFFICER Gender Identity Not on file Sexual Orientation Not on file Last Filed Vital Signs Vital Sign Reading Time Taken Comments Blood Pressure 152/83 07/08/2017 1:33 PM CHIEF INFORMATION SECURITY OFFICER Pulse 103 07/08/2017 1:33 PM CHIEF INFORMATION SECURITY OFFICER Temperature 36.8 C (98.2 F) 02/26/2017 12:04 PM CDT Respiratory Rate 18 02/26/2017 8:30 PM CDT Oxygen Saturation 100% 07/08/2017 1:33 PM CHIEF INFORMATION SECURITY OFFICER Inhaled Oxygen Concentration - - Weight 76 kg (167 lb 9.6 oz) 07/08/2017 1:33 PM CHIEF INFORMATION SECURITY OFFICER Height 165.1 cm (5' 5) 07/08/2017 1:33 PM CHIEF INFORMATION SECURITY OFFICER Body Mass Index 27.89 07/08/2017 1:33 PM CHIEF INFORMATION SECURITY OFFICER Plan of Treatment Health Maintenance Due Date [...] 7 - 26 mg/dL 02/13/2018 3:30 PM [facility] Creatinine 0.9 0.6 - 1.2 mg/dL 02/13/2018 3:30 PM [facility] Sodium 139 136 - 145 mmol/L 02/13/2018 3:30 PM [facility] Potassium 4.1 3.5 - 4.5 mmol/L 02/13/2018 3:30 PM [facility] Chloride 104 98 - 107 mmol/L 02/13/2018 3:30 PM [facility] CO2 28 22 - 29 mmol/L 02/13/2018 3:30 PM [facility] Glucose 99 70 - 115 mg/dL 02/13/2018 3:30 PM [facility] Calcium 9.7 8.4 - 10.2 mg/dL 02/13/2018 3:30 PM [facility] Protein Total 7.1 6.0 - 8.3 g/dL 02/13/2018 3:30 PM [facility] Albumin 3.7 3.4 - 5.0 g/dL 02/13/2018 3:30 PM [facility] Bilirubin Total 0.3 0.2 - 1.2 mg/dL 02/13/2018 3:30 PM [facility] Alkaline Phosphatase 136 40 - 150 Units/L 02/13/2018 3:30 PM [facility] ALT 20 0 - 55 Units/L 02/13/2018 3:30 PM [facility] AST 22 5 - 34 Units/L 02/13/2018 3:30 PM [facility] Anion Gap 11 8 - 18 02/13/2018 3:30 PM [facility] BUN/Creatinine Ratio 13 7 - 23 02/13/2018 3:30 PM [facility] Osmolality Calculated 288 270 - 300 mOsm/kg 02/13/2018 3:30 PM [facility] Albumin/Globulin Ratio 1.1 1.1 - 2.3 02/13/2018 3:30 PM [facility] eGFR >60 >60 mL/min/1.7 3 m2 02/13/2018 3:30 PM [facility] Blood BLOOD SPECIMEN / Unknown Lab Venipuncture / Unknown 02/13/2018 2:44 PM CDT 02/13/2018 3:05 PM CDT us Justino Bateman MD LAB - CHEMISTRY ORDERABLES Ruchi l Result [address] [phone] * HEPATITIS C ANTIBODY (01/27/2017 8:29 AM CDT) Hepatitis C Antibody Non-react [facility] Comment: Hepatitis C Antibody screen indicates no [...] LAB - CHEMISTRY ORDERA BLES Final Result [facility] [address] [place] [address], [facility] [phone] from Last 3 Months or Most Recently Relevant to Health Maintenance Insurance HE[employer]LINK HE[employer]LINK Care Teams Salon Designer Relationship Specialty Start Date End Date Zacarias Gutierrez DO PCP - General 02/19/17
[2024-11-30 20:26] LABS: Alanine Aminotransferase 36 U/L (6-50); Albumin Level 3.3 g/dL (3.5-5.1); Alkaline Phosphatase 199 U/L (38-126); Anion Gap 8 mmol/L (4-12); Aspartate Amino Transferase 110 U/L (17-59); Bilirubin,Total 1.9 mg/dL (0.2-1.3); Blood Urea Nitrogen 17 mg/dL (9-20); Calcium 8.7 mg/dL (8.4-10.2); Carbon Dioxide 31 mmol/L (22-30); Chloride 96 mmol/L (98-107); Estimated Glomerular Filt Rate > 60; Glucose 103 mg/dL (65-110); Potassium 4.1 mmol/L (3.4-5.0); Sodium 135 mmol/L (137-145)
== END 2024-11-30 15:29 | disposition home or self-care (01) ==
LOC: ANHGOSHLAB 15:29
PROVIDERS: PCP Internal Medicine; Visit Provider Internal Medicine
DX: K70.10 Alcoholic hepatitis without ascites (principal); K74.60 Unspecified cirrhosis of liver; R79.0 Abnormal level of blood mineral; R74.8 Abnormal levels of other serum enzymes
CPT/HCPCS: 36415; 80053; 82728

== ENCOUNTER 2024-12-01 12:55 | Outpatient (CLI) | payer MEDICARE, SELFPAY ==
--- OUTSIDE RECORDS SUMMARY | 2024-12-01 15:04 | XMS_ITS | Continuity of Care Document ---
Author Organization [facility] Address [address] [facility] [address] [place] [address] Phone Care Team Providers Care Finishing Department Supervisor Name Role Phone Dutta OD, Shade Unavailable Unavailable Advance Directives Directive Yes / No Effective Date File Name No Information Encounters Encounter Description Practice Location Reason(s) For Visit Diagnoses Date Provider Providers Copied on Encounter [facility], [address], [place], [place], [id number], [place] tel:[phone] [facility] No Information 2-[address] Dutta OD [place]. [address], [place], [address], [place]. tel:[phone] Family History Family Member Type Diagnosis Age At Onset No Information Payers Payer name Insurance type Covered constitution party ID Authoriza tion(s) [employer] SOI CI [id number] Social History Type Description Quantity Date Captured [...]
--- OUTSIDE RECORDS SUMMARY | 2024-12-01 15:05 | XMS_ITS | CONTINUITY OF CARE DOCUMENT ---
Author Name angela miller Address Unknown Organization [facility] Address [address] [place] [address] [address] [place] [address] Phone [phone] Care Team Providers Care Cleaners Name Role Phone angela miller Unavailable Unavailable INSURANCE PROVIDERS Payer name Policy type / Coverage type Due [place] red alliance party ID [facility] [id number]
--- OUTSIDE RECORDS SUMMARY | 2024-12-01 15:05 | XMS_ITS | Clinical Summary ---
Author Organization [facility] Address [address] [address] Care Team Providers Care Angio Technologist Name Role Phone Zacarias Gutierrez DO Primary Care Provider +- [phone] Renny Page MD PhD Unavailable [phone] Allergies Active Allergy Reactions Criticality Noted Date [...] - 11/03/2024 11:59 PM CDT Hospital Encounter [facility] ([facility]) [address] [place] [address] Discharge Disposition: Discharge to home or self care 10/23/2024 Telephone [facility] [place] [facility] [address] [place] [address] Yi Porter MD Lidocaine patch PA approved 07/01/24-06/30/25 10/22/2024 11:45 AM CDT - 10/22/2024 11:59 PM CDT Hospital Encounter [facility] [place] [facility] [address] [place] [address] Yi Porter MD Chronic low back pain [...] on file Legal Sex Male 2:20 AM SUPERVISOR PIPELINE Gender Identity Male 07/11/2021 8:22 AM SUPERVISOR PIPELINE Sexual Orientation Straight 07/11/2021 8: 22 AM SUPERVISOR PIPELINE Obstetrics History Last Filed Vital Signs Vital [...] as needed Medical Devices Implanted Type Area Hand I Cutter Device Identifier Shelf Expiration Date Model / Serial / Lot Adomik Vg-0108n Vascu-Guard 8x.8cm Peripheral Patch Vascular Bovine Pericardium - [id number] - [id number] Implanted:Qty: 1 on 12/17/2018 by Renny Page MD PhD at [facility] Graft Right: Neck Monsivais [employer]ok 07/23/2023 VG-0108N / [id number] / [id number] Spr [employer] System Sprint Percutaneous Electrical Nerve Stimulation 3261-4585 - [id number] Implanted:Qty: 1 on 07/10/2022 by Yi Porter MD at [facility] Stimulator Bilatera l: Back [employer] 05/01/2023 [id number] / / [id number] 22 Procedures Procedure Name Priority Date/Time Associated [...] only and have not been reviewed by [facility] Radiology. There will be no report generated by a [facility] Radiologist. Narrative RAD_PACS_[facility] - 11/03/2024 [...] in the abdomen or pelvis. 2. Patent slddj-jduc-qaekqze bypass. 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 The [place] left common iliac artery is occluded with reconstitution of the [place] left internal and external iliac via collateral [...] and without evidence of significant stenosis. The [place] left common iliac artery is occluded with reconstitution of the [place] left internal and external iliac via collateral [...] in the abdomen or pelvis. 2. Patent knydy-hsgz-nercidy bypass. 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 at the origin of the [place] internal/external iliac arteries on the left and [...] Most Recently Relevant to Health Maintenance Insurance [facility] MEDICARE [facility] MEDICARE AETNA MEDICARE Advance Directives For more information, please contact: [phone] Documents on File Type Date Recorded Patient Portfolio Accountant Expl anation ADVANCE DIRECTIVE 12/22/2018 1:17 PM ED MCCONNELL * Full Code (Latest Code Status on File) Date Activated Date Inactivated Comments 12/17/2018 7:16 PM 12/18/2018 4:46 PM Care Teams Angio Technologist Relationship Specialty Start Date End Date Zacarias Gutierrez, DO PCP - General 12/05/11 Renny Page MD PhD Surgeon Vascular Surgery 12/18/18
--- OUTSIDE RECORDS SUMMARY | 2024-12-01 15:05 | XMS_ITS | Referral Summary ---
Author Organization [facility] Address [address] [place] [address] Care Team Providers Care Olericulturist Name Role Phone Zacarias Gutierrez DO Primary Care Provider [phone] Renny Page MD PhD Unavailable [phone] Encounters Date Type Department Care Team Description 11/03/2024 2:48 PM CDT - 11/03/2024 11:59 PM CDT Hospital Encounter [facility] [address] [place] [address] Discharge Disposition: Discharge to home or self care 10/23/2024 Telephone [facility] [place] [facility] [address] [place] [address] for Advanced Medicine [address] [place] [address] Yi Porter MD Lidocaine patch PA approved 07/01/24-06/30/25 10/22/2024 11:45 AM CDT - 10/22/2024 11:59 PM CDT Hospital Encounter [facility] [place] [facility] [address] [place] [address] for Advanced Medicine [address] [place] [address] Yi Porter MD Chronic low back pain [...] on file Legal Sex Male 2:20 AM RECOATING MACHINE OPERATOR Gender Identity Male 07/11/2021 8:22 AM RECOATING MACHINE OPERATOR Sexual Orientation Straight 07/11/2021 8: 22 AM RECOATING MACHINE OPERATOR Last Filed Vital Signs Vital Sign [...] as needed Medical Devices Implanted Type Area Certified Tower Climber Device Identifier Shelf Expiration Date Model / Serial / Lot [employer] [id number] Vascu-Guard 8x.8cm Peripheral Patch Vascular Bovine Pericardium - [id number] - [id number] Implanted:Qty: 1 on 12/17/2018 by Renny Page MD PhD at [facility] Graft Right: Neck [employer] 07/23/2023 [id number] / [id number] / [id number] [employer] System Sprint Percutaneous Electrical Nerve Stimulation [id number] - [id number] Implanted:Qty: 1 on 07/10/2022 by Yi Porter MD at [facility] Advanced [facility] Stimulator Bilatera l: Back [employer] 05/01/2023 [id number] / / [id number] Procedures Procedure Name Priority Date/Time Associated [...] only and have not been reviewed by [facility] Radiology. There will be no report generated by a [facility] Radiologist. Narrative RAD_[facility] - 11/03/2024 2:48 PM CDT EXAMINATION: Images [...] in the abdomen or pelvis. 2. Patent emxgj-jwav-hasaesc bypass. 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 The ass[place]ibo[place] sioux left common iliac artery is occluded with reconstitution of the assinibo[place] sioux left internal and external iliac via collateral [...] and without evidence of significant stenosis. The ass[place] sioux left common iliac artery is occluded with reconstitution of the ass[place] sioux left internal and external iliac via collateral [...] in the abdomen or pelvis. 2. Patent oesbi-mnyh-auktkal bypass. 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 at the origin of the assinibo[place] and sioux internal/external iliac arteries on the left and [...] Relevant to Health Maintenance Insurance A[employer] MEDICARE [employer] [facility] MEDICARE AETNA MEDICARE Advance Directives For more information, please contact: [phone] Documents on File Type Date Recorded Patient Health Outcomes Liaison Expl anation ADVANCE DIRECTIVE 12/22/2018 1:17 PM LIVIN G WILL * Full Code (Latest Code Status on File) Date Activated Date Inactivated Comments 12/17/2018 7:16 PM 12/18/2018 4:46 PM Care Teams Olericulturist Relationship Specialty Start Date End Date Zacarias Gutierrez DO PCP - General 12/05/11 Renny Page MD PhD Surgeon Vascular Surgery 12/18/18
--- OUTSIDE RECORDS SUMMARY | 2024-12-01 15:05 | XMS_ITS | Encounter Summary ---
Author Organization [facility] Address [address] [place] [address] Care Team Providers Care Entry Level Accountant Name Role Phone Zacarias Gutierrez DO Primary Care Provider [phone]- [phone] Renny Page MD PhD Unavailable [phone] Encounter Details Date Type Department Care Team (Late st Contact Info) Description 05/27/2023 Telephone [facility] the [place] [facility] [address] [facility] [address] [place] [address] Yi Porter MD [address] [facility] [address] [place], [place] [id number] Social History Tobacco Use Types Packs/Day Years [...] on file Legal Sex Male 2:20 AM SMALL WIND ENERGY INSTALLER Gender Identity Male 07/11/2021 8:22 AM SMALL WIND ENERGY INSTALLER Sexual Orientation Straight 07/11/2021 8: 22 AM SMALL WIND ENERGY INSTALLER documented as of this encounter Functional Status [...] on filedocumented in this encounter Care Teams Entry Level Accountant Relationship Specialty Start Date End Date Zacarias Gutierrez DO PCP - General 12/05/11 Renny Page MD PhD Surgeon Vascular Surgery 12/18/18 documented as of this encounter
--- OUTSIDE RECORDS SUMMARY | 2024-12-01 15:05 | XMS_ITS | Clinical Summary ---
Author Organization [facility] Address [address] [place] [address] Care Team Providers Care Nanny/Household Manager Name Role Phone Zacarias Gutierrez DO Primary Care Provider [phone] Source Comments [facility],non-owned Affiliates and Associated Physician Practices is amultiple site organization consisting of ambulatory clinics and hospital sitesin [place], [place], [place] and [place]. This disclosure is being madepursuant to the Care Everywhere program and may not contain all information available regarding this patient. 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 Gender Identity Not on file Sexual Orientation Not on file Last Filed Vital Signs Vital Sign Reading Time Taken Comments Blood Pressure 152/83 07/08/2017 1:33 PM COIL WINDER REPAIR Pulse 103 07/08/2017 1:33 PM COIL WINDER REPAIR Temperature 36.8 C (98.2 F) 02/26/2017 12:04 PM CDT Respiratory Rate 18 02/26/2017 8:30 PM CDT Oxygen Saturation 100% 07/08/2017 1:33 PM COIL WINDER REPAIR Inhaled Oxygen Concentration - - Weight 76 kg (167 lb 9.6 oz) 07/08/2017 1:33 PM COIL WINDER REPAIR Height 165.1 cm (5' 5) 07/08/2017 1:33 PM COIL WINDER REPAIR Body Mass Index 27.89 07/08/2017 1:33 PM COIL WINDER REPAIR Plan of Treatment Health Maintenance Due Date [...] 7 - 26 mg/dL 02/13/2018 3:30 PM [facility] Creatinine 0.9 0.6 - 1.2 mg/dL 02/13/2018 3:30 PM [facility] Sodium 139 136 - 145 mmol/L 02/13/2018 3:30 PM [facility] Potassium 4.1 3.5 - 4.5 mmol/L 02/13/2018 3:30 PM [facility] Chloride 104 98 - 107 mmol/L 02/13/2018 3:30 PM [facility] CO2 28 22 - 29 mmol/L 02/13/2018 3:30 PM [facility] Glucose 99 70 - 115 mg/dL 02/13/2018 3:30 PM [facility] Calcium 9.7 8.4 - 10.2 mg/dL 02/13/2018 3:30 PM [facility] Protein Total 7.1 6.0 - 8.3 g/dL 02/13/2018 3:30 PM [facility] Albumin 3.7 3.4 - 5.0 g/dL 02/13/2018 3:30 PM [facility] Bilirubin Total 0.3 0.2 - 1.2 mg/dL 02/13/2018 3:30 PM [facility] Alkaline Phosphatase 136 40 - 150 Units/L 02/13/2018 3:30 PM [facility] ALT 20 0 - 55 Units/L 02/13/2018 3:30 PM [facility] AST 22 5 - 34 Units/L 02/13/2018 3:30 PM [facility] Anion Gap 11 8 - 18 02/13/2018 3:30 PM [facility] BUN/Creatinine Ratio 13 7 - 23 02/13/2018 3:30 PM [facility] Osmolality Calculated 288 270 - 300 mOsm/kg 02/13/2018 3:30 PM [facility] Albumin/Globulin Ratio 1.1 1.1 - 2.3 02/13/2018 3:30 PM [facility] eGFR >60 >60 mL/min/1.7 3 m2 02/13/2018 3:30 PM [facility] Blood BLOOD SPECIMEN / Unknown Lab Venipuncture / Unknown 02/13/2018 2:44 PM CDT 02/13/2018 3:05 PM CDT us Justino Bateman MD LAB - CHEMISTRY ORDERABLES Ruchi l Result [address] [phone] * HEPATITIS C ANTIBODY (01/27/2017 8:29 AM CDT) Hepatitis C Antibody Non-react [facility] Comment: Hepatitis C Antibody screen indicates [...] LAB - CHEMISTRY ORDERA BLES Final Result [facility] [address] [place] [address], [facility] [phone] from Last 3 Months or Most Recently Relevant to Health Maintenance Insurance [employer] Care Teams Nanny/Household Manager Relationship Specialty Start Date End Date Zacarias Gutierrez DO PCP - General 02/19/17
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
[2024-12-01 17:33] LABS: Basophils Absolute Auto 0.1 K/mm3 (0.0-0.1); Basophils Percent Auto 0.7 % (0.2-1.2); Eosinophils Absolute Auto 0.1 K/mm3 (0-0.3); Eosinophils Percent Auto 0.6 % (0-4.4); Hematocrit 40.5 % (42.0-52.0); Hemoglobin 13.2 g/dL (14.0-18.0); INR 1.2; Immature Granulocyte Absolute 0.05 K/mm3 (0.00-0.031); Immature Granulocyte Percent A 0.4 % (0-0.5); Lymphocytes Absolute Auto 3.15 K/mm3 (0.9-3.2); Lymphocytes Percent Auto 24.2 % (18.3-44.2); Mean Corpuscular HGB Conc 32.6 g/dl (32-36); Mean Corpuscular Hemoglobin 35.2 pg (26-34); Monocytes Percent Auto 7.3 % (2.6-8.5); Neutrophils Absolute Auto 8.7 K/mm3 (1.3-6.7); Neutrophils Percent Auto 66.8 % (45.5-73.1); Platelet Count Result 205 k/mm3 (150-375); Prothrombin Time 15.6 Seconds (11.1-14.7); Red Blood Count 3.75 M/mm3 (4.6-6.20)
[2024-12-01 17:54] LABS: Platelet Estimate Adequate (Adequate); Schistocytes None Seen
[2024-12-01 17:55] LABS: Band Neutrophils Percent 0 % (0-6); Macrocytosis 1+ (NORMAL)
--- OUTSIDE RECORDS SUMMARY | 2025-01-07 12:57 | XMS_ITS | Referral Summary ---
Author Organization [facility] Address [address] [place] [address] Care Team Providers Care Communications Attendant Name Role Phone Zacarias Gutierrez DO Primary Care Provider [phone] Renny Page MD PhD Unavailable [phone] Encounters Date Type Department Care Team Description 11/03/2024 2:48 PM CDT - 11/03/2024 11:59 PM CDT Hospital Encounter [facility] [address] [place] [address] Discharge Disposition: Discharge to home or self care 10/23/2024 Telephone [facility] [address] [place] [address] for Advanced Medicine [address] [place] [address] Yi Porter MD Lidocaine patch PA approved 07/01/24-06/30/25 10/22/2024 11:45 AM CDT - 10/22/2024 11:59 PM CDT Hospital Encounter [facility] [address] [place] [address] for Advanced Medicine [address] [place] [address] Yi Porter MD Chronic low back pain [...] on file Legal Sex Male 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 Gender Identity Male 07/11/2021 8:22 AM FLEECE TIER Sexual Orientation Straight 07/11/2021 8: 22 AM FLEECE TIER Last Filed Vital Signs Vital Sign Reading [...] as needed Medical Devices Implanted Type Area Network Systems Administrator Device Identifier Shelf Expiration Date Model / Serial / Lot [employer] [id number] Vascu-Guard 8x.8cm Peripheral Patch Vascular Bovine Pericardium - [id number] - [id number] Implanted:Qty: 1 on 12/17/2018 by Renny Page MD PhD at [facility] Graft Right: Neck Monsivais import2 07/23/2023 [id number] / [id number] / [id number] [employer] System Sprint Percutaneous Electrical Nerve Stimulation [id number] - [id number] Implanted:Qty: 1 on 07/10/2022 by Yi Porter MD at [facility] Advanced [facility] Stimulator Bilatera l: Back [employer] 05/01/2023 [id number] / / [id number] Procedures Procedure Name Priority Date/Time Associated [...] only and have not been reviewed by [facility]. There will be no report generated by a [facility]iologist. Narrative [facility] - 11/03/2024 2:48 PM CDT [...] in the abdomen or pelvis. 2. Patent hpkqs-hren-cpxsbxu bypass. 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 [place] left common iliac artery is occluded with reconstitution of the [place] left internal and external iliac via collateral [...] evidence of significant stenosis. [place] left common iliac artery is occluded with reconstitution of the [place] left internal and external iliac via collateral [...] in the abdomen or pelvis. 2. Patent trobp-lxnf-rahygyp bypass. 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
--- OUTSIDE RECORDS SUMMARY | 2025-01-07 12:57 | XMS_ITS | Patient Health Record ---
Author Organization [facility] [employer] [facility] Address [address] [place] [address] Care Team Providers Care Survey Superintendent Name Role Phone Zacarias Gutierrez DO Primary Care Provider Davin Brown Unavailable [phone] Melly Escamilla Unavailable [phone] Reason For Referral No Information Medications Medication SIG (Take, Route, Frequency, Duration) Notes Start Date End Date Status Nicotine 21 MG/24HR Transdermal 05/16/2022 Not-Taking Folic Acid 1 MG Oral 05/16/2022 Not -Taking Vitamin B-1 100 MG Oral 05/16/2022 Not-Taking Losartan Potassium 25 MG Oral 05/16/2022 Not-Taking FLUZONE QUAD (PF) 60 MCG (15 MCG X 4)/0.5 ML IM SYRINGE *Reorder from [employer] for eRx and Interaction Alerts* 05/16/2022 Not-Taking Pantoprazole Sodium 40 MG Oral 05/16/2022 Not-Taking Fluticasone Propionate Diskus 50 MCG/ACT Inhalation *Reorder from [employer] for eRx and Interaction Alerts* 05/16/2022 Not-Taking DULoxetine HCl 30 MG Oral 05/16/2022 Not-Taking TADALAFIL 20 MG TABLET *Reorder from [employer] for eRx and Interaction Alerts* 05/16/2022 Active NEBIVOLOL 20 MG TABLET *Reorder from [facility] for eRx and Interaction Alerts* 05/16/2022 Active ProAir HFA 108 (90 Base) MCG/ACT Inhalation 05/16/2022 Active Baclofen 5 mg ORAL 05/16/2022 Activ e OLANZapine 15 MG Oral 05/16/2022 No t-Taking DULoxetine HCl 60 MG Oral 05/16/2022 Not-Taking amLODIPine Besylate 10 MG Oral 05/16/2022 Active Esomeprazole Magnesium 20 mg Oral 05/16/2022 Active Atorvastatin Calcium 20 MG Oral 05/16/2022 Active Immunizations Vaccine Route Administration Date Status Comme nts Chandan Covid-19 Vaccine Unknown 09/02/2020 Administere d Influenza virus vaccine, quadrivalent (IIV4), split virus, 0.25 mL dosage Unknown 04/16/2019 Administered Social History Tobacco Use: Social History Observation Description Date Details (start date - stop date) Current Smoker NA - NA Sex Assigned At : Social History Observation Description Sex Assigned At Male Tobacco Control (Standard) Question Answer Notes Tobacco use: Current smoker Problems Problem Type SNOMED Code ICD Code Onset Dates Problem Status W/U Status Risk Notes Problem Major depressive disorder, recurrent, mild (F33.0) Active confirmed Problem Generalized anxiety disorder (78198442) Generalized anxiety disorder (F41.1) Active confirmed Encounters Encounter Location Date Provider Diagnosis [facility] [employer] [facility] [address] [facility] [address] [place] [address] 06/18/2024 Melly Andi Major depressive disorder, recurrent, mild F33.0 and Generalized anxiety disorder F41.1 [facility] [place] [address] [address] 07/03/2024 Melly Andi Major depressive disorder, recurrent, mild F33.0 and Generalized anxiety disorder F41.1 [facility] [place] [address] [facility] [address] [place] [address] 07/17/2024 Melly Andi Major depressive disorder, recurrent, mild F33.0 and Generalized anxiety disorder F41.1 [facility] [address] [place] [address] 07/24/2024 Melly Andi Major depressive disorder, recurrent, mild F33.0 and Generalized anxiety disorder F41.1 [facility] [address] [place] [address] 08/03/2024 Melly Andi Major depressive disorder, recurrent, mild F33.0 and Generalized anxiety disorder F41.1 [facility] [place] [address] [facility] [address] [place] [address] 08/10/2024 Melly Andi Major depressive disorder, recurrent, mild F33.0 and Generalized anxiety disorder F41.[address] [facility] [address] [place] [address] 08/24/2024 Melly Andi Major depressive disorder, recurrent, mild F33.0 and Generalized anxiety disorder F41.1 [facility], [address] [address] 09/15/2024 Melly Andi [place] [address] [address] 09/25/2024 Melly Andi Encounter for screening for depression Z13.31 ; Major depressive disorder, recurrent, mild F33.0 and Generalized anxiety disorder F41.1 [facility], [address] [address] 10/15/2024 Melly Andi Major depressive disorder, recurrent, mild F33.0 ; Generalized anxiety disorder F41.1 and Encounter for screening for depression Z13.[address] [address] 11/04/2024 Melly Andi Major depressive disorder, recurrent, mild F33.0 ; Generalized anxiety disorder F41.1 ; Encounter for screening for depression Z13.31 and Nicotine use Z72.[address] [address] 12/03/2024 Melly Andi Major depressive disorder, recurrent, mild F33.0 ; Generalized anxiety disorder F41.1 ; Nicotine use Z72.0 and Encounter for screening for depression Z13.31 [place] [address] [address] 12/21/2024 Melly Andi Major depressive disorder, recurrent, mild F33.0 ; Generalized anxiety disorder F41.1 ; Nicotine use Z72.0 and Encounter for screening for depression Z13.31 [facility], [place] [address] [facility] [address] [place] [address] 01/05/2025 Melly Andi Major depressive disorder, recurrent, mild F33.0 ; Generalized anxiety disorder F41.1 ; Nicotine use Z72.0 and Encounter for screening for depression Z13.31 [facility] [employer] [address] [facility] [address] [place] [address] 06/16/2024 Davin Barajas Assessments Encounter Date Diagnosis [...] His step father passed in 2022 on [employer]. client just finished taking care of his father's estate. Client only recently found out who is biological father is, and he in 1988. Client has some college but did not finish. 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 Client is not currently taking any [...] with feeling on edge, worry (the house, group home), difficulty relaxing, restlessness, and irritability. Client experienced [...] step father passed in 20[address] on [address]. client just finished taking care of his father's estate. Client only recently found out who is biological father is, and he in 1988. Client has some college but did not finish. He worked 23 years in a [employer]. Client is not currently taking any psychiatric [...] with feeling on edge, worry (the house, group home), difficulty relaxing, restlessness, and irritability. Client experienced [...] 12/03/2024 Generalized anxiety disorder (ICD-10 - F41.1) 12/21/2024 Major depressive disorder, recurrent, mild (ICD-10 - F33.0) 12/21/2024 Generalized anxiety disorder (ICD-10 - F41.1) 01/05/2025 Major depressive disorder, recurrent, mild (ICD-10 - F33.0) 01/05/2025 Generalized anxiety disorder (ICD-10 - F41.1) 12/03/2024 Nicotine use (ICD-10 - Z72.0) 12/21/2024 Nicotine use (ICD-10 - Z72.0) 01/05/2025 Nicotine use (ICD-10 - Z72.0) 11/04/2024 Encounter [...] Z13.31) 11/04/2024 Nicotine use (ICD-10 - Z72.0) 12/21/2024 Encounter for screening for depression (ICD-10 - Z13.31) 12/03/2024 Encounter for screening for depression (ICD-10 - Z13.31) 01/05/2025 Encounter for screening for depression (ICD-10 - Z13.31) 06/18/2024 Other Client would l phyllis to return for therapy everyweek. Client is a 63 y/o, X 3 (current marriage 20 years, and X 2, with no biologicial children and 3 step children and 1 adopted child (all grown). Client went on disability 2017 due to arthritis in his back. Client [...] His step father passed in 2022 on [employer]. client just finished taking care of his father's estate. Client only recently found out who is biological father is, and he in 1988. Client has some college but did not finish. 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 Client is not currently taking any [...] with feeling on edge, worry (the house, group home), difficulty relaxing, restlessness, and irritability. Client experienced [...] showing of acceptance. PHQ=6 mild STEPHON=13 moderate 12/21/2024 Other Client continues to focus on the past and the impact that various people have had on his life. It is this therapist's opinion that sofie is more reflective since getting the recent medical diagnosis. Therapist actively listened to client and asked questions for clarification. The therapist then provided a supportive intervention by helping client maintain her current level of functioning through the showing of acceptance. PhQ =4 minimal 01/05/2025 Other Client continues to lose weight. He reports being very frustrated by his trying to do too much for him. Client is very independent and has been so since he lost his leg as a child. He does not do well with others trying to be overly accomodating or helpful. Therapist actively listened to client and utilized a cognitive behavioral intervention to help client to reduce his frustration with others. PHQ= 5 mild STEPHON=11 moderate Plan Of Treatment Next Appt Details Provider Name:Melly Escamilla , 01/19/2025 09:00:00 AM, [address] [facility] [address], [facility] [address], [place], [address], Insurance Providers Payer Name Payer Address Payer Phone Subscriber Number Group Number Insured Name Patient Relationship to Insured Coverage Start Date Coverage End Date Aetna Medicare Supplement [address] [place] [address] [id number] STEVE SIERRA Self - patient is the insured Medical (General) History Medical History History ICD Code Problems: Alcohol abuse Generalized anxiety disorder Moderate recurrent major depression Nicotine dependence with current use , Surgical History Surgery Date(Month/Year) Appendectomy (92271)
--- OUTSIDE RECORDS SUMMARY | 2025-01-07 12:57 | XMS_ITS | Clinical Summary ---
Author Organization [facility] Address [address] [place] [address] Care Team Providers Care Plateman Name Role Phone Zacarias Gutierrez DO Primary Care Provider [phone] [phone] Source Comments [facility],non-owned Affiliates and Associated Physician Practices is amultiple site organization consisting of ambulatory clinics and hospital sitesin [place], [place], [place] and [place]. This disclosure is being madepursuant to the Care Everywhere program and may not contain all information available regarding this patient. Last updated 18.[facility] Allergies No known active allergies Medications * [...] on file Legal Sex Male 5:27 PM PATENT CLERK Gender Identity Not on file Sexual Orientation Not on file Last Filed Vital Signs Vital Sign Reading Time Taken Comments Blood Pressure 152/83 07/08/2017 1:33 PM PATENT CLERK Pulse 103 07/08/2017 1:33 PM PATENT CLERK Temperature 36.8 C (98.2 F) 02/26/2017 12:04 PM CDT Respiratory Rate 18 02/26/2017 8:30 PM CDT Oxygen Saturation 100% 07/08/2017 1:33 PM PATENT CLERK Inhaled Oxygen Concentration - - Weight 76 kg (167 lb 9.6 oz) 07/08/2017 1:33 PM PATENT CLERK Height 165.1 cm (5' 5) 07/08/2017 1:33 PM PATENT CLERK Body Mass Index 27.89 07/08/2017 1:33 PM PATENT CLERK Plan of Treatment Upcoming Encounters Date Type Department Care Team (Late st Contact Info) Description 02/24/2025 10:00 AM CDT Office Visit [facility] [address] [place] [address] Health Maintenance Due Date Last Done Comments COLOGUARD (AGES 45-75) - COLON CA SCREENING 1960 COLON MONITORING 1958 COLONOSCOPY - COLON CA SCREENING 1958 CT COLONOGRAPHY - COLON CA SCREENING 1960 Colorectal Cancer Screening 1958 FIT - COLON CA SCREENING 1958 FLEX SIG - COLON CA SCREENING 1958 DTAP/TDAP/TD VACCINES (1 - Tdap) 1977 PNEUMOCOCCAL VACCINE 50+ (1 of 2 - PCV) 1977 ZOSTER VACCINE (1 of 2) 2008 SCREENING FOR DIABETES 02/13/2021 8, 03/14/2017, 02/26/2017, Additional history exists AAA SCREENING 2023 COVID-19 VACCINE ( season) 2024 DEPRESSION SCREENING 07/01/2024 INFLUENZA VACCINE (#1) 2025 Respiratory Syncytial Virus (RSV) Vaccine Pt: [...] 26 mg/dL 02/13/2018 3:30 PM [facility] Creatinine 0.9 0.6 - 1.2 mg/dL 02/13/2018 3:30 PM [facility] Sodium 139 136 - 145 mmol/L 02/13/2018 3:30 PM [facility] Potassium 4.1 3.5 - 4.5 mmol/L 02/13/2018 3:30 PM [facility] Chloride 104 98 - 107 mmol/L 02/13/2018 3:30 PM [facility] CO2 28 22 - 29 mmol/L 02/13/2018 3:30 PM [facility] Glucose 99 70 - 115 mg/dL 02/13/2018 3:30 PM [facility] Calcium 9.7 8.4 - 10.2 mg/dL 02/13/2018 3:30 PM CDT [facility] Protein Total 7.1 6.0 - 8.3 g/dL 02/13/2018 3:30 PM [facility] Albumin 3.7 3.4 - 5.0 g/dL 02/13/2018 3:30 PM [facility] Bilirubin Total 0.3 0.2 - [...] Bateman MD LAB - CHEMISTRY ORDERABLES Ruchi locktet Result [facility] [address] [phone] * HEPATITIS C ANTIBODY (01/27/2017 8:29 AM CDT) Pathologist [facility] Hepatitis C Antibody Non-react [facility] Comment: Hepatitis C Antibody screen indicates [...] 8:29 AM CDT 01/27/2017 8:52 AM CDT Vicky Smith MD LAB - CHEMISTRY ORDERA BLES Final Result [facility] [address] [place] [address], [facility] [phone] from Last 3 Months or Most Recently Relevant to Health Maintenance Insurance HE[employer] HEALTHLINK Care Teams Plateman Relationship Specialty Start Date End Date Zacarias Gutierrez DO PCP - General 02/19/17
--- OUTSIDE RECORDS SUMMARY | 2025-01-07 12:57 | XMS_ITS | Clinical Summary ---
Author Organization [facility] Address [address] [address] Care Team Providers Care Process Maintenance Technician Name Role Phone Zacarias Gutierrez DO Primary Care Provider +- [phone] Renny Page MD PhD Unavailable [phone] Allergies Active Allergy Reactions Criticality Noted Date [...] 11/03/2024 11:59 PM CDT Hospital Encounter [facility] [address] [place] [address] Discharge Disposition: Discharge to home or self care 10/23/2024 Telephone [facility] [place] [facility] [address] [place] [address] Yi Porter MD Lidocaine patch PA approved 07/01/24-06/30/25 10/22/2024 11:45 AM CDT - 10/22/2024 11:59 PM CDT Hospital Encounter [facility] [place] [facility] [address] [place] [address] Yi Porter MD Chronic low back pain [...] file Legal Sex Male 2:20 AM SUPERVISOR COOLER SERVICE Gender Identity Male 07/11/2021 8:22 AM SUPERVISOR COOLER SERVICE Sexual Orientation Straight 07/11/2021 8: 22 AM SUPERVISOR COOLER SERVICE Obstetrics History Last Filed Vital Signs Vital [...] as needed Medical Devices Implanted Type Area Hard Metals Engraver Hand Device Identifier Shelf Expiration Date Model / Serial / Lot TenKod [id number]-[id number] Vascu-Guard 8x.8cm Peripheral Patch Vascular Bovine Pericardium - [id number] - [id number] Implanted:Qty: 1 on 12/17/2018 by Renny Page MD PhD at [facility] Graft Right: Neck [place] [employer]ok 07/23/2023 VG-[id number] / [id number] / [id number] [employer] System Sprint Percutaneous Electrical Nerve Stimulation [id number] - [id number] Implanted:Qty: 1 on 07/10/2022 by Yi Porter MD at [facility] Stimulator Bilatera l: Back [employer] 05/01/2023 [id number] / / [id number] 22 Procedures Procedure Name Priority Date/Time Associated [...] only and have not been reviewed by [facility] Radiology. There will be no report generated by a [facility] Radiologist. Narrative RAD_PACS_[facility] - 11/03/2024 2:48 [...] in the abdomen or pelvis. 2. Patent ajoye-dinx-nzzqzek bypass. 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 The [place] left common iliac artery is occluded with reconstitution of the [place] left internal and external iliac via collateral [...] and without evidence of significant stenosis. The [place] left common iliac artery is occluded with reconstitution of the [place] left internal and external iliac via collateral [...] in the abdomen or pelvis. 2. Patent vmoia-ruwa-xlmqtjt bypass. 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 at the origin of the [place] internal/external iliac arteries on the left and [...] Most Recently Relevant to Health Maintenance Insurance [facility]ICARE [facility] Address: [facility] [address] [place] [address] [facility] MEDICARE AETNA MEDICARE Advance Directives For more information, please contact: [phone] Documents on File Type Date Recorded Patient Instrument Engineer Expl anation ADVANCE DIRECTIVE 12/22/2018 1:17 PM ED MCCONNELL * Full Code (Latest Code Status on File) Date Activated Date Inactivated Comments 12/17/2018 7:16 PM 12/18/2018 4:46 PM Care Teams Process Maintenance Technician Relationship Specialty Start Date End Date Zacarias Gutierrez, DO PCP - General 12/05/11 Renny Page MD PhD Surgeon Vascular Surgery 12/18/18
--- OUTSIDE RECORDS SUMMARY | 2025-01-07 12:57 | XMS_ITS | Encounter Summary ---
Author Organization [facility] Address [address] [place] [address] Care Team Providers Care Instrumentation Manager Name Role Phone Zacarias Gutierrez DO Primary Care Provider [phone] Renny Page MD PhD Unavailable [phone] Encounter Details Date Type Department Care Team (Late st Contact Info) Description 05/27/2023 Telephone [facility] [place] [facility] [address] [facility] [facility] [address] [place] [address] Yi Porter MD [address] [facility] [address] [facility] [address] [place], [place] [id number] Social History Tobacco Use Types Packs/Day Years [...] on file Legal Sex Male 2:20 AM 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
== END 2024-12-01 15:00 ==
PROVIDERS: PCP Internal Medicine; Visit Provider Nurse Practitioner Family
DX: K74.60 Unspecified cirrhosis of liver (principal)
CPT/HCPCS: 36415; 82105; 85025; 85610

== ENCOUNTER 2024-12-01 15:49 | Outpatient (CLI) | payer MEDICARE, SELFPAY ==
--- OUTSIDE RECORDS SUMMARY | 2024-12-01 15:53 | XMS_ITS | Continuity of Care Document ---
Author Organization [facility] Address [address] [facility] [address] [place] [address] Phone Care Team Providers Care Customs Entry Writer Name Role Phone Dutta OD, Shade Unavailable Unavailable Advance Directives Directive Yes / No Effective Date File Name No Information Encounters Encounter Description Practice Location Reason(s) For Visit Diagnoses Date Provider Providers Copied on Encounter [facility], [address], [place], [place], [id number], [place] tel:[phone] [facility] No Information 2-200 6 Dutta OD [place]. [address], [place], [address], [place]. tel:[phone] Family History Family Member Type Diagnosis Age At Onset No Information Payers Payer name Insurance type Covered democrat ID Authoriza tion(s) [employer] SOI CI [id number] Social History Type Description Quantity Date Captured [...]
--- OUTSIDE RECORDS SUMMARY | 2024-12-01 15:53 | XMS_ITS | CONTINUITY OF CARE DOCUMENT ---
Author Name angela miller Address Unknown Organization [facility] Address [address] [place] [address] [address] [place] [address] Phone [phone] Care Team Providers Care Offensive Coordinator Name Role Phone angela miller Unavailable Unavailable INSURANCE PROVIDERS Payer name Policy type / Coverage type [place] red constitution party ID [facility] [id number]
--- OUTSIDE RECORDS SUMMARY | 2024-12-01 15:53 | XMS_ITS | Clinical Summary ---
Author Organization [facility] Address [address] [facility] [place] [address] Care Team Providers Care Canine Service Instructor Trainer Name Role Phone Zacarias Gutierrez DO Primary Care Provider [phone] Source Comments [facility],non-owned Affiliates and Associated Physician Practices is amultiple site organization consisting of ambulatory clinics and hospital sitesin [place], [place], [place] and [place]. This disclosure is being madepursuant to the Care Everywhere program and may not contain all information available regarding this patient. 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 Gender Identity Not on file Sexual Orientation Not on file Last Filed Vital Signs Vital Sign Reading Time Taken Comments Blood Pressure 152/83 07/08/2017 1:33 PM RETAIL LOAN OFFICER Pulse 103 07/08/2017 1:33 PM RETAIL LOAN OFFICER Temperature 36.8 C (98.2 F) 02/26/2017 12:04 PM CDT Respiratory Rate 18 02/26/2017 8:30 PM CDT Oxygen Saturation 100% 07/08/2017 1:33 PM RETAIL LOAN OFFICER Inhaled Oxygen Concentration - - Weight 76 kg (167 lb 9.6 oz) 07/08/2017 1:33 PM RETAIL LOAN OFFICER Height 165.1 cm (5' 5) 07/08/2017 1:33 PM RETAIL LOAN OFFICER Body Mass Index 27.89 07/08/2017 1:33 PM RETAIL LOAN OFFICER Plan of Treatment Health Maintenance Due [...] 7 - 26 mg/dL 02/13/2018 3:30 PM [facility] Creatinine 0.9 0.6 - 1.2 mg/dL 02/13/2018 3:30 PM [facility] Sodium 139 136 - 145 mmol/L 02/13/2018 3:30 PM [facility] Potassium 4.1 3.5 - 4.5 mmol/L 02/13/2018 3:30 PM [facility] Chloride 104 98 - 107 mmol/L 02/13/2018 3:30 PM [facility] CO2 28 22 - 29 mmol/L 02/13/2018 3:30 PM [facility] Glucose 99 70 - 115 mg/dL 02/13/2018 3:30 PM [facility] Calcium 9.7 8.4 - 10.2 mg/dL 02/13/2018 3:30 PM [facility] Protein Total 7.1 6.0 - 8.3 g/dL 02/13/2018 3:30 PM [facility] Albumin 3.7 3.4 - 5.0 g/dL 02/13/2018 3:30 PM [facility] Bilirubin Total 0.3 0.2 - 1.2 mg/dL 02/13/2018 3:30 PM [facility] Alkaline Phosphatase 136 40 - 150 Units/L 02/13/2018 3:30 PM [facility] ALT 20 0 - 55 Units/L 02/13/2018 3:30 PM [facility] AST 22 5 - 34 Units/L 02/13/2018 3:30 PM [facility] Anion Gap 11 8 - 18 02/13/2018 3:30 PM [facility] BUN/Creatinine Ratio 13 7 - 23 02/13/2018 3:30 PM [facility] Osmolality Calculated 288 270 - 300 mOsm/kg 02/13/2018 3:30 PM [facility] Albumin/Globulin Ratio 1.1 1.1 - 2.3 02/13/2018 3:30 PM [facility] eGFR >60 >60 mL/min/1.7 3 m2 02/13/2018 3:30 PM [facility] Blood BLOOD SPECIMEN / Unknown Lab Venipuncture / Unknown 02/13/2018 2:44 PM CDT 02/13/2018 3:05 PM CDT us Justino Bateman MD LAB - CHEMISTRY ORDERABLES Ruchi l Result [address] [phone] * HEPATITIS C ANTIBODY (01/27/2017 8:29 AM CDT) Hepatitis C Antibody Non-react [facility] Comment: Hepatitis C Antibody screen indicates no [...] LAB - CHEMISTRY ORDERA BLES Final Result [facility] [address] [place] [address], [facility] [phone] from Last 3 Months or Most Recently Relevant to Health Maintenance Insurance [employer] HE[employer] Care Teams Canine Service Instructor Trainer Relationship Specialty Start Date End Date Zacarias Gutierrez DO PCP - General 02/19/17
--- OUTSIDE RECORDS SUMMARY | 2024-12-01 15:53 | XMS_ITS | Clinical Summary ---
Author Organization [facility] Address [address] [address] Care Team Providers Care Picking Machine Operator Helper Name Role Phone Zacarias Gutierrez DO Primary Care Provider [phone]- [phone] Renny Page MD PhD Unavailable [phone] Allergies Active Allergy Reactions Criticality Noted Date [...] - 11/03/2024 11:59 PM CDT Hospital Encounter [facility] ([facility]) [address] [place] [address] Discharge Disposition: Discharge to home or self care 10/23/2024 Telephone [facility] [place] [facility] [address] [place] [address] Yi Porter MD Lidocaine patch PA approved 07/01/24-06/30/25 10/22/2024 11:45 AM CDT - 10/22/2024 11:59 PM CDT Hospital Encounter [facility] [place] [facility] [address] [place] [address] Yi Porter MD Chronic low back pain [...] on file Legal Sex Male 2:20 AM THERAPEUTIC CONSULTANT Gender Identity Male 07/11/2021 8:22 AM THERAPEUTIC CONSULTANT Sexual Orientation Straight 07/11/2021 8: 22 AM THERAPEUTIC CONSULTANT Obstetrics History Last Filed Vital Signs Vital [...] as needed Medical Devices Implanted Type Area Supervisor Throwing Department Device Identifier Shelf Expiration Date Model / Serial / Lot CausePlay Vg-[id number] Vascu-Guard 8x.8cm Peripheral Patch Vascular Bovine Pericardium - [id number] - [id number] Implanted:Qty: 1 on 12/17/2018 by Renny Page MD PhD at [facility] Graft Right: Neck Monsivais [employer] Henok 07/23/2023 VG-[id number] / [id number] / [id number] [employer] System Sprint Percutaneous Electrical Nerve Stimulation 0323-2257 - [id number] Implanted:Qty: 1 on 07/10/2022 by Yi Porter MD at [facility] Stimulator Bilatera l: Back SPR THERAPEUTICS 05/01/2023 [id number] / / [id number] 22 Procedures Procedure Name Priority Date/Time Associated [...] only and have not been reviewed by [facility]iology. There will be no report generated by a [facility] Radiologist. Narrative RAD_PACS_[facility] - 11/03/2024 2:48 [...] in the abdomen or pelvis. 2. Patent ohybb-ayat-gzpedrf bypass. 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 The [place] left common iliac artery is occluded with reconstitution of the [place] left internal and external iliac via collateral [...] and without evidence of significant stenosis. The [place] left common iliac artery is occluded with reconstitution of the [place] left internal and external iliac via collateral [...] in the abdomen or pelvis. 2. Patent rjzbc-jdwr-wnnmjuc bypass. 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 at the origin of the [place] internal/external iliac arteries on the left and [...] Most Recently Relevant to Health Maintenance Insurance [facility] MEDICARE [facility] MEDICARE AETNA MEDICARE Advance Directives For more information, please contact: [phone] Documents on File Type Date Recorded Patient Tinter Photograph Expl anation ADVANCE DIRECTIVE 12/22/2018 1:17 PM ED MCCONNELL * Full Code (Latest Code Status on File) Date Activated Date Inactivated Comments 12/17/2018 7:16 PM 12/18/2018 4:46 PM Care Teams Picking Machine Operator Helper Relationship Specialty Start Date End Date Zacarias Gutierrez, DO PCP - General 12/05/11 Renny Page MD PhD Surgeon Vascular Surgery 12/18/18
--- OUTSIDE RECORDS SUMMARY | 2024-12-01 15:53 | XMS_ITS | Referral Summary ---
Author Organization [facility] Address [address] [facility] [place] [place] [address] Care Team Providers Care Metallurgist Helper Name Role Phone Zacarias Gutierrez DO Primary Care Provider [phone] Renny Page MD PhD Unavailable [phone] Encounters Date Type Department Care Team Description 11/03/2024 2:48 PM CDT - 11/03/2024 11:59 PM CDT Hospital Encounter [facility] ([facility]) [address] [place] [address] Discharge Disposition: Discharge to home or self care 10/23/2024 Telephone [facility] [address] [place] [address] for Advanced Medicine [address] [place] [address] Yi Porter MD Lidocaine patch PA approved 07/01/24-06/30/25 10/22/2024 11:45 AM CDT - 10/22/2024 11:59 PM CDT Hospital Encounter [facility] [place] [facility] [address] [place] [address] for Advanced Medicine [address] [place] [address] Yi Porter MD Chronic low back pain [...] on file Legal Sex Male 2:20 AM HOE RUNNER Gender Identity Male 07/11/2021 8:22 AM HOE RUNNER Sexual Orientation Straight 07/11/2021 8: 22 AM HOE RUNNER Last Filed Vital Signs Vital Sign Reading [...] as needed Medical Devices Implanted Type Area Fingerprint Expert Device Identifier Shelf Expiration Date Model / Serial / Lot Sapio Systems ApS Vg-[id number] Vascu-Guard 8x.8cm Peripheral Patch Vascular Bovine Pericardium - [id number] - [id number] Implanted:Qty: 1 on 12/17/2018 by Renny Page MD PhD at [facility] Graft Right: Neck Monsivais [employer] 07/23/2023 VG-[id number] / [id number] / [id number] Spr Therapeutics System Sprint Percutaneous Electrical Nerve Stimulation 9080-3499 - [id number] Implanted:Qty: 1 on 07/10/2022 by Yi Porter MD at [facility] Stimulator Bilatera l: Back SPR [employer]ERAPEUT[employer] 05/01/2023 [id number] / / [id number] 22 Procedures Procedure Name Priority Date/Time Associated [...] a [facility] Radiologist. Narrative RAD[facility] - 11/03/2024 2:48 PM CDT EXAMINATION: Images [...] in the abdomen or pelvis. 2. Patent qoqgz-asuh-cuhrtsh bypass. 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 The [place] left common iliac artery is occluded with reconstitution of the [place] left internal and external iliac via collateral [...] and without evidence of significant stenosis. The [place] left common iliac artery is occluded with reconstitution of the [place] left internal and external iliac via collateral [...] in the abdomen or pelvis. 2. Patent nytnn-glss-iapyqaz bypass. 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 at the origin of the [place] internal/external iliac arteries on the left and [...] Relevant to Health Maintenance Insurance AETNA MEDICARE Create [facility] MEDICARE AETNA MEDICARE Advance Directives For more information, please contact: [phone] Documents on File Type Date Recorded Patient Orchid Superintendent Expl anation ADVANCE DIRECTIVE 12/22/2018 1:17 PM LIVIN G WILL * Full Code (Latest Code Status on File) Date Activated Date Inactivated Comments 12/17/2018 7:16 PM 12/18/2018 4:46 PM Care Teams Metallurgist Helper Relationship Specialty Start Date End Date Zacarias Gutierrez DO PCP - General 12/05/11 Renny Page MD PhD Surgeon Vascular Surgery 12/18/18
--- OUTSIDE RECORDS SUMMARY | 2024-12-01 15:53 | XMS_ITS | Encounter Summary ---
Author Organization [facility] Healthcare Address [address] [place] [address] Care Team Providers Care An Employee Sponsor Or Advocate And Name Role Phone Zacarias Gutierrez DO Primary Care Provider [phone] Renny Page MD PhD Unavailable [phone] Encounter Details Date Type Department Care Team (Late st Contact Info) Description 05/27/2023 Telephone [facility] [place] [facility] [address] [facility] Advanced Medicine [address] [place] [address] Yi Porter MD [address] [facility] [address] [place], [place] [id number] Social History Tobacco Use Types Packs/Day Years [...] on file Legal Sex Male 2:20 AM CISCO CERTIFIED NETWORK ASSOCIATE Gender Identity Male 07/11/2021 8:22 AM CISCO CERTIFIED NETWORK ASSOCIATE Sexual Orientation Straight 07/11/2021 8: 22 AM CISCO CERTIFIED NETWORK ASSOCIATE documented as of this encounter Functional Status [...] on filedocumented in this encounter Care Teams An Employee Sponsor Or Advocate And Relationship Specialty Start Date End Date Zacarias Gutierrez DO PCP - General 12/05/11 Renny Page MD PhD Surgeon Vascular Surgery 12/18/18 documented as of this encounter
[2024-12-03 12:13] LABS: Alpha Fetoprotein Tumor Marker 8.2 ng/mL (<6.1)
== END 2024-12-01 15:50 | disposition home or self-care (01) ==
PROVIDERS: PCP Internal Medicine; Visit Provider Nurse Practitioner Family
DX: K70.31 Alcoholic cirrhosis of liver with ascites (principal)
CPT/HCPCS: 36415; 82105

== ENCOUNTER 2024-12-08 08:56 | Observation (INO) | payer MEDICARE, SELFPAY ==
[2024-12-08] VITALS (19 sets, daily range): BP systolic 99–145; BP diastolic 46–81; PULSE 74–92; RESP 15–32; TEMP 36.3–36.9; O2SAT 95–100; BMI 26.4
--- NOTE | 2024-12-08 | ECHO_ITS ---
Patient Info Name: Jp Boudreaux Age: 64 years : 1960 Gender: Male Ht: 65 in Wt: 158 lbs BSA: 1.83 m2 BP: 145 / 79 mmHg Technical Quality: Fair Exam Date: 12/08/2024 2:33 PM Patient Status: O Admit Date: 12/08/2024 Exam Type: CA echo doppler color flow Complete two-dimensional, color flow and Doppler transthoracic echocardiogram is performed. Staff Referring Physician: Alysa Mcdonald Retail Sales Merchandiser Development: Shannon Orozco Attending Provider: Gabi Encarnacion MD Summary 1. Complete two-dimensional, color flow and Doppler transthoracic echocardiogram is performed. 2. Left ventricular chamber dimension is normal. 3. Left ventricular systolic function is normal, estimated at 60-65. 4. There is mild concentric increased left ventricular wall thickness. 5. The left ventricular diastolic function is grade I diastolic dysfunction. 6. E/e' 9 is minimally elevated. 7. Left atrial chamber dimension is mildly enlarged. 8. There is mild aortic valve sclerosis. 9. The mitral valve has a mildly calcified annulus. 10. There is mild pulmonic regurgitation. 11. There is small circumferential pericardial effusion. Left Ventricle E/e' 9 is minimally elevated. Left ventricular chamber dimension is normal. Left ventricular systolic function is normal, estimated at 60-65. There is mild concentric increased left ventricular wall thickness. The left ventricular diastolic function is grade I diastolic dysfunction. Right Ventricle Right ventricular chamber dimension is normal. Right ventricular systolic function is normal. Left Atria Left atrial chamber dimension is mildly enlarged. Right Atria Right atrial chamber dimension is normal. Aortic Valve The aortic valve is trileaflet. There is mild aortic valve sclerosis. There is no aortic valve stenosis. There is no aortic valve regurgitation. Pulmonic Valve There is mild pulmonic regurgitation. Mitral Valve The mitral valve has a mildly calcified annulus. There is no mitral valve stenosis. There is no mitral valve regurgitation. Tricuspid Valve There is no tricuspid valve regurgitation. Pericardium/Pleural There is small circumferential pericardial effusion. No cardiac tamponade. Inferior Vena Cava Normal inferior vena cava with >50% collapse upon inspiration consistent with normal right atrial pressure, 5 mmHg. Aorta The aortic root size at the sinus of Valsalva is normal. Left Ventricular Outflow Tract Name Value Normal LVOT 2D LVOT Diameter 2.0 cm LVOT Doppler LVOT Peak Velocity 102 cm/s LVOT Peak Gradient 4 mmHg LVOT Mean Gradient 2 mmHg LVOT VTI 24 cm LVOT Stroke Volume 74 ml LVOT CO 6.4 l/min LVOT CI 3.5 l/min/m2 Pulmonic Valve Name Value Normal RVOT Doppler RVOT Peak Velocity 46 cm/s RVOT Peak Gradient 1 mmHg PV Doppler PV Peak Velocity 86 cm/s PV Peak Gradient 3 mmHg Mitral Valve Name Value Normal MV Diastolic Function MV E Peak Velocity 71 cm/s MV A Peak Velocity 83 cm/s MV E/A 0.9 MV Decel Time (PW) 160 ms MV Annular TDI MV E/e' (Septal) 9.7 MV E/e' (Lateral) 8.4 MV E/e' (Average) 9.0 Tricuspid Valve Name Value Normal Estimated PAP/RSVP RA Pressure 5 mmHg <=5 Aortic Valve Name Value Normal AV Doppler AV Peak Velocity 138 cm/s AV Peak Gradient 8 mmHg AV Area (Cont Eq Scout) 2.2 cm2 AV DI (Scout) 0.74 AV Regurgitation 2D LVOT Area 3.0 cm2 Ventricles Name Value Normal LV Dimensions 2D/MM IVS Diastolic Thickness (2D) 1.0 cm 0.6-1.0 LVID Diastole (2D) 3.4 cm 4.2-5.8 LVIW Diastolic Thickness (2D) 1.2 cm 0.6-1.0 LVID Systole (2D) 2.3 cm 2.5-4.0 LVOT Diameter 2.0 cm LV Mass (2D Cubed) 118.70 g 88.00-224.00 LV Mass Index (2D Cubed) 65 g/m2 49-115 Relative Wall Thickness (2D) 0.73 <=0.42 LV Fractional Shortening/Ejection Fraction 2D/MM LV Fractional Shortening (2D) 32 % 25-43 LV EF (2D Teichholz) 62 % LV Diastolic Volume (4C MOD) 92 ml LV EF (4C MOD) 61 % LV Diastolic Volume (2C MOD) 60 ml LV EF (2C MOD) 65 % LV Diastolic Volume (BP MOD) 76 ml 62-150 LV Diastolic Volume Index (BP MOD) 42 ml/m2 34-74 LV Systolic Volume (BP MOD) 27 ml 21-61 LV Systolic Volume Index (BP MOD) 15 ml/m2 11-31 LV EF (BP MOD) 64 % 52-72 LV Diastolic Length (4C) 7.3 cm LV Systolic Length (4C) 6.1 cm LV Stroke Volume (4C MOD) 56 ml Atria Name Value Normal LA Dimensions LA Volume (4C A-L) 34 ml LA Volume (BP A-L) 35 ml RA Dimensions RA Systolic Major Houstonia Length (4C) 4.9 cm 2.1-2.7 RA Area (4C) 9.3 cm2 <=18.0 Report Signatures
--- NOTE | ~2024-12-08 | US_ITS ---
EXAMINATION: US paracentesis abd w/image DATE: 12/08/2024 16:15 INDICATION: Ascites. TECHNIQUE: The procedure and its risks and benefits were discussed with the patient. Potential risks discussed included bleeding and infection. The skin was prepped and draped in sterile fashion. 1% lid ocaine was used for local anesthesia. Under ultrasound guidance, a 5 Fr catheter with trochar was adv anced into the ascites in the right lower quadrant. Fluid was aspirated into vacuum bottles. The cath eter was removed, and a dressing was applied. There were no immediate complications. FINDINGS: Ultrasound images demonstrate ascites and the catheter within the fluid. IMPRESSION: 1. Successful ultrasound-guided paracentesis yielding 4600 mL of yellow fluid. Reviewed, dictated and finalized at location A.
--- NOTE | ~2024-12-08 | US_ITS ---
EXAMINATION: US abdomen limited DATE: 12/08/2024 11:17 INDICATION: Measuring ascites TECHNIQUE: Multiple grayscale and Doppler ultrasound images of the abdomen were obtained. COMPARISON: None FINDINGS/IMPRESSION: Moderate to large amount of ascites evident in all 4 quadrants of the abdomen. Reviewed, dictated and finalized at location A.
--- NOTE | ~2024-12-08 | XR_ITS ---
EXAMINATION: XR chest 2V DATE: 12/08/2024 11:52 INDICATION: Cough TECHNIQUE: frontal and lateral views of the chest were obtained. COMPARISON: Chest CT dated 11/17/2024 and radiographs dated 03/23/2019 FINDINGS: Lung volumes are decreased on the frontal projection with bronchovascular crowding likely related to incomplete inspiratory effort. There is mild perihilar bronchial wall thickening as seen on prior CT. There is relative increased lucency in the upper lung zones corresponding to moderate emphysema on t he prior CT. The cardiomediastinal silhouette is normal. Moderate thoracic spondylosis. IMPRESSION: 1. Perihilar bronchial wall thickening which could be seen with bronchitis, reactive airway disease/a sthma, atypical pneumonia or mild pulmonary edema. 2. Emphysema. Reviewed, dictated and finalized at location A. IMPRESSION: 1. Perihilar bronchial wall thickening which could be seen with bronchitis, gonzalez ctive airway disease/asthma, atypical pneumonia or mild pulmonary edema. 2. Emphysema.
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
--- OUTSIDE RECORDS SUMMARY | 2024-12-08 09:17 | XMS_ITS | CONTINUITY OF CARE DOCUMENT ---
Author Name angela miller Address Unknown Organization [facility] Address [address] [place] [address] [address] [place] [address] Phone [phone] Care Team Providers Care Professor Computer Science Name Role Phone angela miller Unavailable Unavailable INSURANCE PROVIDERS Payer name Policy type / Coverage type Allgood red democrat ID [facility] [id number]
--- OUTSIDE RECORDS SUMMARY | 2024-12-08 09:17 | XMS_ITS | Encounter Summary ---
Author Organization [facility] Healthcare Address [address] [place] [address] Care Team Providers Care Parakeet Raiser Name Role Phone Zacarias Gutierrez DO Primary Care Provider [phone]- [phone] Renny Page MD PhD Unavailable [phone] Encounter Details Date Type Department Care Team (Late st Contact Info) Description 05/27/2023 Telephone [facility] at the [place] [facility] [address] [facility] [place] Advanced Medicine [address] [place] [address] Yi Porter MD [address] [facility] [address] [place] [address] Social History Tobacco Use Types [...] on file Legal Sex Male 2:20 AM MRI TECHNOLOGIST Gender Identity Male 07/11/2021 8:22 AM MRI TECHNOLOGIST Sexual Orientation Straight 07/11/2021 8: 22 AM MRI TECHNOLOGIST documented as of this encounter Functional Status [...] on filedocumented in this encounter Care Teams Parakeet Raiser Relationship Specialty Start Date End Date Zacarias Gutierrez DO PCP - General 12/05/11 Renny Page MD PhD Surgeon Vascular Surgery 12/18/18 documented as of this encounter
--- OUTSIDE RECORDS SUMMARY | 2024-12-08 09:17 | XMS_ITS | Referral Summary ---
Author Organization [facility] Address [address] [address] Care Team Providers Care Director Of Partnerships Name Role Phone Zacarias Gutierrez DO Primary Care Provider [phone]- [phone] Renny Page MD PhD Unavailable [phone] Encounters Date Type Department Care Team Description 11/03/2024 2:48 PM CDT - 11/03/2024 11:59 PM CDT Hospital Encounter [facility] [address] [place] [address] Discharge Disposition: Discharge to home or self care 10/23/2024 Telephone [facility] [place] [facility] [address] [place] [address] for Advanced Medicine [address] [place] [address] Yi Porter MD Lidocaine patch PA approved 07/01/24-06/30/25 10/22/2024 11:45 AM CDT - 10/22/2024 11:59 PM CDT Hospital Encounter [facility] [place] [facility] [address] [place] [address] for Advanced Medicine [address] [place] [address] Yi Porter MD Chronic low back pain [...] file Legal Sex Male 2:20 AM SUPERVISOR FIREARMS Gender Identity Male 07/11/2021 8:22 AM SUPERVISOR FIREARMS Sexual Orientation Straight 07/11/2021 8: 22 AM SUPERVISOR FIREARMS Last Filed Vital Signs Vital Sign Reading [...] as needed Medical Devices Implanted Type Area Dictaphone Technician Device Identifier Shelf Expiration Date Model / Serial / Lot ZIRX [id number]-[id number] Vascu-Guard 8x.8cm Peripheral Patch Vascular Bovine Pericardium - [id number] - [id number] Implanted:Qty: 1 on 12/17/2018 by Renny Page MD PhD at [facility] Graft Right: Neck Monsivais [email or web address] 07/23/2023 VG-[id number] / [id number] / [id number] Spr [employer]rapeutics System Sprint Percutaneous Electrical Nerve Stimulation [id number] - [id number] Implanted:Qty: 1 on 07/10/2022 by Yi Porter MD at [facility] Stimulator Bilatera l: Back [employer] 05/01/2023 [id number] / / [id number] Procedures Procedure Name Priority Date/Time Associated [...] only and have not been reviewed by [facility] Radiology. There will be no report generated by a [facility] Radiologist. Narrative RAD_[facility] - 11/03/2024 2:48 PM CDT EXAMINATION: Images [...] in the abdomen or pelvis. 2. Patent ysxiv-uuoq-mwpvemo bypass. 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 The [place] left common iliac artery is occluded with reconstitution of the [place] left internal and external iliac via collateral [...] and without evidence of significant stenosis. The [place] left common iliac artery is occluded with reconstitution of the [place] left internal and external iliac via collateral [...] in the abdomen or pelvis. 2. Patent ougcn-vmfo-cacrzgp bypass. 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 at the origin of the [place] internal/external iliac arteries on the left and [...] Relevant to Health Maintenance Insurance AETNA MEDICARE [facility] MEDICARE Address: [facility] [id number] [place] [id number] [employer] [facility] MEDICARE [facility] Address: [address] [place] [address] AETNA MEDICARE Advance Directives For more information, please contact: [phone] Documents on File Type Date Recorded Patient Hose Sprayer Expl anation ADVANCE DIRECTIVE 12/22/2018 1:17 PM LIVIN G WILL * Full Code (Latest Code Status on File) Date Activated Date Inactivated Comments 12/17/2018 7:16 PM 12/18/2018 4:46 PM Care Teams Director Of Partnerships Relationship Specialty Start Date End Date Zacarias Gutierrez DO PCP - General 12/05/11 Renny Page MD PhD Surgeon Vascular Surgery 12/18/18
--- OUTSIDE RECORDS SUMMARY | 2024-12-08 09:18 | XMS_ITS | Clinical Summary ---
Author Organization [facility] Address [address] [address] Care Team Providers Care Sole Splitter Name Role Phone Zacarias Gutierrez DO Primary Care Provider +- [phone] Renny Page MD PhD Unavailable [phone] Allergies Active Allergy Reactions Criticality Noted Date [...] - 11/03/2024 11:59 PM CDT Hospital Encounter [facility]) [address] [place] [address] Discharge Disposition: Discharge to home or self care 10/23/2024 Telephone [facility] [place] [facility] Advanced Medicine [address] [place] [address] Yi Porter MD Lidocaine patch PA approved 07/01/24-06/30/25 10/22/2024 11:45 AM CDT - 10/22/2024 11:59 PM CDT Hospital Encounter [facility] [place] [facility] Medicine [address] [place] [address] Yi Porter MD Chronic low back pain [...] on file Legal Sex Male 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 Gender Identity Male 07/11/2021 8:22 AM AIRPLANE TECHNICIAN Sexual Orientation Straight 07/11/2021 8: 22 AM AIRPLANE TECHNICIAN Obstetrics History Last Filed Vital Signs Vital [...] as needed Medical Devices Implanted Type Area Instructional Technology Specialist Device Identifier Shelf Expiration Date Model / Serial / Lot Vsnap Vg-[id number] Vascu-Guard 8x.8cm Peripheral Patch Vascular Bovine Pericardium - [id number] - [id number] Implanted:Qty: 1 on 12/17/2018 by Renny Page MD PhD at [facility] Graft Right: Neck Monsivais [employer]ok 07/23/2023 VG-[id number] / [id number] / [id number] Spr [employer] System Sprint Percutaneous Electrical Nerve Stimulation 7945-6110 - [id number] Implanted:Qty: 1 on 07/10/2022 by Yi Porter MD at [facility] Stimulator Bilatera l: Back [employer] 05/01/2023 [id number] / / [id number] 22 Procedures Procedure Name Priority Date/Time Associated [...] and have not been reviewed by [facility] Radiology. There will be no report generated by a [facility] Radiologist. Narrative [facility]_P[facility] - 11/03/2024 2:48 PM [...] in the abdomen or pelvis. 2. Patent hzbiz-fhfi-znfctuy bypass. 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 [place] left common iliac artery is occluded with reconstitution of the [place] left internal and external iliac via collateral [...] and without evidence of significant stenosis. [place] left common iliac artery is occluded with reconstitution of the [place] left internal and external iliac via collateral [...] in the abdomen or pelvis. 2. Patent wdgwi-hsgm-dgtbkhr bypass. 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
--- OUTSIDE RECORDS SUMMARY | 2024-12-08 09:18 | XMS_ITS | Clinical Summary ---
Author Organization [facility] [employer] Address [address] [facility] [place] [address] Care Team Providers Care Director Global Strategic Publisher Sales Name Role Phone Zacarias Gutierrez DO Primary Care Provider [phone] Source Comments [facility] [employer],non-owned Affiliates and Associated Physician Practices is amultiple site organization consisting of ambulatory clinics and hospital sitesin [place], [place], [place] and [place]. This disclosure is being madepursuant to the Care Everywhere program and may not contain all information available regarding this patient. Last updated 18.[facility] [employer] Allergies No known active allergies Medications * [...] on file Legal Sex Male 5:27 PM NURSE EMERGENCY Gender Identity Not on file Sexual Orientation Not on file Last Filed Vital Signs Vital Sign Reading Time Taken Comments Blood Pressure 152/83 07/08/2017 1:33 PM NURSE EMERGENCY Pulse 103 07/08/2017 1:33 PM NURSE EMERGENCY Temperature 36.8 C (98.2 F) 02/26/2017 12:04 PM CDT Respiratory Rate 18 02/26/2017 8:30 PM CDT Oxygen Saturation 100% 07/08/2017 1:33 PM NURSE EMERGENCY Inhaled Oxygen Concentration - - Weight 76 kg (167 lb 9.6 oz) 07/08/2017 1:33 PM NURSE EMERGENCY Height 165.1 cm (5' 5) 07/08/2017 1:33 PM NURSE EMERGENCY Body Mass Index 27.89 07/08/2017 1:33 PM NURSE EMERGENCY Plan of Treatment Health Maintenance Due Date [...] 7 - 26 mg/dL 02/13/2018 3:30 PM [facility] Creatinine 0.9 0.6 - 1.2 mg/dL 02/13/2018 3:30 PM [facility] Sodium 139 136 - 145 mmol/L 02/13/2018 3:30 PM [facility] Potassium 4.1 3.5 - 4.5 mmol/L 02/13/2018 3:30 PM [facility] Chloride 104 98 - 107 mmol/L 02/13/2018 3:30 PM [facility] CO2 28 22 - 29 mmol/L 02/13/2018 3:30 PM [facility] Glucose 99 70 - 115 mg/dL 02/13/2018 3:30 PM [facility] Calcium 9.7 8.4 - 10.2 mg/dL 02/13/2018 3:30 PM [facility] Protein Total 7.1 6.0 - 8.3 g/dL 02/13/2018 3:30 PM [facility] Albumin 3.7 3.4 - 5.0 g/dL 02/13/2018 3:30 PM [facility] Bilirubin Total 0.3 0.2 - 1.2 mg/dL [...] LAB - CHEMISTRY ORDERABLES Ruchi l Result [address] [phone] * HEPATITIS C ANTIBODY (01/27/2017 8:29 AM CDT) Hepatitis C Antibody Non-react [facility] Comment: Hepatitis C Antibody screen indicates [...] LAB - CHEMISTRY ORDERA BLES Final Result [facility] [address] [place] [address], [facility] [phone] from Last 3 Months or Most Recently Relevant to Health Maintenance Insurance [employer] HE[employer] Care Teams Director Global Strategic Publisher Sales Relationship Specialty Start Date End Date Zacarias Gutierrez DO PCP - General 02/19/17
--- NOTE | 2024-12-08 09:47 | ECG_ITS ---
Test Date: 2024-12-08 09:53:00 Measurements Intervals [place]man Rate: 77 P: 45 RI: 154 QRS: 5 QRSD: 90 T: 25 QT: 397 QTc: 452 Interpretive Statements SINUS RHYTHM BORDERLINE ST-T WAVE ABNORMALITY- ANT/INF LEADS BASELINE ARTIFACT- I, II, III, AVR, AVL, AVF, V5 BORDERLINE ECG Compared to ECG 11/17/2024 11:23:11 NO SIGNIFICANT CHANGE Electronically Signed On 12-08-2024 09:58:46 CDT by Ronnie Terry D.O.
--- NOTE | 2024-12-08 10:03 | ED_ITS ---
HPI - General Adult General Chief complaint: Unspecified Stated complaint: I need a Paracentesis Time Seen by Provider: 12/08/24 09:11 History of Present Illness HPI narrative: Jp Boudreaux is a 64-year-old male who presents today with complaints of needing a paracentesis. He states that he was here last month that around November 17 and was admitted and had a lot of fluid drained from his abdomen. He states that he was trying to follow up outpatient but there since his insurance issues back in forth and now he is not scheduled for another follow-up paracentesis until January 06 and he does not feel like he can wait that long. He states that he is having shortness of breath because the increased fluid and pressure and can barely eat or drink because he feels so full. Denies any chest pain denies any increased or worsening pain no fevers no chills. Related Data Home Medications ?Medication ?Instructions ?Recorded ?Confirmed ?Last Taken ?Type aspirin 325 mg tablet 325 mg PO DAILY 10/07/19 12/08/24 12/08/24 History multivitamin 1 tablet PO DAILY 10/07/19 12/08/24 12/08/24 History omega-3 fatty acids 1,000 mg 1,000 mg PO DAILY 10/07/19 12/08/24 12/08/24 History capsule (Fish Oil Concentrate) Allergies Allergy/AdvReac Type Severity Reaction Status Date / Time No Known Allergies Allergy Verified 12/08/24 13:20 Review of Systems 2 Review of Systems: All systems reviewed & are unremarkable except as noted in HPI and below PMFSH Past Medical History Medical History (Updated 12/08/24 @ 15:48 by Alysa Mcdonald APRN) Situational anxiety Screening PSA (prostate specific antigen) Phantom limb pain Exposure to heavy metals Encounter for smoking cessation counseling Chronic pain disorder Alcoholic liver failure Above knee amputation of right lower extremity Left carotid artery stenosis Chronic pain PAD (peripheral artery disease) Leukocytosis HTN (hypertension) PVD (peripheral vascular disease) AAA (abdominal aortic aneurysm) Osteoarthritis MRSA (methicillin resistant Staphylococcus aureus) Degenerative arthritis of left knee Hypogonadism History of colon polyps GERD (gastroesophageal reflux disease) HLD (hyperlipidemia) Dystonia of right hand CTS (carpal tunnel syndrome) Bursitis Situational anxiety Surgical History Surgical History H/O colonoscopy with polypectomy 2018 S/P arthroscopic surgery of left knee 2013 History of carpal tunnel release right wrist H/O decgy-gfufc-dtmlvof bypass 05/24/2010 Carotid artery disorder surgery 2019, Right Family History Family History Mother Family history of cardiovascular disease Heart disease Social History Social History Smoking packs per day: 1 Smoking cigarettes per day: 20.0 Smoking status: Current every day smoker Alcohol intake: former Alcohol use details: Last used 11/16 Substance use: current Substance use type: marijuana Other substance usage details: In form of oil Do You Feel Safe in your Home?: Yes Lack of Transportation: No Lack of Food: Never True Current Housing: I Have Housing Concerned About Future Housing: No Difficulty Paying Gas/Electric Bills: No Difficulty Paying for Meds: No Currently Unemployed: No Education: High School Diploma/GED Difficulty w/ Childcare or Family Care: No Living arrangements: with family Spiritual care concerns: No Exam 2 Narrative: GENERAL: Ice follow up of Ion we talked about having at home yet looks like he is on spironolactone as well yeah immune the pitting edema to lower extremity is is not severe but fair she does it and there is some back and then all cost left: Buccal review the hospitalist today right after no acute distress. HEAD: Normocephalic, atraumatic. EYES: PERRLA and EOMI. ENT: Nares clear, no rhinorrhea or epistaxis. Mucous membranes moist. Oropharynx without tonsillar hypertrophy exudate or other lesions. Bilateral TMs pearly valle nonbulging NECK: Supple. No adenopathy or masses. No carotid bruits or JVD CHEST: Clear to auscultation. No respiratory distress. No wheezes rales or rhonchi HEART: Regular rate and rhythm. No murmur heard. Normal peripheral pulses. ABDOMEN: Soft, nontender, nondistended, normal active bowel sounds. EXTREMITIES: Normal range of motion. No edema. SKIN: Warm, dry, no rash. NEURO: No focal deficits. Alert and oriented x3. PSYCH: Normal mood and affect. Course Vital Signs Vital signs: Vital Signs Temperature 36.9 C 12/08/24 09:04 Pulse Rate 84 12/08/24 09:04 Respiratory Rate 16 12/08/24 09:04 Blood Pressure 134/59 L 12/08/24 09:04 Pulse Oximetry 99 12/08/24 09:04 Temperature 36.9 C 12/08/24 09:04 Pulse Rate 88 12/08/24 11:30 Respiratory Rate 28 H 12/08/24 11:30 Blood Pressure 145/79 H 12/08/24 11:32 Pulse Oximetry 100 12/08/24 10:31 Oxygen Delivery Room Air 12/08/24 13:31 Medical Decision Making MDM Narrative Medical decision making narrative: 64-year-old male who presents with reported needing and paracentesis. He states that he last had this done when he was admitted here less than a month ago and had follow-up scheduled but it has been delayed and the next time they can get him in December. He denies any new abdominal pain/ chest pain/ sob but feels that it is getting harder to breath with the amount of abdominal swelling abdomen is grossly distended plan to check labs and consult out to GI Dr. Rich Labs are pretty consistent with previous labs when he was here consulted with Dr. Layla MONAE who recommends admitting for paracentesis and recommends to take more off of the limit to help alleviate his symptoms. He asked for a diagnostic paracentesis to be ordered, admit under hospitalist and he will consult talked with hospitalist Dr. Encarnacion who accepts admission with Dr. Rich for consult Medical Records Medical records reviewed: Yes I reviewed the external patient's medical records. Vital Signs Vital Signs: Vital Signs Temperature 36.9 C 12/08/24 09:04 Pulse Rate 84 12/08/24 09:04 Respiratory Rate 16 12/08/24 09:04 Blood Pressure 134/59 L 12/08/24 09:04 Pulse Oximetry 99 12/08/24 09:04 Temperature 36.9 C 12/08/24 09:04 Pulse Rate 88 12/08/24 11:30 Respiratory Rate 28 H 12/08/24 11:30 Blood Pressure 145/79 H 12/08/24 11:32 Pulse Oximetry 100 12/08/24 10:31 Oxygen Delivery Room Air 12/08/24 13:31 Vitals reviewed by me. Lab Data Lab results reviewed: Yes I reviewed the patient's lab results. 12/08/24 09:58 12/08/24 09:58 Labs: Lab Results 12/08/24 12/08/24 Range/Units 09:57 09:58 WBC 12.0 H (4.5-10.0) K/mm3 RBC 3.96 L (4.6-6.20) M/mm3 Hgb 14.0 (14.0-18.0) g/dL Hct 41.6 L (42.0-52.0) % MCV 105.1 H (80-100) fl MCH 35.4 H (26-34) pg MCHC 33.7 (32-36) g/dl RDW 12.6 (11.5-14.5) % Plt Count 198 (150-375) k/mm3 MPV 10.6 H (7.4-10.4) fl Immature Gran % (Auto) 0.4 (0-0.5) % Neut % (Auto) 73.9 H (45.5-73.1) % Lymph % (Auto) 17.3 L (18.3-44.2) % [place] % (Auto) 7.2 (2.6-8.5) % Eos % (Auto) 0.6 (0-4.4) % Baso % (Auto) 0.6 (0.2-1.2) % Lymph # (Auto) 2.08 (0.9-3.2) K/mm3 [place] # (Auto) 0.9 H (0.1-0.6) K/mm3 Eos # (Auto) 0.1 (0-0.3) K/mm3 Baso # (Auto) 0.1 (0.0-0.1) K/mm3 Abs Immat Gran (auto) 0.05 H (0.00-0.031) K/mm3 Absolute Neuts (auto) 8.9 H (1.3-6.7) K/mm3 Absolute Nucleated RBC 0.000 (0.0-0.012) K/mm3 Band Neutrophils % Not Reportable Nucleated RBC % 0.0 (0.0-0.2) % Platelet Estimate Adequate (Adequate) Macrocytosis 1+ (NORMAL) Schistocytes None seen PT 15.0 H (11.1-14.7) Seconds INR 1.2 APTT 31.9 (22.3-36.8) Seconds Sodium 132 L (137-145) mmol/L Potassium 4.0 (3.4-5.0) mmol/L Chloride 101 (98-107) mmol/L Carbon Dioxide 23 (22-30) mmol/L Anion Gap 8 (4-12) mmol/L BUN 16 (9-20) mg/dL Creatinine 0.61 L (0.7-1.3) mg/dL Estim Creat Clear Calc 88 ml/min Estimated GFR > 60 (59 - ) Glucose 121 H (65-110) mg/dL Calcium 8.9 (8.4-10.2) mg/dL Total Bilirubin 2.0 H (0.2-1.3) mg/dL Direct Bilirubin 1.0 H (0-0.3) mg/dL AST 89 H (17-59) U/L ALT 34 (6-50) U/L Alkaline Phosphatase 207 H (38-126) U/L Troponin I < 0.012 (0.000-0.034) ng/mL Total Protein 6.8 (6.3-8.2) g/dL Albumin 3.4 L 3.5 (3.5-5.1) g/dL Imaging Data Radiologist's impression: Impressions Chest X-Ray 12/08/24 11:56 IMPRESSION: 1. Perihilar bronchial wall thickening which could be seen with bronchitis, reactive airway disease/asthma, atypical pneumonia or mild pulmonary edema. 2. Emphysema. Discharge Plan Discharge Clinical Impression: Ascites Qualifiers: Ascites type: due to alcoholic cirrhosis Qualified Code(s): K70.31 - Alcoholic cirrhosis of liver with ascites Patient Disposition: Still a Patient Condition: Stable Time of Disposition: 15:47
[2024-12-08 10:09] LABS: Basophils Absolute Auto 0.1 K/mm3 (0.0-0.1); Basophils Percent Auto 0.6 % (0.2-1.2); Eosinophils Absolute Auto 0.1 K/mm3 (0-0.3); Eosinophils Percent Auto 0.6 % (0-4.4); Hematocrit 41.6 % (42.0-52.0); Immature Granulocyte Absolute 0.05 K/mm3 (0.00-0.031); Immature Granulocyte Percent A 0.4 % (0-0.5); Lymphocytes Absolute Auto 2.08 K/mm3 (0.9-3.2); Lymphocytes Percent Auto 17.3 % (18.3-44.2); Mean Corpuscular HGB Conc 33.7 g/dl (32-36); Mean Corpuscular Hemoglobin 35.4 pg (26-34); Mean Corpuscular Volume 105.1 fl (80-100); Mean Platelet Volume 10.6 fl (7.4-10.4); Monocytes Absolute Auto 0.9 K/mm3 (0.1-0.6); Monocytes Percent Auto 7.2 % (2.6-8.5); Neutrophils Absolute Auto 8.9 K/mm3 (1.3-6.7); Neutrophils Percent Auto 73.9 % (45.5-73.1); Platelet Count Result 198 k/mm3 (150-375); Red Blood Count 3.96 M/mm3 (4.6-6.20); Red Cell Distribution Width 12.6 % (11.5-14.5)
[2024-12-08 10:20] LABS: Alanine Aminotransferase 34 U/L (6-50); Albumin Level 3.5 g/dL (3.5-5.1); Alkaline Phosphatase 207 U/L (38-126); Anion Gap 8 mmol/L (4-12); Aspartate Amino Transferase 89 U/L (17-59); Blood Urea Nitrogen 16 mg/dL (9-20); Calcium 8.9 mg/dL (8.4-10.2); Carbon Dioxide 23 mmol/L (22-30); Chloride 101 mmol/L (98-107); Estimated CRCL calculation 88 ml/min; Estimated Glomerular Filt Rate > 60; Glucose 121 mg/dL (65-110); Sodium 132 mmol/L (137-145); Total Protein 6.8 g/dL (6.3-8.2)
[2024-12-08] MEDS: IPRATROPIUM 0.5 MG/ALBUTEROL SULFATE 2.5 MG AMPUL.NEB 3 ML INHALATION ×3 (10:21→10:27)
[2024-12-08 10:23] LABS: INR 1.2; Partial Thromboplastin Time 31.9 Seconds (22.3-36.8)
--- OUTSIDE RECORDS SUMMARY | 2024-12-08 10:24 | XMS_ITS | Encounter Summary ---
Author Organization [facility] Healthcare Address [address] [place] [address] Care Team Providers Care Children'S Librarian Name Role Phone Zacarias Gutierrez DO Primary Care Provider [phone] Renny Page MD PhD Unavailable [phone] Encounter Details Date Type Department Care Team (Late st Contact Info) Description 05/27/2023 Telephone [facility] [place] [facility] [place] [facility] [address] [facility] Advanced Medicine [address] [place] [address] Yi Porter MD [address] [facility] [facility] [address] [place] [address] Social History Tobacco Use Types [...] on file Legal Sex Male 2:20 AM INDUSTRY ANALYST Gender Identity Male 07/11/2021 8:22 AM INDUSTRY ANALYST Sexual Orientation Straight 07/11/2021 8: 22 AM INDUSTRY ANALYST documented as of this encounter Functional Status [...] on filedocumented in this encounter Care Teams Children'S Librarian Relationship Specialty Start Date End Date Zacarias Gutierrez DO PCP - General 12/05/11 Renny Page MD PhD Surgeon Vascular Surgery 12/18/18 documented as of this encounter
--- OUTSIDE RECORDS SUMMARY | 2024-12-08 10:24 | XMS_ITS | CONTINUITY OF CARE DOCUMENT ---
Author Name angela miller Address Unknown Organization [facility] Address [address] [place] [address] [address] [place] [address] Phone [phone] Care Team Providers Care Research And Development Director Name Role Phone angela miller Unavailable Unavailable INSURANCE PROVIDERS Payer name Policy type / Coverage type [place] red libertarian ID [facility] [id number]
--- OUTSIDE RECORDS SUMMARY | 2024-12-08 10:24 | XMS_ITS | Continuity of Care Document ---
Author Organization [facility] Address [address] [facility] [address] [place] [address] Phone Care Team Providers Care Cad Manager Name Role Phone Dutta OD, [place] Unavailable Unavailable Advance Directives Directive Yes / No Effective Date File Name No Information Encounters Encounter Description Practice Location Reason(s) For Visit Diagnoses Date Provider Providers Copied on Encounter [facility], [address] [place], [place], [id number], [place] tel:[phone] [facility] No Information 2-200 6 Dutta OD [place]. [address], [place], [address], [place]. tel:[phone] Family History Family Member Type Diagnosis Age At Onset No Information Payers Payer name Insurance type Covered democrat ID Authoriza tion(s) [employer] SOI CI [id number] Social History Type Description Quantity Date Captured [...]
--- OUTSIDE RECORDS SUMMARY | 2024-12-08 10:24 | XMS_ITS | Referral Summary ---
Author Organization [facility] Address [address] [place] [address] Care Team Providers Care Web Publisher Name Role Phone Zacarias Gutierrez DO Primary Care Provider [phone] Renny Page MD PhD Unavailable [phone] Encounters Date Type Department Care Team Description 11/03/2024 2:48 PM CDT - 11/03/2024 11:59 PM CDT Hospital Encounter [facility]) [address] [place] [address] Discharge Disposition: Discharge to home or self care 10/23/2024 Telephone [facility] [address] [place] [address] for Advanced Medicine [address] [place] [address] Yi Porter MD Lidocaine patch PA approved 07/01/24-06/30/25 10/22/2024 11:45 AM CDT - 10/22/2024 11:59 PM CDT Hospital Encounter [facility] [address] [place] [address] for Advanced Medicine [address] [place] [address] Yi Porter MD Chronic low back pain [...] on file Legal Sex Male 2:20 AM BRICK OFF BEARER Gender Identity Male 07/11/2021 8:22 AM BRICK OFF BEARER Sexual Orientation Straight 07/11/2021 8: 22 AM BRICK OFF BEARER Last Filed Vital Signs Vital Sign Reading [...] as needed Medical Devices Implanted Type Area Manufacturing Supervisor 2Nd Shift Device Identifier Shelf Expiration Date Model / Serial / Lot [employer] [id number] Vascu-Guard 8x.8cm Peripheral Patch Vascular Bovine Pericardium - [id number] - [id number] Implanted:Qty: 1 on 12/17/2018 by Renny Page MD PhD at [facility] Graft Right: Neck [email or web address] 07/23/2023 [id number]-[id number] / [id number] / [id number] [employer] System Sprint Percutaneous Electrical Nerve Stimulation [id number] - [id number] Implanted:Qty: 1 on 07/10/2022 by Yi Porter MD at [facility] Stimulator Bilatera l: Back [employer] 05/01/2023 [id number] / / [id number] 22 Procedures Procedure Name Priority Date/Time Associated [...] only and have not been reviewed by [facility]. There will be no report generated by a [facility] Radiologist. Narrative RAD_PACS_[facility] - 11/03/2024 2:48 PM CDT EXAMINATION: [...] in the abdomen or pelvis. 2. Patent ghdns-iqww-jrlsink bypass. 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 The douglas left common iliac artery is occluded with reconstitution of the douglas left internal and external iliac via collateral [...] and without evidence of significant stenosis. The douglas left common iliac artery is occluded with reconstitution of the douglas left internal and external iliac via collateral [...] in the abdomen or pelvis. 2. Patent jqxmn-krxk-jkyclsf bypass. 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 at the origin of the douglas internal/external iliac arteries on the left and [...] Relevant to Health Maintenance Insurance AETNA MEDICARE [employer] [facility] MEDICARE AETNA MEDICARE Advance Directives For more information, please contact: [phone] Documents on File Type Date Recorded Patient Autocad Designer Expl anation ADVANCE DIRECTIVE 12/22/2018 1:17 PM LIVIN G WILL * Full Code (Latest Code Status on File) Date Activated Date Inactivated Comments 12/17/2018 7:16 PM 12/18/2018 4:46 PM Care Teams Web Publisher Relationship Specialty Start Date End Date Zacarias Gutierrez DO PCP - General 12/05/11 Renny Page MD PhD Surgeon Vascular Surgery 12/18/18
--- OUTSIDE RECORDS SUMMARY | 2024-12-08 10:24 | XMS_ITS | Clinical Summary ---
Author Organization [facility] [employer] Address [address] [place] [address] Care Team Providers Care Impregnating Machine Operator Name Role Phone Zacarias Gutierrez DO Primary Care Provider [phone] Source Comments [facility] [employer],non-owned Affiliates and Associated Physician Practices is amultiple site organization consisting of ambulatory clinics and hospital sitesin [place], [place], [place] and [place]. This disclosure is being madepursuant to the Care Everywhere program and may not contain all information available regarding this patient. Last updated 18.[facility] [employer] Allergies No known active allergies Medications * [...] on file Legal Sex Male 5:27 PM CAD MANAGER Gender Identity Not on file Sexual Orientation Not on file Last Filed Vital Signs Vital Sign Reading Time Taken Comments Blood Pressure 152/83 07/08/2017 1:33 PM CAD MANAGER Pulse 103 07/08/2017 1:33 PM CAD MANAGER Temperature 36.8 C (98.2 F) 02/26/2017 12:04 PM CDT Respiratory Rate 18 02/26/2017 8:30 PM CDT Oxygen Saturation 100% 07/08/2017 1:33 PM CAD MANAGER Inhaled Oxygen Concentration - - Weight 76 kg (167 lb 9.6 oz) 07/08/2017 1:33 PM CAD MANAGER Height 165.1 cm (5' 5) 07/08/2017 1:33 PM CAD MANAGER Body Mass Index 27.89 07/08/2017 1:33 PM CAD MANAGER Plan of Treatment Health Maintenance Due Date [...] 7 - 26 mg/dL 02/13/2018 3:30 PM [facility] [employer] Creatinine 0.9 0.6 - 1.2 mg/dL 02/13/2018 3:30 PM [facility] [employer] Sodium 139 136 - 145 mmol/L 02/13/2018 3:30 PM [facility] [employer] [facility] [facility] Potassium 4.1 3.5 - 4.5 mmol/L 02/13/2018 3:30 PM [facility] [employer] [facility] [facility] Chloride 104 98 - 107 mmol/L 02/13/2018 3:30 PM [facility] [employer] CO2 28 22 - 29 mmol/L 02/13/2018 3:30 PM [facility] [facility] Glucose 99 70 - 115 mg/dL 02/13/2018 3:30 PM [facility] [employer] [facility] [facility] Calcium 9.7 8.4 - 10.2 mg/dL 02/13/2018 3:30 PM [facility] [facility] [facility] Protein Total 7.1 6.0 - 8.3 g/dL 02/13/2018 3:30 PM [facility] [employer] [facility] Albumin 3.7 3.4 - 5.0 g/dL 02/13/2018 3:30 PM [facility] [facility] [facility] [facility] Bilirubin Total 0.3 0.2 - 1.2 mg/dL 02/13/2018 3:30 PM [facility] Alkaline Phosphatase 136 40 - 150 Units/L 02/13/2018 3:30 PM [facility] ALT 20 0 - 55 Units/L 02/13/2018 3:30 PM [facility] AST 22 5 - 34 Units/L 02/13/2018 3:30 PM [facility] Anion Gap 11 8 - 18 02/13/2018 3:30 PM [facility] BUN/Creatinine Ratio 13 7 - 23 02/13/2018 3:30 PM [facility] Osmolality Calculated 288 270 - 300 mOsm/kg 02/13/2018 3:30 PM [facility] Albumin/Globulin Ratio 1.1 1.1 - 2.3 02/13/2018 3:30 PM [facility] eGFR >60 >60 mL/min/1.7 3 m2 02/13/2018 3:30 PM [facility] Blood BLOOD SPECIMEN / Unknown Lab Venipuncture / Unknown 02/13/2018 2:44 PM CDT 02/13/2018 3:05 PM CDT us Justino Bateman MD LAB - CHEMISTRY ORDERABLES Ruchi l Result [address] [phone] * HEPATITIS C ANTIBODY (01/27/2017 8:29 AM [...] LAB - CHEMISTRY ORDERA BLES Final Result [facility] [address] [place] [address], [facility] [phone] from Last 3 Months or Most Recently Relevant to Health Maintenance Insurance [employer] HE[employer] Care Teams Impregnating Machine Operator Relationship Specialty Start Date End Date Zacarias Gutierrez DO PCP - General 02/19/17
--- OUTSIDE RECORDS SUMMARY | 2024-12-08 10:24 | XMS_ITS | Clinical Summary ---
Author Organization [facility] Address [address] [address] Care Team Providers Care Rn Relief Charge Name Role Phone Zacarias Gutierrez DO Primary Care Provider +- [phone] Renny Page MD PhD Unavailable [phone] Allergies Active Allergy Reactions Criticality Noted Date [...] - 11/03/2024 11:59 PM CDT Hospital Encounter [facility]) [address] [place] [address] Discharge Disposition: Discharge to home or self care 10/23/2024 Telephone [facility] [place] [facility] [address] [place] [address] Yi Porter MD Lidocaine patch PA approved 07/01/24-06/30/25 10/22/2024 11:45 AM CDT - 10/22/2024 11:59 PM CDT Hospital Encounter [facility] [place] [facility] [address] [place] [address] Yi Porter MD Chronic low back pain [...] on file Legal Sex Male 2:20 AM BILINGUAL PATIENT SUPPORT CASEWORKER Gender Identity Male 07/11/2021 8:22 AM BILINGUAL PATIENT SUPPORT CASEWORKER Sexual Orientation Straight 07/11/2021 8: 22 AM BILINGUAL PATIENT SUPPORT CASEWORKER Obstetrics History Last Filed Vital Signs Vital [...] as needed Medical Devices Implanted Type Area Md Ophthalmologist Device Identifier Shelf Expiration Date Model / Serial / Lot [employer] Vg-[id number] Vascu-Guard 8x.8cm Peripheral Patch Vascular Bovine Pericardium - [id number] - [id number] Implanted:Qty: 1 on 12/17/2018 by Renny Page MD PhD at [facility] Graft Right: Neck [employer] 07/23/2023 VG-0108N / [id number] / [id number] [employer] System Sprint Percutaneous Electrical Nerve Stimulation [id number] - [id number] Implanted:Qty: 1 on 07/10/2022 by Yi Porter MD at [facility] Stimulator Bilatera l: Back [employer] 05/01/2023 [id number] / / [id number] 22 Procedures Procedure Name Priority Date/Time Associated [...] only and have not been reviewed by [facility]. There will be no report generated by a [facility] Radiologist. Narrative RAD_PACS_[facility] - 11/03/2024 2:48 PM [...] in the abdomen or pelvis. 2. Patent jvumq-bnom-pogtppu bypass. 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 at the origin of the shawnee internal/external iliac arteries on the left and [...] and without evidence of significant stenosis. The shawnee left common iliac artery is occluded with reconstitution of the shawnee left internal and external iliac via collateral [...] and without evidence of significant stenosis. The shawnee left common iliac artery is occluded with reconstitution of the shawnee left internal and external iliac via collateral [...] in the abdomen or pelvis. 2. Patent tppis-tocm-uemdiig bypass. 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 at the origin of the shawnee internal/external iliac arteries on the left and [...] Most Recently Relevant to Health Maintenance Insurance [facility] MEDICARE [facility] MEDICARE AETNA MEDICARE Advance Directives For more information, please contact: [phone] Documents on File Type Date Recorded Patient Radio Repairer Domestic Expl anation ADVANCE DIRECTIVE 12/22/2018 1:17 PM ED MCCONNELL * Full Code (Latest Code Status on File) Date Activated Date Inactivated Comments 12/17/2018 7:16 PM 12/18/2018 4:46 PM Care Teams Rn Relief Charge Relationship Specialty Start Date End Date Zacarias Gutierrez, DO PCP - General 12/05/11 Renny Page MD PhD Surgeon Vascular Surgery 12/18/18
[2024-12-08 10:32] LABS: Troponin I < 0.012 ng/mL (0.000-0.034)
[2024-12-08 10:33] LABS: Platelet Estimate Adequate (Adequate); Schistocytes None Seen
[2024-12-08 10:36] LABS: Macrocytosis 1+ (NORMAL)
--- NOTE | 2024-12-08 12:04 | ADMGEN ---
This patient, Jp Boudreaux, was admitted to Medical Room 342-01. Patient/family oriented to hospital policies and general routines including ID bracelet, bed and alarms, visiting hours, pain management, procedures, bathroom and other care routines, personal items, smoking policy, room service/diet, and visiting hours. Information on how to activate the Rapid Response Team has been discussed. Patient/Family are encouraged to report perceived risks to care and to ask questions if they do not understand what they are told or what they should do.
[2024-12-08 12:36] LABS: Albumin Level 3.4 g/dL (3.5-5.1)
--- NOTE | 2024-12-08 13:47 | PM.IMHP ---
H&P: HPI History of Present Illness Date/Time: 12/08/24 13:47 Chief Complaint: Dyspnea related to abdominal ascites related to liver cirrhosis Narrative: This is a 64 year old male patient with history of cirrhosis of the liver who is admitted to the hospital due to severe abdominal ascites requiring paracentesis. His outpatient appointment for this procedure is not until December, about a month away. He last had abdomen drained about 3-4 weeks ago. Today he came to ER due to difficulty breathing and inability to eat/drink anything due to severe swelling of the abdomen. Labs showed WBC 12, Sodium chronically low at 132, renal function normal. Patient already takes oral furosemide and spironolactone at home. GI (Dr. Rich) was consulted by the ER and saw patient. Patient going to get Ultrasound guided paracentesis completed today. Review of Systems Review of Systems: All systems reviewed & are unremarkable except as noted in HPI and below PMFSH Past Medical History Medical History (Updated 12/09/24 @ 01:05 by Lars Wylie APRN) Situational anxiety Screening PSA (prostate specific antigen) Phantom limb pain Exposure to heavy metals Encounter for smoking cessation counseling Chronic pain disorder Alcoholic liver failure Above knee amputation of right lower extremity Left carotid artery stenosis Chronic pain PAD (peripheral artery disease) Leukocytosis HTN (hypertension) PVD (peripheral vascular disease) AAA (abdominal aortic aneurysm) Osteoarthritis MRSA (methicillin resistant Staphylococcus aureus) Degenerative arthritis of left knee Hypogonadism History of colon polyps GERD (gastroesophageal reflux disease) HLD (hyperlipidemia) Dystonia of right hand CTS (carpal tunnel syndrome) Bursitis Situational anxiety Surgical History Surgical History H/O colonoscopy with polypectomy 2017 S/P arthroscopic surgery of left knee 2013 History of carpal tunnel release right wrist H/O gnnwx-hqmfv-oovisaq bypass 05/24/2010 Carotid artery disorder surgery 2019, Right Family History Family History Mother Family history of cardiovascular disease Heart disease Social History Social History Smoking packs per day: 1 Smoking cigarettes per day: 20.0 Smoking status: Current every day smoker Alcohol intake: former Alcohol use details: Last used 11/16 Substance use: current Substance use type: marijuana Other substance usage details: In form of oil Do You Feel Safe in your Home?: Yes Lack of Transportation: No Lack of Food: Never True Current Housing: I Have Housing Concerned About Future Housing: No Difficulty Paying Gas/Electric Bills: No Difficulty Paying for Meds: No Currently Unemployed: No Education: High School Diploma/GED Difficulty w/ Childcare or Family Care: No Living arrangements: with family Spiritual care concerns: No Meds Home Medications and Allergies Home Medications ?Medication ?Instructions ?Recorded ?Confirmed ?Type aspirin 325 mg tablet 325 mg PO DAILY 10/07/19 12/08/24 History multivitamin 1 tablet PO DAILY 10/07/19 12/08/24 History omega-3 fatty acids 1,000 mg 1,000 mg PO DAILY 10/07/19 12/08/24 History capsule (Fish Oil Concentrate) esomeprazole magnesium 20 mg See Rx Instructions .Route 11/09/24 12/08/24 Rx capsule,delayed release .COMPLEX #90 caps atorvastatin 20 mg tablet 20 mg PO DAILY #90 tabs 11/24/24 12/08/24 Rx tadalafil 20 mg tablet See Rx Instructions .Route 11/24/24 12/08/24 Rx .COMPLEX #6 tabs furosemide 40 mg tablet 40 mg PO DAILY #30 tabs 11/30/24 12/08/24 Rx carvedilol 3.125 mg tablet (Coreg) 3.125 mg PO Q12H #60 tabs 12/01/24 12/08/24 Rx lactulose 10 gram/15 mL oral 10 g (15 mL) PO BID #1,200 mL 12/01/24 12/08/24 Rx solution spironolactone 50 mg tablet 150 mg (3 x 50 mg) PO QAM #90 tabs 12/08/24 Rx (Aldactone) Allergies Allergy/AdvReac Type Severity Reaction Status Date / Time No Known Allergies Allergy Verified 12/08/24 13:20 Vital Signs Vital Signs - 24 hr 12/08/24 09:04 12/08/24 09:14 12/08/24 09:44 Temperature 36.9 C Pulse Rate 84 74 Respiratory Rate 16 24 H 19 Blood Pressure 134/59 L Pulse Oximetry 99 98 12/08/24 09:45 12/08/24 09:45 12/08/24 10:00 Temperature Pulse Rate 76 75 80 Respiratory Rate 30 H 15 Blood Pressure Pulse Oximetry 96 12/08/24 10:15 12/08/24 10:17 12/08/24 10:25 Temperature Pulse Rate 81 79 74 Respiratory Rate 32 H 32 H 24 H Blood Pressure 99/46 L Pulse Oximetry 96 95 12/08/24 10:31 12/08/24 10:47 12/08/24 10:48 Temperature Pulse Rate 75 80 82 Respiratory Rate 29 H 24 H 32 H Blood Pressure 128/81 130/60 Pulse Oximetry 100 12/08/24 11:00 12/08/24 11:02 12/08/24 11:15 Temperature Pulse Rate 79 79 83 Respiratory Rate 24 H 16 21 H Blood Pressure 130/74 Pulse Oximetry 12/08/24 11:16 12/08/24 11:30 12/08/24 11:32 Temperature Pulse Rate 83 88 Respiratory Rate 24 H 28 H Blood Pressure 136/73 145/79 H Pulse Oximetry Exam Narrative: GENERAL: Appears uncomfortable, dyspnea noted HEAD: Normocephalic, atraumatic. ENT:? Mucous membranes moist. CHEST: Tachypnea with diminished lung sounds, mild respiratory distress and uncomfortable appearing HEART: Regular rate and rhythm. ? Normal peripheral pulses. ABDOMEN: Protuberant, significant ascites noted, generalized tenderness EXTREMITIES: Normal range of motion. No peripheral edema. SKIN: Warm dry normal color NEURO: Alert and oriented x3. H&P: Results Labs Labs: Short CBC 12/08/24 Range/Units 09:58 WBC 12.0 H (4.5-10.0) K/mm3 Hgb 14.0 (14.0-18.0) g/dL Hct 41.6 L (42.0-52.0) % Plt Count 198 (150-375) k/mm3 [facility] 12/08/24 09:58 Sodium 132 L Potassium 4.0 Chloride 101 Carbon Dioxide 23 BUN 16 Creatinine 0.61 L Glucose 121 H Calcium 8.9 Cardiac Enzymes 12/08/24 Range/Units 09:58 Troponin I < 0.012 (0.000-0.034) ng/mL Liver Function 12/08/24 12/08/24 Range/Units 09:57 09:58 Total Bilirubin 2.0 H (0.2-1.3) mg/dL Direct Bilirubin 1.0 H (0-0.3) mg/dL AST 89 H (17-59) U/L ALT 34 (6-50) U/L Alkaline Phosphatase 207 H (38-126) U/L Albumin 3.4 L 3.5 (3.5-5.1) g/dL Pulse Oximetry SpO2 results: 95-99% on room air Attestation: I personally reviewed and interpreted this pulse oximetry as follows: Interpretation: No need for supplemental oxygenation at this time ECG Attestation: I personally reviewed and interpreted this ECG as follows: ECG completion date: 12/08/24 ECG completion time: 09:53 Prior ECG tracings: available for review Interpretation: Sinus rhythm rate of 77 NH interval 154 QRS duration 90 QTC 452 QRS axis 5? no STEMI Imaging Chest x-ray: Radiologist's impression: EXAMINATION: XR chest 2V DATE: 12/08/2024 11:52 INDICATION: Cough TECHNIQUE: frontal and lateral views of the chest were obtained. COMPARISON: Chest CT dated 11/17/2024 and radiographs dated 03/23/2019 FINDINGS: Lung volumes are decreased on the frontal projection with bronchovascular crowding likely related to incomplete inspiratory effort. There is mild perihilar bronchial wall thickening as seen on prior CT. There is relative increased lucency in the upper lung zones corresponding to moderate emphysema on the prior CT. The cardiomediastinal silhouette is normal. Moderate thoracic spondylosis. IMPRESSION: 1. Perihilar bronchial wall thickening which could be seen with bronchitis, reactive airway disease/asthma, atypical pneumonia or mild pulmonary edema. 2. Emphysema. Reviewed, dictated and finalized at location A. US - abdomen: Radiologist's impression: EXAMINATION: US abdomen limited DATE: 12/08/2024 11:17 INDICATION: Measuring ascites TECHNIQUE: Multiple grayscale and Doppler ultrasound images of the abdomen were obtained. COMPARISON: None FINDINGS/IMPRESSION: Moderate to large amount of ascites evident in all 4 quadrants of the abdomen. Reviewed, dictated and finalized at location A. Assessment and Plan Assessment and plan (1) Liver cirrhosis: Qualifiers: Ascites presence: with ascites Hepatic cirrhosis type: alcoholic cirrhosis Qualified Code(s): K70.31 - Alcoholic cirrhosis of liver with ascites Code(s): K74.60 - Unspecified cirrhosis of liver Status: Acute Assessment and Plan: -Related to alcoholic liver failure per records review -Significant ascites present causing dyspnea and pain/distension -US guides paracentesis ordered from ER -Hold aspirin, SCDs for VTE prophylaxis -Continue furosemide and spironolactone -Albumin 3.5, consider giving albumin if hypotension after paracentesis -Echocardiogram ordered (2) Ascites: Qualifiers: Ascites type: due to alcoholic cirrhosis Qualified Code(s): K70.31 - Alcoholic cirrhosis of liver with ascites Code(s): R18.8 - Other ascites Status: Acute Assessment and Plan: -See above -Tachypnea and dyspnea also noted (3) Hyponatremia: Code(s): E87.1 - Hypo-osmolality and hyponatremia Status: Acute Assessment and Plan: -Chronic hyponatremia, currently 132 on admission which appears stable (4) Tobacco abuse: Code(s): Z72.0 - Tobacco use Status: Acute Assessment and Plan: -Nicotine patch ordered (5) HLD (hyperlipidemia): Qualifiers: Hyperlipidemia type: unspecified Qualified Code(s): E78.5 - Hyperlipidemia, unspecified Code(s): E78.5 - Hyperlipidemia, unspecified Status: Acute Assessment and Plan: -Continue atorvastatin (6) Dyspnea: Code(s): R06.00 - Dyspnea, unspecified Status: Acute Assessment and Plan: -Very uncomfortable -Distended abdomen making breathing labored Quality VTE Prophylaxis VTE prophylaxis: mechanical ordered If No VTE Prophylaxis Answer both mechanical and pharmacologic: Reason no pharmacologic proph: medical contraindication active bleeding/bleeding risk Hospitalist MIPS Advance Care Plan I have confirmed that the patient's Advanced Care Plan is present, code status is documented, or surrogate decision maker is listed in patient medical record.: Yes Medication Reconciliation I have utilized all available resources to obtain, update and review the patients current medications (includes all prescriptions, OTC, herbals, cannabis, and nutritional supplements).: Yes
--- OUTSIDE RECORDS SUMMARY | 2024-12-08 15:17 | XMS_ITS | Continuity of Care Document ---
Author Organization [facility] Address [address] [facility] [address] [place] [address] Phone Care Team Providers Care Asthma Educator Name Role Phone Dutta OD, Shade Unavailable Unavailable Advance Directives Directive Yes / No Effective Date File Name No Information Encounters Encounter Description Practice Location Reason(s) For Visit Diagnoses Date Provider Providers Copied on Encounter [facility], [address] [place], [place], [id number], [place] tel:[phone] [facility] No Information 2-200 6 Dutta OD Sh[place]. [address] , [address], [place], [address], [place]. tel:[phone] Family History Family Member Type Diagnosis Age At Onset No Information Payers Payer name Insurance type Covered libertarian ID Authoriza tion(s) [employer] SOI CI [id number] Social History Type Description Quantity Date Captured [...]
--- OUTSIDE RECORDS SUMMARY | 2024-12-08 15:17 | XMS_ITS | Encounter Summary ---
Author Organization [facility] Address [address] [place] [address] Care Team Providers Care Public Health Training Assistant Name Role Phone Zacarias Gutierrez DO Primary Care Provider [phone]- [phone] Renny Page MD PhD Unavailable [phone] Encounter Details Date Type Department Care Team (Late st Contact Info) Description 05/27/2023 Telephone [facility] [place] [facility] [address] [facility] Advanced [facility] [address] [place] [address] Yi Porter MD [address] [facility] [address] [place] [address] Social History Tobacco Use Types [...] on file Legal Sex Male 2:20 AM SEA AIR LAND OFFICER Gender Identity Male 07/11/2021 8:22 AM SEA AIR LAND OFFICER Sexual Orientation Straight 07/11/2021 8: 22 AM SEA AIR LAND OFFICER documented as of this encounter Functional Status [...] on filedocumented in this encounter Care Teams Public Health Training Assistant Relationship Specialty Start Date End Date Zacarias Gutierrez DO PCP - General 12/05/11 Renny Page MD PhD Surgeon Vascular Surgery 12/18/18 documented as of this encounter
--- OUTSIDE RECORDS SUMMARY | 2024-12-08 15:17 | XMS_ITS | Referral Summary ---
Author Organization [facility] Address [address] [place] [address] Care Team Providers Care Stripper Apprentice Name Role Phone Zacarias Gutierrez DO Primary Care Provider [phone] Renny Page MD PhD Unavailable [phone] Encounters Date Type Department Care Team Description 11/03/2024 2:48 PM CDT - 11/03/2024 11:59 PM CDT Hospital Encounter [facility]) [address] [place] [address] Discharge Disposition: Discharge to home or self care 10/23/2024 Telephone [facility] [address] [place] [address] for Advanced Medicine [address] [place] [address] Yi Porter MD Lidocaine patch PA approved 07/01/24-06/30/25 10/22/2024 11:45 AM CDT - 10/22/2024 11:59 PM CDT Hospital Encounter [facility] [place] [facility] [address] [place] [address] for Advanced Medicine [address] [place] [address] Yi Porter MD Chronic low back pain [...] on file Legal Sex Male 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 Gender Identity Male 07/11/2021 8:22 AM DYSLEXIA TEACHER Sexual Orientation Straight 07/11/2021 8: 22 AM DYSLEXIA TEACHER Last Filed Vital Signs Vital Sign Reading [...] as needed Medical Devices Implanted Type Area Dispatcher Bus And Trolley Device Identifier Shelf Expiration Date Model / Serial / Lot Central Logic [id number] Vascu-Guard 8x.8cm Peripheral Patch Vascular Bovine Pericardium - [id number] - [id number] Implanted:Qty: 1 on 12/17/2018 by Renny Page MD PhD at [facility] Graft Right: Neck Monsivais [employer] 07/23/2023 VG-[id number] / [id number] / [id number] [employer] System Sprint Percutaneous Electrical Nerve Stimulation [id number] - [id number] Implanted:Qty: 1 on 07/10/2022 by Yi Porter MD at [facility] Stimulator Bilatera l: Back SPR [employer] 05/01/2023 [id number] / / [id number] 22 Procedures Procedure Name Priority Date/Time Associated [...] only and have not been reviewed by [facility]. There will be no report generated by a [facility] Radiologist. Narrative RAD_PACS_[facility] - 11/03/2024 2:48 PM CDT [...] in the abdomen or pelvis. 2. Patent mlfis-vsch-dtdyawf bypass. 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 The [place] left common iliac artery is occluded with reconstitution of the [place] left internal and external iliac via collateral [...] and without evidence of significant stenosis. The [place] left common iliac artery is occluded with reconstitution of the [place] left internal and external iliac via collateral [...] in the abdomen or pelvis. 2. Patent sxufp-znkd-vxybvcf bypass. 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 at the origin of the [place] internal/external iliac arteries on the left and [...] to Health Maintenance Insurance AETNA MEDICARE [facility] MEDICARE Address: [facility] [id number] [place] [id number] OpenText [facility] MEDICARE AETNA MEDICARE Advance Directives For more information, please contact: [phone] Documents on File Type Date Recorded Patient Log Processor Operator Expl anation ADVANCE DIRECTIVE 12/22/2018 1:17 PM LIVIN G WILL * Full Code (Latest Code Status on File) Date Activated Date Inactivated Comments 12/17/2018 7:16 PM 12/18/2018 4:46 PM Care Teams Stripper Apprentice Relationship Specialty Start Date End Date Zacarias Gutierrez DO PCP - General 12/05/11 Renny Page MD PhD Surgeon Vascular Surgery 12/18/18
--- OUTSIDE RECORDS SUMMARY | 2024-12-08 15:17 | XMS_ITS | CONTINUITY OF CARE DOCUMENT ---
Author Name angela miller Address Unknown Organization [facility] Address [address] [place] [address] [address] [place] [address] Phone [phone] Care Team Providers Care Assembler Final Name Role Phone anegla miller Unavailable Unavailable INSURANCE PROVIDERS Payer name Policy type / Coverage type [place] red alliance party ID [facility] [id number]
--- OUTSIDE RECORDS SUMMARY | 2024-12-08 15:17 | XMS_ITS | Continuity of Care Document ---
Author Organization [facility] Address [address] [place] [address] Phone Care Team Providers Care Calibration Tester Name Role Phone Dutta OD, Shade Unavailable Unavailable Advance Directives Directive Yes / No Effective Date File Name No Information Encounters Encounter Description Practice Location Reason(s) For Visit Diagnoses Date Provider Providers Copied on Encounter [facility], [address], [place], [place], [address], [place] tel:[phone] [facility] No Information 2-200 6 Dutta OD Sh[place]. [address], [place], [address], [place]. tel:[phone] Family History Family Member Type Diagnosis Age At Onset No Information Payers Payer name Insurance type Covered green party ID Authoriza tion(s) [employer] SOI CI [id number] Social History Type Description Quantity Date Captured [...]
--- OUTSIDE RECORDS SUMMARY | 2024-12-08 15:17 | XMS_ITS | Clinical Summary ---
Author Organization [facility] Address [address] [address] Care Team Providers Care Airline Stewardess Name Role Phone Zacarias Gutierrez DO Primary Care Provider [phone]- [phone] Renny Page MD PhD Unavailable [phone] Allergies Active Allergy Reactions Criticality Noted Date [...] - 11/03/2024 11:59 PM CDT Hospital Encounter [facility]) [address] [place] [address] Discharge Disposition: Discharge to home or self care 10/23/2024 Telephone [facility] [place] [facility] Advanced Medicine [address] [place] [address] Yi Porter MD Lidocaine patch PA approved 07/01/24-06/30/25 10/22/2024 11:45 AM CDT - 10/22/2024 11:59 PM CDT Hospital Encounter [facility] [place] [facility] Advanced Medicine [address] [place] [address] Yi Porter MD Chronic low back pain [...] on file Legal 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 Gender Identity Male 07/11/2021 8:22 AM GAS LEAK INSPECTOR HELPER Sexual Orientation Straight 07/11/2021 8: 22 AM GAS LEAK INSPECTOR HELPER Obstetrics History Last Filed Vital Signs Vital [...] as needed Medical Devices Implanted Type Area Tallier Device Identifier Shelf Expiration Date Model / Serial / Lot dooyoo Vg-[id number] Vascu-Guard 8x.8cm Peripheral Patch Vascular Bovine Pericardium - [id number] - [id number] Implanted:Qty: 1 on 12/17/2018 by Renny Page MD PhD at [facility] Graft Right: Neck Monsivais [employer] Henok 07/23/2023 VG-0108N / [id number] / [id number] Spr [employer] System Sprint Percutaneous Electrical Nerve Stimulation 3317-2823 - [id number] Implanted:Qty: 1 on 07/10/2022 by Yi Porter MD at [facility] Stimulator Bilatera l: Back [employer] 05/01/2023 [id number] / / [id number] Procedures Procedure Name Priority Date/Time Associated [...] only and have not been reviewed by [facility]. There will be no report generated by a [facility] Radiologist. Narrative RAD_PACS_[facility] - 11/03/2024 2:48 PM [...] in the abdomen or pelvis. 2. Patent msqph-exud-myutawd bypass. 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 The [place] left common iliac artery is occluded with reconstitution of the [place] left internal and external iliac via collateral [...] and without evidence of significant stenosis. The [place] left common iliac artery is occluded with reconstitution of the [place] left internal and external iliac via collateral [...] in the abdomen or pelvis. 2. Patent hpurm-gaix-loncfvw bypass. 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 MEDICARE [facility] [employer] HMO/PPO Address: [address] [place] [address] MEDICARE AETNA MEDICARE Advance Directives For more information, please contact: [phone] Documents on File Type Date Recorded Patient Leases And Land Supervisor Expl anation ADVANCE DIRECTIVE 12/22/2018 1:17 PM ED MCCONNELL * Full Code (Latest Code Status on File) Date Activated Date Inactivated Comments 12/17/2018 7:16 PM 12/18/2018 4:46 PM Care Teams Airline Stewardess Relationship Specialty Start Date End Date Zacarias Gutierrez, DO PCP - General 12/05/11 Renny Page MD PhD Surgeon Vascular Surgery 12/18/18
--- OUTSIDE RECORDS SUMMARY | 2024-12-08 15:17 | XMS_ITS | CONTINUITY OF CARE DOCUMENT ---
Author Name angela miller Address Unknown Organization [facility] Address [address] [place] [address] [address] [place] [address] Phone [phone] Care Team Providers Care Barrelhead Inspector Name Role Phone angela miller Unavailable Unavailable INSURANCE PROVIDERS Payer name Policy type / Coverage type [place] red republican ID [facility] [id number]
--- OUTSIDE RECORDS SUMMARY | 2024-12-08 15:17 | XMS_ITS | Clinical Summary ---
Author Organization [facility] [employer] Address [address] [place] [address] Care Team Providers Care Roll On Worker Name Role Phone Zacarias Gutierrez DO Primary Care Provider [phone] Source Comments [facility] [employer],non-owned Affiliates and Associated Physician Practices is amultiple site organization consisting of ambulatory clinics and hospital sitesin [place], [place], [place] and [place]. This disclosure is being madepursuant to the Care Everywhere program and may not contain all information available regarding this patient. Last updated 18.[facility] [employer] Allergies No known active allergies Medications * [...] on file Legal Sex Male 5:27 PM ADVANCED PRACTICE NURSE Gender Identity Not on file Sexual Orientation Not on file Last Filed Vital Signs Vital Sign Reading Time Taken Comments Blood Pressure 152/83 07/08/2017 1:33 PM ADVANCED PRACTICE NURSE Pulse 103 07/08/2017 1:33 PM ADVANCED PRACTICE NURSE Temperature 36.8 C (98.2 F) 02/26/2017 12:04 PM CDT Respiratory Rate 18 02/26/2017 8:30 PM CDT Oxygen Saturation 100% 07/08/2017 1:33 PM ADVANCED PRACTICE NURSE Inhaled Oxygen Concentration - - Weight 76 kg (167 lb 9.6 oz) 07/08/2017 1:33 PM ADVANCED PRACTICE NURSE Height 165.1 cm (5' 5) 07/08/2017 1:33 PM ADVANCED PRACTICE NURSE Body Mass Index 27.89 07/08/2017 1:33 PM ADVANCED PRACTICE NURSE Plan of Treatment Health Maintenance Due Date [...] 7 - 26 mg/dL 02/13/2018 3:30 PM [facility] Creatinine 0.9 0.6 - 1.2 mg/dL 02/13/2018 3:30 PM [facility] Sodium 139 136 - 145 mmol/L 02/13/2018 3:30 PM [facility] Potassium 4.1 3.5 - 4.5 mmol/L 02/13/2018 3:30 PM [facility] Chloride 104 98 - 107 mmol/L 02/13/2018 3:30 PM [facility] CO2 28 22 - 29 mmol/L 02/13/2018 3:30 PM [facility] Glucose 99 70 - 115 mg/dL 02/13/2018 3:30 PM [facility] Calcium 9.7 8.4 - 10.2 mg/dL 02/13/2018 3:30 PM [facility] Protein Total 7.1 6.0 - 8.3 g/dL 02/13/2018 3:30 PM [facility] Albumin 3.7 3.4 - 5.0 g/dL 02/13/2018 3:30 PM [facility] Bilirubin Total 0.3 0.2 - 1.2 mg/dL 02/13/2018 3:30 PM [facility] Alkaline Phosphatase 136 40 - 150 Units/L 02/13/2018 3:30 PM [facility] ALT 20 0 - 55 Units/L 02/13/2018 3:30 PM [facility] AST 22 5 - 34 Units/L 02/13/2018 3:30 PM [facility] Anion Gap 11 8 - 18 02/13/2018 3:30 PM [facility] BUN/Creatinine Ratio 13 7 - 23 02/13/2018 3:30 PM [facility] Osmolality Calculated 288 270 - 300 mOsm/kg 02/13/2018 3:30 PM [facility] Albumin/Globulin Ratio 1.1 1.1 - 2.3 02/13/2018 3:30 PM [facility] eGFR >60 >60 mL/min/1.7 3 m2 02/13/2018 3:30 PM [facility] Blood BLOOD SPECIMEN / Unknown Lab Venipuncture / Unknown 02/13/2018 2:44 PM CDT 02/13/2018 3:05 PM CDT us Justino Bateman MD LAB - CHEMISTRY ORDERABLES Ruchi l Result [address] [phone] * HEPATITIS C ANTIBODY (01/27/2017 8:29 AM CDT) Hepatitis C Antibody Non-react [facility] Comment: Hepatitis C Antibody screen indicates [...] BLES Final Result [facility] [address] [place] [address], [facility] [phone] from Last 3 Months or Most Recently Relevant to Health Maintenance Insurance [employer] HE[employer] Care Teams Roll On Worker Relationship Specialty Start Date End Date Zacarias Gutierrez DO PCP - General 02/19/17
[2024-12-08 16:43] LABS: Add Urine Microscopic? YES; Appearance Urine Clear (Clear); Bacteria Urine None Seen /hpf; Bilirubin Urine 1+ (Negative); Blood Urine Negative (Negative); Color Urine Dark Yellow (Yellow); Glucose Urine UA Negative (Negative); Ketones Urine Trace mg/dL (Negative); Leukocyte Esterase Ur Trace LEU/UL (Negative); Nitrate Urine Negative (Negative); Non Pathogenic Casts 0-2; Protein Urine Trace mg/dL (Negative); RBC Urine 0-2 /hpf (0-2); Specific Grav Ur 1.028 (1.001-1.035); Squamous Epithelial Cell Urine None Seen /hpf (Few); WBC Urine 0-5 /hpf (0-3); pH Urine 5.5 (5.0-9.0)
--- NOTE | 2024-12-08 16:49 | PM.DS ---
DS: Admitting Diagnosis Discharge Date 12/08/2024 Admitting Diagnosis liver cirrhosis, ascites, hyponatremia (chronic), tobacco abuse, HLD, dyspnea DS: Discharge Diagnosis Discharge Diagnosis (1) Liver cirrhosis: Qualifiers: Ascites presence: with ascites Hepatic cirrhosis type: alcoholic cirrhosis Qualified Code(s): K70.31 - Alcoholic cirrhosis of liver with ascites Code(s): K74.60 - Unspecified cirrhosis of liver Status: Acute (2) Ascites: Qualifiers: Ascites type: due to alcoholic cirrhosis Qualified Code(s): K70.31 - Alcoholic cirrhosis of liver with ascites Code(s): R18.8 - Other ascites Status: Acute (3) Hyponatremia: Code(s): E87.1 - Hypo-osmolality and hyponatremia Status: Acute (4) Tobacco abuse: Code(s): Z72.0 - Tobacco use Status: Acute (5) HLD (hyperlipidemia): Qualifiers: Hyperlipidemia type: unspecified Qualified Code(s): E78.5 - Hyperlipidemia, unspecified Code(s): E78.5 - Hyperlipidemia, unspecified Status: Acute (6) Dyspnea: Code(s): R06.00 - Dyspnea, unspecified Status: Acute DS: Summary Hospital Course Reason for hospitalization: Dyspnea related to severe ascites of the abdomen due to liver cirrhosis, paracentesis needed Hospital Course: This is a 64 year old male patient with history of cirrhosis of the liver who is admitted to the hospital due to severe abdominal ascites requiring paracentesis. His outpatient appointment for this procedure is not until December, about a month away. He last had abdomen drained about 3-4 weeks ago. Today he came to ER due to difficulty breathing and inability to eat/drink anything due to severe swelling of the abdomen. Labs showed WBC 12, Sodium chronically low at 132, renal function normal. Patient already takes oral furosemide and spironolactone at home. GI (Dr. Rich) was consulted by the ER and saw patient. The patient underwent Ultrasound guided paracentesis right lower quadrant with 4600 mL removed by vacuum bottle. Dr. Rich instructed patient to keep his furosemide dose the same but increase his spironolactone from 100 mg daily to 150 mg daily. He also ordered IV albumin administration. Patient was feeling better and wanted to be discharged home. His can come to pick him up. Dr. Rich stated that he could be discharged so we proceeded with such. Time spent discussing smoking cessation with patient: more than 10 minutes Status at Discharge Cognitive/behavioral status at discharge: Awake, alert, oriented and extremely pleasant Functional status at discharge: independent ambulation Time Spent with Patient Time attestation: Total time spent providing and/or coordinating discharge services: 35 minutes Exam Narrative: GENERAL: Well-appearing, well-nourished, and in no acute distress. HEAD: Normocephalic, atraumatic. ENT:? Mucous membranes moist. CHEST: Clear to auscultation.? No respiratory distress. HEART: Regular rate and rhythm. ? Normal peripheral pulses. ABDOMEN: Soft, nontender, nondistended, some ascites still palpable but vastly improved EXTREMITIES: Normal range of motion. No peripheral edema. SKIN: Warm dry normal color NEURO: Alert and oriented x3. PSYCH: Normal mood and affect DS: Data Data Completed and Pending Labs on day of discharge: Labs from last 24 hours 12/08/24 12/08/24 12/08/24 16:19 15:14 09:58 WBC 12.0 H RBC 3.96 L Hgb 14.0 Hct 41.6 L MCV 105.1 H MCH 35.4 H MCHC 33.7 RDW 12.6 Plt Count 198 MPV 10.6 H Immature Gran % (Auto) 0.4 Neut % (Auto) 73.9 H Lymph % (Auto) 17.3 L Norman % (Auto) 7.2 Eos % (Auto) 0.6 Baso % (Auto) 0.6 Lymph # (Auto) 2.08 Norman # (Auto) 0.9 H Eos # (Auto) 0.1 Baso # (Auto) 0.1 Abs Immat Gran (auto) 0.05 H Absolute Neuts (auto) 8.9 H Absolute Nucleated RBC 0.000 Band Neutrophils % Not Reportable Nucleated RBC % 0.0 Platelet Estimate Adequate Macrocytosis 1+ Schistocytes None seen PT 15.0 H INR 1.2 APTT 31.9 Sodium 132 L Potassium 4.0 Chloride 101 Carbon Dioxide 23 Anion Gap 8 BUN 16 Creatinine 0.61 L Estim Creat Clear Calc 88 Estimated GFR > 60 Glucose 121 H Calcium 8.9 Total Bilirubin 2.0 H Direct Bilirubin 1.0 H AST 89 H ALT 34 Alkaline Phosphatase 207 H Troponin I < 0.012 Total Protein 6.8 Albumin 3.5 Urine Color Pending Urine Appearance Pending Urine pH Pending Ur Specific [place] Pending Urine Protein Pending Urine Glucose (UA) Pending Urine Ketones Pending Ur Blood (Man) Pending Urine Nitrate Pending Urine Bilirubin Pending Urine Urobilinogen Pending Leukocyte Esterase Rfl Pending Peritoneal Source Pending Peritoneal Color Pending Peritoneal Appearance Pending Peritoneal RBC Pending Periton Nuc Cells Pending Peritoneal Tot Protein Pending Peritoneal Albumin Pending Peritoneal Amylase Pending 12/08/24 09:57 WBC RBC Hgb Hct MCV MCH MCHC RDW Plt Count MPV Immature Gran % (Auto) Neut % (Auto) Lymph % (Auto) Norman % (Auto) Eos % (Auto) Baso % (Auto) Lymph # (Auto) Norman # (Auto) Eos # (Auto) Baso # (Auto) Abs Immat Gran (auto) Absolute Neuts (auto) Absolute Nucleated RBC Band Neutrophils % Nucleated RBC % Platelet Estimate Macrocytosis Schistocytes PT INR APTT Sodium Potassium Chloride Carbon Dioxide Anion Gap BUN Creatinine Estim Creat Clear Calc Estimated GFR Glucose Calcium Total Bilirubin Direct Bilirubin AST ALT Alkaline Phosphatase Troponin I Total Protein Albumin 3.4 L Urine Color Urine Appearance Urine pH Ur Specific [place] Urine Protein Urine Glucose (UA) Urine Ketones Ur Blood (Man) Urine Nitrate Urine Bilirubin Urine Urobilinogen Leukocyte Esterase Rfl Peritoneal Source Peritoneal Color Peritoneal Appearance Peritoneal RBC Periton Nuc Cells Peritoneal Tot Protein Peritoneal Albumin Peritoneal Amylase Procedures/Treatments: Paracentesis, ultrasound guided with 4600 mL fluid removed Imaging Radiologist's impression: Exam Type: CA echo doppler color flow Complete two-dimensional, color flow and Doppler transthoracic echocardiogram is performed. Staff Referring Physician: Alysa Mcdonald Supervisor Gelatin Plant: Shannon Orozco Attending Provider: Gabi Encarnacion MD Summary 1. Complete two-dimensional, color flow and Doppler transthoracic echocardiogram is performed. 2. Left ventricular chamber dimension is normal. 3. Left ventricular systolic function is normal, estimated at 60-65. 4. There is mild concentric increased left ventricular wall thickness. 5. The left ventricular diastolic function is grade I diastolic dysfunction. 6. E/e' 9 is minimally elevated. 7. Left atrial chamber dimension is mildly enlarged. 8. There is mild aortic valve sclerosis. 9. The mitral valve has a mildly calcified annulus. 10. There is mild pulmonic regurgitation. 11. There is small circumferential pericardial effusion. Discharge Plan Discharge Attending physician on discharge: Gabi Encarnacion Discharging Clinician: Lasr Wylie Anticipated Discharge Date/Time: 12/08/24 17:54 Patient Disposition: Home Activity: as tolerated Diet: low sodium Discharge Instructions: Follow with your primary providers Return to ER or call 911 if you have high fever, new/worsening condition. Patient Language: Swedish Stand Alone Forms: General Discharge Information Follow-up/Referrals: Zacarias Gutierrez, DO [Primary Care Provider] - Follow Up with Primary Dr Discharge Medications: New spironolactone [Aldactone] 50 mg Tablet 150 mg PO QAM Qty: 90 0RF Continued furosemide 40 mg tablet 40 mg PO DAILY Qty: 30 3RF aspirin 325 mg tablet 325 mg PO DAILY omega-3 fatty acids [Fish Oil Concentrate] 1,000 mg capsule 1,000 mg PO DAILY multivitamin Tablet 1 tablet PO DAILY lactulose 10 gram/15 mL solution 10 g PO BID Qty: 1200 3RF carvedilol [Coreg] 3.125 mg tablet 3.125 mg PO Q12H Qty: 60 3RF Rx Instructions: must administer with a meal/food esomeprazole magnesium 20 mg capsule,delayed release(DR/EC) See Rx Instructions .ROUTE .COMPLEX Qty: 90 1RF Dose Instruction: TAKE 1 CAPSULE BY MOUTH EVERY DAY Rx Instructions: TAKE 1 CAPSULE BY MOUTH EVERY DAY atorvastatin 20 mg tablet 20 mg PO DAILY Qty: 90 1RF tadalafil 20 mg tablet See Rx Instructions .ROUTE .COMPLEX Qty: 6 2RF Dose Instruction: TAKE 1 TABLET BY MOUTH 30 MINUTES PRIOR TO SEXUAL ACTIVITY NEEDED. NO MORE THAN 1 TAB/36 HOURS Rx Instructions: TAKE 1 TABLET BY MOUTH 30 MINUTES PRIOR TO SEXUAL ACTIVITY NEEDED. NO MORE THAN 1 TAB/36 HOURS Discontinued spironolactone [Aldactone] 50 mg tablet 100 mg PO QAM Qty: 60 2RF Date of admission: 12/08/24 12:00 Primary Care Provider: Zacarias Gutierrez Admitting Provider: Gabi Encarnacion Attending physician on admission: Gabi Encarnacion Condition: Stable Hospitalist MIPS Heart Failure (Exclusion) Patient has history of Heart Transplant or Left Ventricular Assistive Device?: No IF YES, STOP HERE Heart Failure (Qualifier) Patient has current or prior documentation of LVEF less than or equal to 40%, or mod/servere depressed LVSF?: No IF NO, STOP HERE
[2024-12-08 17:05] LABS: Appearance Peritoneal Fluid Hazy (Clear); Color Peritoneal Fluid Yellow (Colorless); Lymphocytes Peritoneal Fluid 36 %; Macrophages Peritoneal Fluid 32 %; Mesothelial Cells Peritoneal Fluid 7 %; Neutrophils Peritoneal Fluid 25 % (0-25); Nucleated Cells Peritoneal Flu 395 /uL (0-500); RBC Peritoneal Fluid < 2000 /uL (0-10000); Source Peritoneal Fluid Peritoneal Fluid
--- NOTE | 2024-12-08 17:31 | P.CONGI_ITS ---
Assessment and Plan Assessment and plan (1) Liver cirrhosis: Qualifiers: Ascites presence: with ascites Hepatic cirrhosis type: alcoholic cirrhosis Qualified Code(s): K70.31 - Alcoholic cirrhosis of liver with ascites Code(s): K74.60 - Unspecified cirrhosis of liver Status: Acute Assessment and Plan: Although only 4600 mL of ascitic fluid was removed (below the 5000 mL threshold for routine albumin replacement), we will administer a proportionate dose of albumin prior to discharge. We're increasing his spironolactone to 150 mg daily, keeping Lasix at 40 mg daily. He has been advised on continued follow- up and to consume a bedtime snack to prevent sarcopenia. The patient has already been referred to the Liver Transplantation Service at [facility] by his primary care physician (2) Ascites: Code(s): R18.8 - Other ascites Status: Acute GI Consult Note Consult date/time: 12/08/24 17:31 Reason for consult: Tense ascites HPI: Jp Boudreaux is a 64 year old male with a diagnosis of alcohol-induced cirrhosis, recently seen in our hospital where he got a paracentesis of 2300 cc on 11/17. He has been noticing increased abdominal girth and progressive shortness of breath due to accumulation of ascites again and was taken to the emergency room. At arrival, he was noticed to have significant ascites and the following labs: White count 12, hemoglobin 14, platelet count 198, INR 1.2, sodium 132, potassium 4.0, creatinine 0.61, bilirubin 2.0, AST 89, ALT 34, alk- phos 207, albumin 3.5. Today 4300 cc of clear fluid were drained. PMN count ruled out spontaneous bacterial peritonitis. he denies fever, respiratory symptoms or altered mental status. He states he has been compliant with low-sodium diet and was taking daily spironolactone 100 mg q.d. plus Lasix 40 mg q.d.. Review of Systems 2 Review of Systems: All systems reviewed & are unremarkable except as noted in HPI and below PMFSH Past Medical History Medical History (Updated 12/08/24 @ 15:48 by Alysa Mcdonald APRN) Situational anxiety Screening PSA (prostate specific antigen) Phantom limb pain Exposure to heavy metals Encounter for smoking cessation counseling Chronic pain disorder Alcoholic liver failure Above knee amputation of right lower extremity Left carotid artery stenosis Chronic pain PAD (peripheral artery disease) Leukocytosis HTN (hypertension) PVD (peripheral vascular disease) AAA (abdominal aortic aneurysm) Osteoarthritis MRSA (methicillin resistant Staphylococcus aureus) Degenerative arthritis of left knee Hypogonadism History of colon polyps GERD (gastroesophageal reflux disease) HLD (hyperlipidemia) Dystonia of right hand CTS (carpal tunnel syndrome) Bursitis Situational anxiety Surgical History Surgical History H/O colonoscopy with polypectomy 2018 S/P arthroscopic surgery of left knee 2013 History of carpal tunnel release right wrist H/O mjsch-bkeyh-huuhkru bypass 05/24/2010 Carotid artery disorder surgery 2019, Right Family History Family History Mother Family history of cardiovascular disease Heart disease Social History Social History Smoking packs per day: 1 Smoking cigarettes per day: 20.0 Smoking status: Current every day smoker Alcohol intake: former Alcohol use details: Last used 11/16 Substance use: current Substance use type: marijuana Other substance usage details: In form of oil Do You Feel Safe in your Home?: Yes Lack of Transportation: No Lack of Food: Never True Current Housing: I Have Housing Concerned About Future Housing: No Difficulty Paying Gas/Electric Bills: No Difficulty Paying for Meds: No Currently Unemployed: No Education: High School Diploma/GED Difficulty w/ Childcare or Family Care: No Living arrangements: with family Spiritual care concerns: No Meds Home Medications and Allergies Home Medications ?Medication ?Instructions ?Recorded ?Confirmed ?Type aspirin 325 mg tablet 325 mg PO DAILY 10/07/19 12/08/24 History multivitamin 1 tablet PO DAILY 10/07/19 12/08/24 History omega-3 fatty acids 1,000 mg 1,000 mg PO DAILY 10/07/19 12/08/24 History capsule (Fish Oil Concentrate) esomeprazole magnesium 20 mg See Rx Instructions .Route 11/09/24 12/08/24 Rx capsule,delayed release .COMPLEX #90 caps atorvastatin 20 mg tablet 20 mg PO DAILY #90 tabs 11/24/24 12/08/24 Rx tadalafil 20 mg tablet See Rx Instructions .Route 11/24/24 12/08/24 Rx .COMPLEX #6 tabs furosemide 40 mg tablet 40 mg PO DAILY #30 tabs 11/30/24 12/08/24 Rx spironolactone 50 mg tablet 100 mg (2 x 50 mg) PO QAM #60 tabs 11/30/24 12/08/24 Rx (Aldactone) carvedilol 3.125 mg tablet (Coreg) 3.125 mg PO Q12H #60 tabs 12/01/24 12/08/24 Rx lactulose 10 gram/15 mL oral 10 g (15 mL) PO BID #1,200 mL 12/01/24 12/08/24 Rx solution Allergies Allergy/AdvReac Type Severity Reaction Status Date / Time No Known Allergies Allergy Verified 12/08/24 13:20 Vital Signs Vital Signs - 24 hr 12/08/24 09:04 12/08/24 09:14 12/08/24 09:44 Temperature 98.4 F Pulse Rate 84 74 Respiratory Rate 16 24 H 19 Blood Pressure 134/59 L Pulse Oximetry 99 98 Oxygen Delivery 12/08/24 09:45 12/08/24 09:45 12/08/24 10:00 Temperature Pulse Rate 76 75 80 Respiratory Rate 30 H 15 Blood Pressure Pulse Oximetry 96 Oxygen Delivery 12/08/24 10:15 12/08/24 10:17 12/08/24 10:25 Temperature Pulse Rate 81 79 74 Respiratory Rate 32 H 32 H 24 H Blood Pressure 99/46 L Pulse Oximetry 96 95 Oxygen Delivery 12/08/24 10:31 12/08/24 10:47 12/08/24 10:48 Temperature Pulse Rate 75 80 82 Respiratory Rate 29 H 24 H 32 H Blood Pressure 128/81 130/60 Pulse Oximetry 100 Oxygen Delivery 12/08/24 11:00 12/08/24 11:02 12/08/24 11:15 Temperature Pulse Rate 79 79 83 Respiratory Rate 24 H 16 21 H Blood Pressure 130/74 Pulse Oximetry Oxygen Delivery 12/08/24 11:16 12/08/24 11:30 12/08/24 11:32 Temperature Pulse Rate 83 88 Respiratory Rate 24 H 28 H Blood Pressure 136/73 145/79 H Pulse Oximetry Oxygen Delivery 12/08/24 13:31 12/08/24 16:00 12/08/24 16:26 Temperature 97.4 F L Pulse Rate 92 80 Respiratory Rate 18 Blood Pressure 126/67 Pulse Oximetry 97 Oxygen Delivery Room Air Exam 2 Narrative: Alert and oriented x3, coherent. Anicteric. Chest and lungs: Clear to auscultation. Abdomen: Soft, nontender, no organomegaly. Extremities: 2+ pitting edema bilaterally. Neurologically intact. Results Labs 12/08/24 09:58 12/08/24 09:58 Labs: Short CBC 12/08/24 Range/Units 09:58 WBC 12.0 H (4.5-10.0) K/mm3 Hgb 14.0 (14.0-18.0) g/dL Hct 41.6 L (42.0-52.0) % Plt Count 198 (150-375) k/mm3 BMP 12/08/24 09:58 Sodium 132 L Potassium 4.0 Chloride 101 Carbon Dioxide 23 BUN 16 Creatinine 0.61 L Glucose 121 H Calcium 8.9 Cardiac Enzymes 12/08/24 Range/Units 09:58 Troponin I < 0.012 (0.000-0.034) ng/mL Liver Function 12/08/24 12/08/24 Range/Units 09:57 09:58 Total Bilirubin 2.0 H (0.2-1.3) mg/dL Direct Bilirubin 1.0 H (0-0.3) mg/dL AST 89 H (17-59) U/L ALT 34 (6-50) U/L Alkaline Phosphatase 207 H (38-126) U/L Albumin 3.4 L 3.5 (3.5-5.1) g/dL Urine 12/08/24 Range/Units 16:19 Urine Color Dark yellow (Yellow) Urine Appearance Clear (Clear) Urine pH 5.5 (5.0-9.0) Ur Specific [place] 1.028 (1.001-1.035) Urine Protein Trace (Negative) mg/dL Urine Glucose (UA) Negative (Negative) mg/dL
[2024-12-08] MEDS: ALBUMIN HUMAN 25% 25 GM/100 ML 100 ML IVPB (17:43)
[2024-12-12 14:43] LABS: Total Protein Peritoneal Fluid <3.0 g/dL
== END 2024-12-08 19:31 | disposition home or self-care (01) ==
LOC: ANHED 09:44 → ANH3MED 12:53
PROVIDERS: Admitting Provider Family Medicine; Emergency Provider Nurse Practitioner Family; PCP Internal Medicine; Visit Provider Family Medicine
DX: K70.31 Alcoholic cirrhosis of liver with ascites (principal); K70.40 Alcoholic hepatic failure without coma; F10.11 Alcohol abuse, in remission; E87.1 Hypo-osmolality and hyponatremia; R06.00 Dyspnea, unspecified; F17.200 Nicotine dependence, unspecified, uncomplicated; E78.5 Hyperlipidemia, unspecified; I10 Essential (primary) hypertension; F41.8 Other specified anxiety disorders; I73.9 Peripheral vascular disease, unspecified; K21.9 Gastro-esophageal reflux disease without esophagitis; M19.90 Unspecified osteoarthritis, unspecified site; G89.29 Other chronic pain; G54.6 Phantom limb syndrome with pain; Z89.611 Acquired absence of right leg above knee; Z79.82 Long term (current) use of aspirin; Z79.899 Other long term (current) drug therapy; Z98.890 Other specified postprocedural states
CPT/HCPCS: 36415; 49083; 71046; 76705; 80053; 81001; 82040; 82042; 82150; 82248; 84157; 84484; 85025; 85610; 85730; 89051; 93005; 93306; 94640; 99285; G0378; P9047

== ENCOUNTER 2025-02-03 10:59 | Outpatient (CLI) | payer MEDICARE, SELFPAY ==
--- OUTSIDE RECORDS SUMMARY | 2025-02-03 11:45 | XMS_ITS | Clinical Summary ---
Author Organization [facility] Address [address] [address] Care Team Providers Care Photo Manager Name Role Phone Zacarias Gutierrez DO Primary Care Provider [phone] Renny Page MD PhD Unavailable [phone] Allergies Active Allergy Reactions Criticality Noted Date Comments No Known Allergies Other (See comments) Low Reaction: Medications amLODIPine (NORVASC) 10 mg tabletIndicatio ns:hypertension Take 1 tablet (10 mg total) by mouth every morning 09/24/19 19 Active atorvastatin (LIPITOR) 20 mg tabletIndicatio ns:hyperlipidem ia Take 1 tablet (20 mg total) by mouth every morning 07/18/19 19 Active multivitamin tabletIndicatio ns:Vitamin Deficiency Prevention Take 1 tablet by mouth every morning 03/14/20 17 Active BYSTOLIC 20 mg tabletIndicatio ns:hypertension Take 1 tablet (20 mg total) by mouth every morning 10/13/19 19 Active CIALIS 20 mg tabletIndicatio ns:Erectile Dysfunction Take 1 tablet (20 mg total) by mouth daily as needed 10/01/19 19 Active omega-3 fatty acids-fish oil 300-1,000 mg capsuleIndicati ons:supplement Take 2 capsules (2 g total) by mouth every morning Active aspirin 325 mg tablet Take 1 tablet (325 mg total) by mouth daily Active albuterol HFA (PROVENTIL HFA,VENTOLIN HFA,PROAIR HFA) 90 mcg/actuation inhaler INHALE 1 PUFF BY MOUTH EVERY 4 HOURS NEEDED FOR SHORTNESS OF BREATH OR WHEEZING 02/20/[address] (NexIUM) 20 mg capsule Take by mouth daily 02/06/20 22 Active lidocaine (LIDODERM) 5 % Place 1 patch on the skin daily for 12 hours Remove & discard patch within 12 hours or as directed by . 30 patch 3 10/23/19 25 Active baclofen (LIORESAL) 5 mg tablet TAKE 1 TABLET BY MOUTH THREE TIMES A DAY 90 tablet 2 02/02/20 25 Active baclofen (LIORESAL) 5 mg tablet Take 1 tablet (5 mg total) by mouth 3 (three) times a day 90 tablet 1 08/27/19 25 025 Discontinued Active Problems Problem Noted Date Diagnosed Date [...] - 11/03/2024 11:59 PM CDT Hospital Encounter [facility]) [address] [place] [address] Discharge Disposition: Discharge to home or self [...] on file Legal Sex Male 2:20 AM CAREER DEVELOPMENT CONSULTANT Gender Identity Male 07/11/2021 8:22 AM CAREER DEVELOPMENT CONSULTANT Sexual Orientation Straight 07/11/2021 8: 22 AM CAREER DEVELOPMENT CONSULTANT Obstetrics History Last Filed Vital Signs [...] Vaccine (2 - season) 03/01/202410/2020 Influenza Vaccine (#1) 2025 04/16/2019 Colon Cancer Screening-Colonoscopy 09/19/20272017 Colon Cancer Screening-CT [...] as needed Medical Devices Implanted Type Area Professor Of Forestry Device Identifier Shelf Expiration Date Model / Serial / Lot [employer]als Vg-[id number] Vascu-Guard 8x.8cm Peripheral Patch Vascular Bovine Pericardium - [id number] - [id number] Implanted:Qty: 1 on 12/17/2018 by Renny Page MD PhD at [facility] Graft Right: Neck [employer]ok 07/23/2023 VG-[id number] / [id number] / [id number] [employer] System Sprint Percutaneous Electrical Nerve Stimulation 0127-1260 - [id number] Implanted:Qty: 1 on 07/10/2022 by Yi Porter MD at [facility] Stimulator Miguelina l: Back [employer] 05/01/2023 [id number] / / [id number] 22 Procedures Procedure Name Priority Date/Time Associated [...] only and have not been reviewed by [facility] Radiology. There will be no report generated by a [facility] Radiologist. Narrative [facility]_PACS[facility] - [...] in the abdomen or pelvis. 2. Patent tlynt-lsfi-meqfzef bypass. 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 The [place] left common iliac artery is occluded with reconstitution of the [place] left internal and external iliac via collateral [...] and without evidence of significant stenosis. The [place] left common iliac artery is occluded with reconstitution of the [place] left internal and external iliac via collateral [...] in the abdomen or pelvis. 2. Patent nkaay-ztto-opcxszf bypass. 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 3. Morphologic liver changes suggesting underlying chronic liver disease. Electronically signed by: Justice Mays M.D. us Renny Page MD PhD IMG CT PROCEDURES Ruchi l Result * COLONOSCOPY REPORT (09/18/2017) Anatomical Region Laterality Modality Other us Provider Scanning GI PROCEDURE ORDERABLES Final Result from Last 3 Months or Most Recently Relevant to Health Maintenance Insurance AETNA [facility]IC[facility] Address: [address] [place] [address] [facility] MEDICARE COUNT INCLUDES THE [facility] MEDICARE Advance Directives For more information, please contact: [phone] Documents on File Type Date Recorded Patient Package Center Supervisor Expl anation ADVANCE DIRECTIVE 12/22/2018 1:17 PM ED MCCONNELL * Full Code (Latest Code Status on File) Date Activated Date Inactivated Comments 12/17/2018 7:16 PM 12/18/2018 4:46 PM Care Teams Photo Manager Relationship Specialty Start Date End Date Zacarias Gutierrez DO PCP - General 12/05/11 Renny Page MD PhD Surgeon Vascular Surgery 12/18/18
--- OUTSIDE RECORDS SUMMARY | 2025-02-03 11:45 | XMS_ITS | Encounter Summary ---
Author Organization [facility] Healthcare Address [address] [place] [address] Care Team Providers Care Mine Deputy Name Role Phone Zacarias Gutierrez DO Primary Care Provider [phone] Renny Page MD PhD Unavailable [phone] Encounter Details Date Type Department Care Team (Late st Contact Info) Description 05/27/2023 Telephone [facility] [place] [facility] [address] [facility] [address] [place] [address] Yi Porter MD [address] [address] [place], [place] [id number] Social History Tobacco Use Types Packs/Day Years [...] on file Legal Sex Male 2:20 AM LIFE ENRICHMENT ASSISTANT Gender Identity Male 07/11/2021 8:22 AM LIFE ENRICHMENT ASSISTANT Sexual Orientation Straight 07/11/2021 8: 22 AM LIFE ENRICHMENT ASSISTANT documented as of this encounter Functional [...] on filedocumented in this encounter Care Teams Mine Deputy Relationship Specialty Start Date End Date Zacarias Gutierrez DO PCP - General 12/05/11 Renny Page MD PhD Surgeon Vascular Surgery 12/18/18 documented as of this encounter
--- OUTSIDE RECORDS SUMMARY | 2025-02-03 11:45 | XMS_ITS | Clinical Summary ---
Author Organization [facility] Address [address] [place] [address] Care Team Providers Care Sequins Stringer Name Role Phone Zacarias Gutierrez DO Primary Care Provider [phone] Source Comments [facility],non-owned Affiliates and Associated Physician Practices is amultiple site organization consisting of ambulatory clinics and hospital sitesin [place], [place], [place] and [place]. This disclosure is being madepursuant to the Care Everywhere program and may not contain all information available regarding this patient. Last updated 18.[facility] Allergies No known active allergies Medications * [...] on file Legal Sex Male 5:27 PM V BELT BUILDER Gender Identity Not on file Sexual Orientation Not on file Last Filed Vital Signs Vital Sign Reading Time Taken Comments Blood Pressure 152/83 07/08/2017 1:33 PM V BELT BUILDER Pulse 103 07/08/2017 1:33 PM V BELT BUILDER Temperature 36.8 C (98.2 F) 02/26/2017 12:04 PM CDT Respiratory Rate 18 02/26/2017 8:30 PM CDT Oxygen Saturation 100% 07/08/2017 1:33 PM V BELT BUILDER Inhaled Oxygen Concentration - - Weight 76 kg (167 lb 9.6 oz) 07/08/2017 1:33 PM V BELT BUILDER Height 165.1 cm (5' 5) 07/08/2017 1:33 PM V BELT BUILDER Body Mass Index 27.89 07/08/2017 1:33 PM V BELT BUILDER Plan of Treatment Upcoming Encounters Date Type Department Care Team (Late st Contact Info) Description 02/24/2025 10:00 AM CDT Office Visit [facility] [address] [place] [address] Health Maintenance Due Date Last Done Comments [...] 7 - 26 mg/dL 02/13/2018 3:30 PM [facility] Creatinine 0.9 0.6 - 1.2 mg/dL 02/13/2018 3:30 PM [facility] Sodium 139 136 - 145 mmol/L 02/13/2018 3:30 PM [facility] Potassium 4.1 3.5 - 4.5 mmol/L 02/13/2018 3:30 PM [facility] Chloride 104 98 - 107 mmol/L 02/13/2018 3:30 PM [facility] CO2 28 22 - 29 mmol/L 02/13/2018 3:30 PM [facility] Glucose 99 70 - 115 mg/dL 02/13/2018 3:30 PM [facility] Calcium 9.7 8.4 - 10.2 mg/dL 02/13/2018 3:30 PM CDT [facility] Protein Total 7.1 6.0 - 8.3 g/dL 02/13/2018 3:30 PM [facility] Albumin 3.7 3.4 - 5.0 g/dL 02/13/2018 3:30 PM [facility] Bilirubin Total 0.3 0.2 - 1.2 mg/dL 02/13/2018 3:30 PM [facility] Alkaline Phosphatase 136 40 - 150 Units/L 02/13/2018 3:30 PM [facility] ALT 20 0 - 55 Units/L 02/13/2018 3:30 PM [facility] AST 22 5 - 34 Units/L 02/13/2018 3:30 PM [facility] Anion Gap 11 8 - 18 02/13/2018 3:30 PM [facility] BUN/Creatinine Ratio 13 7 - 23 02/13/2018 3:30 PM [facility] Osmolality Calculated 288 270 - 300 mOsm/kg 02/13/2018 3:30 PM [facility] Albumin/Globulin Ratio 1.1 1.1 - 2.3 02/13/2018 3:30 PM [facility] eGFR >60 >60 mL/min/1.7 3 m2 02/13/2018 3:30 PM [facility] Blood BLOOD SPECIMEN / Unknown Lab Venipuncture / Unknown 02/13/2018 2:44 PM CDT 02/13/2018 3:05 PM CDT us Justino Bateman MD LAB - CHEMISTRY ORDERABLES Ruchi lockett Result [facility] [address] [phone] * HEPATITIS C ANTIBODY (01/27/2017 8:29 AM CDT) Pathologist [facility] Hepatitis C Antibody Non-react [facility] Comment: Hepatitis C Antibody screen [...] LAB - CHEMISTRY ORDERA BLES Final Result [facility] [address] [place] [address], [facility] [phone] from Last 3 Months or Most Recently Relevant to Health Maintenance Insurance HE[employer] HE[employer] Care Teams Sequins Stringer Relationship Specialty Start Date End Date Zacarias Gutierrez DO PCP - General 02/19/17
--- OUTSIDE RECORDS SUMMARY | 2025-02-03 11:45 | XMS_ITS | Patient Health Record ---
Author Organization [facility] [employer] Address [address] [place] [address] Care Team Providers Care English Tutor Name Role Phone Zacarias Gutierrez DO Primary Care Provider Daivn Brown Unavailable [phone] AndiMelly Unavailable [phone] Reason For Referral No Information Medications Medication SIG (Take, Route, Frequency, Duration) Notes Start Date End Date Status Esomeprazole Magnesium 20 mg Oral 05/16/2022 Active FLUZONE QUAD 2381-1220 (PF) 60 MCG (15 MCG X 4)/0.5 ML IM SYRINGE *Reorder from [employer] for eRx and Interaction Alerts* 05/16/2022 Not-Taking TADALAFIL 20 MG TABLET *[facility] for eRx and Interaction Alerts* 05/16/2022 Active Pantoprazole Sodium 40 MG Oral 05/16/2022 Not-Taking NEBIVOLOL 20 MG TABLET *[facility] for eRx and Interaction Alerts* 05/16/2022 Active Fluticasone Propionate Diskus 50 MCG/ACT Inhalation *Reorder from [facility] for eRx and Interaction Alerts* 05/16/2022 Not-Taking DULoxetine HCl 30 MG Oral 05/16/2022 Not-Taking ProAir HFA 108 (90 Base) MCG/ACT Inhalation 05/16/2022 Active Baclofen 5 mg ORAL 05/16/2022 Activ e Nicotine 21 MG/24HR Transdermal 05/16/2022 Not-Taking Atorvastatin Calcium 20 MG Oral 05/16/2022 Active Folic Acid 1 MG Oral 05/16/2022 Not -Taking Vitamin B-1 100 MG Oral 05/16/2022 Not-Taking Losartan Potassium 25 MG Oral 05/16/2022 Not-Taking OLANZapine 15 MG Oral 05/16/2022 No t-Taking DULoxetine HCl 60 MG Oral 05/16/2022 Not-Taking amLODIPine Besylate 10 MG Oral 05/16/2022 Active Immunizations Vaccine Route [...] (F33.0) Active confirmed Problem Generalized anxiety disorder (83950586) Generalized anxiety disorder (F41.1) Active confirmed Encounters Encounter Location Date Provider Diagnosis [facility] [employer] [facility] [address] [facility] [address] [place] [address] 06/18/2024 Melly Adni Major depressive disorder, recurrent, mild F33.0 and Generalized anxiety disorder F41.1 [facility] [place] [address] [address] 07/03/2024 Melly Andi Major depressive disorder, recurrent, mild F33.0 and Generalized anxiety disorder F41.1 [facility] [place] [address] [facility] [address] [place] [address] 07/17/2024 Melly Andi Major depressive disorder, recurrent, mild F33.0 and Generalized anxiety disorder F41.1 [facility] [place] [address] [place] [address] 07/24/2024 Melly Andi Major depressive disorder, recurrent, mild F33.0 and Generalized anxiety disorder F41.1 [facility] [place] [address] [place] [address] 08/03/2024 Melly Andi Major depressive disorder, recurrent, mild F33.0 and Generalized anxiety disorder F41.1 [facility] [place] [address] [facility] [address] [place] [address] 08/10/2024 Melly Andi Major depressive disorder, recurrent, mild F33.0 and Generalized anxiety disorder F41.[address] [facility] [address] [place] [address] 08/24/2024 Melly Andi Major depressive disorder, recurrent, mild F33.0 and Generalized anxiety disorder F41.1 [facility], [address] [address] 09/15/2024 Melly Andi [place] [address] [address] 09/25/2024 Melly Andi Encounter for screening for depression Z13.31 ; Major depressive disorder, recurrent, mild F33.0 and Generalized anxiety disorder F41.1 [facility], [address] [address] 10/15/2024 Melly Andi Major depressive disorder, recurrent, mild F33.0 ; Generalized anxiety disorder F41.1 and Encounter for screening for depression Z13.31 [address] [address] 11/04/2024 Melly Andi Major depressive disorder, recurrent, mild F33.0 ; Generalized anxiety disorder F41.1 ; Encounter for screening for depression Z13.31 and Nicotine use Z72.[address] [address] 12/03/2024 Melly Andi Major depressive disorder, recurrent, mild F33.0 ; Generalized anxiety disorder F41.1 ; Nicotine use Z72.0 and Encounter for screening for depression Z13.31 [place] [address] [address] 12/21/2024 Melly Andi Major depressive disorder, recurrent, mild F33.0 ; Generalized anxiety disorder F41.1 ; Nicotine use Z72.0 and Encounter for screening for depression Z13.31 [facility], [place] [address] [facility] [address] [place] [address] 01/05/2025 Melly Andi Major depressive disorder, recurrent, mild F33.0 ; Generalized anxiety disorder F41.1 ; Nicotine use Z72.0 and Encounter for screening for depression Z13.31 [facility] [employer] [facility] [address] [place] [address] 01/19/2025 Melly Escamilla Major depressive disorder, recurrent, mild F33.0 ; Generalized anxiety disorder F41.1 and Nicotine use Z72.0 [facility] [employer] [facility] [address] [place] [address] 06/16/2024 Davin Barajas Assessments Encounter Date Diagnosis [...] His step father passed in 2022 on [employer]. client just finished taking care of his father's estate. Client only recently found out who is biological father is, and he in 1988. Client has some college but did not finish. 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 Client is not currently taking any [...] His step father passed in 2022 on [employer]. client just finished taking care of his father's estate. Client only recently found out who is biological father is, and he in 1988. Client has some college but did not finish. 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 Client is not currently taking any [...] for PTSD but does experience some symptoms. 08/03/2024 Major depressive disorder, recurrent, mild (ICD-10 [...] 12/03/2024 Generalized anxiety disorder (ICD-10 - F41.1) 01/05/2025 Major depressive disorder, recurrent, mild (ICD-10 - F33.0) 01/05/2025 Generalized anxiety disorder (ICD-10 - F41.1) 01/19/2025 Major depressive disorder, recurrent, mild (ICD-10 - F33.0) 01/19/2025 Generalized anxiety disorder (ICD-10 - F41.1) 12/21/2024 Major depressive disorder, recurrent, mild (ICD-10 - F33.0) 12/21/2024 Generalized anxiety disorder (ICD-10 - F41.1) 07/24/2024 Major depressive disorder, recurrent, mild (ICD-10 - F33.0) 07/17/2024 Major depressive disorder, recurrent, mild (ICD-10 - F33.0) 07/03/2024 Major depressive disorder, recurrent, mild (ICD-10 - F33.0) 07/03/2024 Generalized anxiety disorder (ICD-10 - F41.1) 07/17/2024 Generalized anxiety disorder (ICD-10 - F41.1) 12/21/2024 Nicotine use (ICD-10 - Z72.0) 07/24/2024 Generalized anxiety disorder (ICD-10 - F41.1) 01/19/2025 Nicotine use (ICD-10 - Z72.0) 12/03/2024 Nicotine use (ICD-10 - Z72.0) 01/05/2025 Nicotine use (ICD-10 - Z72.0) 11/04/2024 Encounter for screening for depression (ICD-10 - Z13.31) 10/15/2024 Generalized anxiety disorder (ICD-10 - F41.1) 09/25/2024 Generalized anxiety disorder (ICD-10 - F41.1) 08/24/2024 Generalized anxiety disorder (ICD-10 - F41.1) 08/10/2024 Generalized anxiety disorder (ICD-10 - F41.1) 08/03/2024 Generalized anxiety disorder (ICD-10 - F41.1) 10/15/2024 Encounter for screening for depression (ICD-10 - Z13.31) 11/04/2024 Nicotine use (ICD-10 - Z72.0) 01/05/2025 Encounter for screening for depression (ICD-10 - Z13.31) 12/03/2024 Encounter for screening for depression (ICD-10 - Z13.31) 12/21/2024 Encounter for screening for depression (ICD-10 [...] His step father passed in 2022 on [employer]. client just finished taking care of his father's estate. Client only recently found out who is biological father is, and he in 1988. Client has some college but did not finish. 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 Client is not currently taking any [...] with others. PHQ= 5 mild STEPHON=11 moderate 01/19/2025 Other Client focused on his relationship with others. Heis very firm that he deserves respect from his kids. This frustrates him more than anything. Therapist actively listened to client and utilized a cognitive behavioral intervention to help client explore strategies to minimize his frustrations. Plan Of Treatment No Information Insurance Providers Payer Name Payer Address Payer Phone Subscriber Number Group Number Insured Name Patient Relationship to Insured Coverage Start Date Coverage End Date [employer] Medicare Supplement [address] [place] [address] [id number] STEVE SIERRA Self - patient is the insured Medical (General) History Medical History History ICD Code Problems: Alcohol abuse Generalized anxiety disorder Moderate recurrent major depression Nicotine dependence with current use , Surgical History Surgery Date(Month/Year) Appendectomy (71934)
== END 2025-02-03 11:00 | disposition home or self-care (01) ==
LOC: ANHAUDASC 11:00
PROVIDERS: PCP Internal Medicine; Visit Provider Otolaryngology
DX: H90.3 Sensorineural hearing loss, bilateral (principal); H93.13 Tinnitus, bilateral; H93.8X2 Other specified disorders of left ear; H73.893 Other specified disorders of tympanic membrane, bilateral
CPT/HCPCS: 92557; 92567

== ENCOUNTER 2025-04-19 11:31 | Outpatient (CLI) | payer MEDICARE, SELFPAY ==
[2025-04-19 13:03] LABS: Hematocrit 46.3 % (42.0-52.0); Hemoglobin 14.9 g/dL (14.0-18.0); Immature Granulocyte Percent A 0.3 % (0-0.5); Immature Platelet Fraction Pct 5.5 % (0.9-11.2); Lymphocytes Absolute Auto 2.32 K/mm3 (0.9-3.2); Mean Corpuscular HGB Conc 32.2 g/dl (32-36); Mean Corpuscular Hemoglobin 30.7 pg (26-34); Mean Corpuscular Volume 95.3 fl (80-100); Nucleated Red Blood Cells Absolute Auto 0.000 K/mm3 (0.0-0.012); Nucleated Red Blood Cells Perc 0.0 % (0.0-0.2); Platelet Count Result 132 k/mm3 (150-375); Red Blood Count 4.86 M/mm3 (4.6-6.20); White Blood Count 11.5 K/mm3 (4.5-10.0)
[2025-04-19 13:08] LABS: Alanine Aminotransferase 41 U/L (6-50); Albumin Level 3.9 g/dL (3.5-5.1); Alkaline Phosphatase 242 U/L (38-126); Anion Gap 6 mmol/L (4-12); Aspartate Amino Transferase 59 U/L (17-59); Bilirubin,Total 0.9 mg/dL (0.2-1.3); Blood Urea Nitrogen 17 mg/dL (9-20); Calcium 9.1 mg/dL (8.4-10.2); Carbon Dioxide 30 mmol/L (22-30); Chloride 102 mmol/L (98-107); Estimated Glomerular Filt Rate > 60; Glucose 113 mg/dL (65-110); Potassium 4.3 mmol/L (3.4-5.0); Sodium 138 mmol/L (137-145); Total Protein 7.6 g/dL (6.3-8.2)
[2025-04-19 13:21] LABS: INR 1.0; Prothrombin Time 13.4 Seconds (11.1-14.7)
[2025-04-19 13:46] LABS: Ferritin 36.10 ng/mL (11.1-264)
== END 2025-04-19 11:32 | disposition home or self-care (01) ==
LOC: ANHGOSHLAB 11:32
PROVIDERS: PCP Internal Medicine; Visit Provider Internal Medicine
DX: R79.0 Abnormal level of blood mineral (principal); K70.40 Alcoholic hepatic failure without coma; K70.31 Alcoholic cirrhosis of liver with ascites
CPT/HCPCS: 36415; 80053; 82728; 85025; 85055; 85610

== ENCOUNTER 2025-05-14 12:47 | Outpatient (CLI) | payer MEDICARE, SELFPAY ==
[2025-05-14 13:59] LABS: Hematocrit 44.1 % (42.0-52.0); Hemoglobin 14.6 g/dL (14.0-18.0); Immature Granulocyte Percent A 0.2 % (0-0.5); Immature Platelet Fraction Pct 4.8 % (0.9-11.2); Lymphocytes Absolute Auto 2.30 K/mm3 (0.9-3.2); Mean Corpuscular HGB Conc 33.1 g/dl (32-36); Mean Corpuscular Hemoglobin 31.3 pg (26-34); Mean Corpuscular Volume 94.4 fl (80-100); Nucleated Red Blood Cells Absolute Auto 0.000 K/mm3 (0.0-0.012); Nucleated Red Blood Cells Perc 0.0 % (0.0-0.2); Platelet Count Result 131 k/mm3 (150-375); Red Blood Count 4.67 M/mm3 (4.6-6.20); White Blood Count 10.3 K/mm3 (4.5-10.0)
[2025-05-14 14:11] LABS: INR 1.1; Prothrombin Time 14.4 Seconds (11.1-14.7)
--- OUTSIDE RECORDS SUMMARY | 2025-05-14 17:04 | XMS_ITS | Encounter Summary ---
Author Organization [facility] Address [address] [place] [address] Care Team Providers Care Liquid Flavor Compounder Name Role Phone Zacarias Gutierrez DO Primary Care Provider [phone] Renny aPge MD PhD Unavailable [phone] Encounter Details Date Type Department Care Team (Late st Contact Info) Description 05/27/2023 Telephone [facility] [address] [facility] [address] [place] [address] Yi Porter MD [address] [place], [place] [id number] Social History Tobacco Use Types Packs/Day Years [...] when you are drinking? 3 or 4 Frequency of Binge Drinking Not on file [...] on file Legal Sex Male 2:20 AM VESSEL BUILDER Gender Identity Male 07/11/2021 8:22 AM VESSEL BUILDER Sexual Orientation Straight 07/11/2021 8: 22 AM VESSEL BUILDER documented as of this encounter Functional Status * Question Answer Date of Assessment Author BP Location Right arm 05/27/2023 1:31 PM VESSEL BUILDER Mulu Arango RN BP Method Automatic 05/27/2023 1:15 PM VESSEL BUILDER Aline Garza RN MAP (mmHg) 147 05/27/2023 1:19 PM VESSEL BUILDER Aline Garza RN * Alcohol Withdrawal BP Hierarchy Answer Date of Assessment Author 59 05/27/2023 12:17 PM VESSEL BUILDER Marian Cain RN * Alcohol Use Question Answer Date of Assessment Author Q1: How often do you have a drink containing alcohol? 4 or more times a week 05/27/2023 12:20 PM VESSEL BUILDER Marian Cain RN Q2: How many drinks containing alcohol do you have on a typical day when you are drinking? 3 or 4 05/27/2023 12:20 PM VESSEL BUILDER Cedric Cain RN documented as of this encounter Plan of Treatment Not on file documented as of this encounter Goals Goal Patient Goal Type Associated Problems Recent Progress Patient-Stated? Author CCM Chronic Pain Care Plan Chronic Care Management On track(04/21 11:11 AM CDT) Rea Araiza RN Note: Problem: Chronic Pain Goals: 1. Minimize further functional decline 2. Maximize quality of life 3. Control pain Strategies: - Activity/exercise program recommendation - Conservative stepwise pain medicine strategy with multi-disciplinary approach - Recommend healthy lifestyle strategies and compensatory methods as needed documented as of this encounter Visit Diagnoses Not on filedocumented in this encounter Care Teams Liquid Flavor Compounder Relationship Specialty Start Date End Date Zacarias Gutierrez DO PCP - General 12/05/11 Renny Page MD PhD Surgeon Vascular Surgery 12/18/18 documented as of this encounter
--- OUTSIDE RECORDS SUMMARY | 2025-05-14 17:05 | XMS_ITS | Clinical Summary ---
Author Organization [facility] Address [address] [place] [address] Care Team Providers Care Ice Maker Name Role Phone Zacarias Gutierrez DO Primary Care Provider [phone] Renny Paeg MD PhD Unavailable [phone] Allergies Active Allergy Reactions Criticality Noted Date Comments No Known Allergies Other (See comments) Low Reaction: Medications atorvastatin (LIPITOR) 20 mg tabletIndicatio ns:hyperlipidem ia [...] capsule Take by mouth daily 2 Active lidocaine (LIDODERM) 5 % Place 1 patch on the skin daily for 12 hours Remove & discard patch within 12 hours or as directed by . 30 patch 3 5 Active baclofen (LIORESAL) 5 mg tablet TAKE 1 TABLET BY MOUTH THREE TIMES A DAY 90 tablet 2 5 Active omega 9-nax-lzp-fish oil (Fish OiL) 1,000 (120-180) mg capsule Take 2 capsules (2,000 mg total) by mouth production estimator before breakfast Active amLODIPine (NORVASC) 10 mg tabletIndicatio ns:hypertension Take 1 tablet (10 mg total) by mouth every morning 9 04/21/20 25 Discontinu ed(Therapy completed) Active Problems Problem Noted Date Diagnosed Date Spondylosis of lumbar region without myelopathy or radiculopathy 01/15/2022 Peripheral neuropathy 01/15/2022 Phantom limb syndrome with pain 01/02/2022 Chronic low back pain 01/02/2022 Carotid stenosis, right 10/15/2018 Impaired functional mobility, balance, gait, and endurance Status post above-knee amputation of right lower extremity Encounters Date Type Department Care Team Description 05/03/2025 11:11 AM BOBBIN COIL WINDER - 05/03/2025 11:59 PM BOBBIN COIL WINDER Hospital Encounter [facility] [address] [place] [address] Yi Porter MD Chronic left shoulder pain Discharge Disposition: Discharge to home or self care 04/21/2025 10:30 AM CDT - 04/21/2025 11:59 PM CDT Hospital Encounter [facility] [address] [place] [address] Advanced Medicine [address] [place] [address] Yi Porter MD Chronic left shoulder pain (Primary Dx) Discharge Disposition: Discharge to home or self [...] History of esophageal reflux - (Added by ISABELLE Conv) Personal history of other di seases of the circulatory system History of peripheral vascul ar disease - (Added by ISABELLE Conv) GERD (gastroesophageal reflux disease) Depression History [...] on file Legal Sex Male 2:20 AM BOBBIN COIL WINDER Gender Identity Male 07/11/2021 8:22 AM BOBBIN COIL WINDER Sexual Orientation Straight 07/11/2021 8: 22 AM BOBBIN COIL WINDER Last Filed Vital Signs Vital Sign Reading Time Taken Comments Blood Pressure 140/80 04/21/2025 10:55 AM CDT 94 Pulse 98 04/21/2025 10:55 AM CDT Temperature 36.4 C (97.5 F) 04/21/2025 10:55 AM CDT Respiratory Rate 22 04/21/2025 10:5 5 AM CDT Oxygen Saturation 95% 04/21/2025 10: 55 AM CDT Inhaled Oxygen Concentration - - Weight 61.1 kg (134 lb 12.8 oz) 025 10:55 AM CDT Height 165.1 cm (5' 5) 04/21/2025 10:5 5 AM CDT Body Mass Index 22.43 04/21/2025 10:55 AM CDT Plan of Treatment Health Maintenance Due Date Last Done Comments Depression Screening 1960 Fall Risk Assessment 1960 Hepatitis C Screening 1960 Prostate Cancer Screening-PSA 1958 DTaP/Tdap/Td Vaccine (1 - Tdap) 1969 Hepatitis B Screening 1976 Pneumococcal vaccine 65+ (1 of 2 - PCV) 1977 Lung Cancer Screening 2008 Zoster Vaccine (1 of 2) 2008 Abdominal Aortic Aneurysm (A AA) Screen 2023 10/15/2018 Well Visit 65+ 2023 Covid-19 Vaccine (4 - 2024-2 6 season) 2025 05/20/2024, 07/13/2021, 09/02/2020 Influenza Vaccine (#1) 2025 , 04/05/2023, 04/27/2022, Additional history exists Colon Cancer Screening-Colonoscopy 09/19/2027 09/18/2017 Colon Cancer Screening-CT Colonography Discontinued 09/18/2017 Colon Cancer Screening-DNA Stool Discontinued 09/19/19 18 Colon Cancer Screening-FIT Discontinued 09/18/2017 Colon Cancer Screening-Sigmoidoscopy Discontinued 09/18/2017 Goals Goal Patient Goal Type Associated Problems [...] as needed Medical Devices Implanted Type Area Behavioral Health Professional Device Identifier Shelf Expiration Date Model / Serial / Lot House Party [id number] Vascu-Guard 8x.8cm Peripheral Patch Vascular [employer]ovine Pericardium - [id number] - [id number] Implanted:Qty: 1 on 12/17/2018 by Renny Page MD PhD at [facility] Graft Right: Neck [facility] [employer] 07/23/2023 [id number] / [id number] / [id number] [employer] System Sprint Percutaneous Electrical Nerve Stimulation [id number] - [id number] Implanted:Qty: 1 on 07/10/2022 by Yi Porter MD at [facility] Medicine Stimulator Bilatera l: Back [employer] 05/01/2023 [id number] / / [id number] Procedures Procedure Name Priority Date/Time Associated Diagnosis Comments XR SHOULDER LEFT 2 OR MORE VIEWS Schedule Routine, Read Routine (OP Routine) 05/03/2025 11:25 AM BOBBIN COIL WINDER Chronic left shoulder pain CTA ABDOMEN PELVIS W WO CONTRAST Schedule Routine, Read Routine (OP Routine) 10/15/2018 10:09 AM CDT Carotid stenosis, right COLONOSCOPY REPORT 09/18/2017 from Last 3 Months or Most Recently Relevant to Health Maintenance Results * X-ray shoulder left 2+ views (05/03/2025 11:25 AM BOBBIN COIL WINDER) Anatomical Region Laterality Modality Upper Extremities, Shoulder Left Comp uted Radiography 05/03/2025 1:44 PM BOBBIN COIL WINDER Impressions 05/03/2025 1:44 PM BOBBIN COIL WINDER 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 Electronically signed by: Ty Rosales MD Narrative 05/03/2025 1:44 PM BOBBIN COIL WINDER EXAMINATION: XR SHOULDER LEFT 2 OR MORE VIEWS HISTORY: Left shoulder pain FINDINGS: No comparison. Alignment is normal. There is no fracture or dislocation. 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 Mild soft tissue swelling. Procedure Note Ty Rosales MD - 05/03/2025 EXAMINATION: XR SHOULDER LEFT 2 OR MORE VIEWS HISTORY: Left shoulder pain FINDINGS: No comparison. Alignment is normal. There is no fracture or dislocation. 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 Mild soft tissue swelling. IMPRESSION: Mild left glenohumeral and mild to moderate left acromioclavicular osteoarthritis. Electronically signed by: Ty Rosales MD Yi Porter MD IMG XR PROCEDURES Final Result * CTA Abdomen Pelvis W WO Contrast (10/15/2018 10:09 AM CDT) Anatomical Region Laterality Modality Body N/A Computed Tomogra phy 10/15/2018 11:1 7 AM CDT Impressions 10/15/2018 11:17 AM CDT 1. No significant arterial stenosis or aneurysmal dilatation in the abdomen or pelvis. 2. Patent yjyty-ssrk-[id number] bypass. 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 The mo[place]gan left common iliac artery is occluded with reconstitution of the mohegan left internal and external iliac via collateral [...] and without evidence of significant stenosis. The mohegan left common iliac artery is occluded with reconstitution of the mo[place] left internal and external iliac via collateral [...] in the abdomen or pelvis. 2. Patent sxclf-jfze-vdmiwvv bypass. 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 at the origin of the mohegan internal/external iliac arteries on the left and [...] Relevant to Health Maintenance Insurance [employer] MEDICARE [employer] [facility] MEDICARE [facility] MEDICARE Advance Directives For more information, please contact: [phone] Documents on File Type Date Recorded Patient Drop Machine Operator Expl anation ADVANCE DIRECTIVE 12/22/2018 1:17 PM ED MCCONNELL * Full Code (Latest Code Status on File) Date Activated Date Inactivated Comments 12/17/2018 7:16 PM 12/18/2018 4:46 PM Care Teams Ice Maker Relationship Specialty Start Date End Date Zacarias Gutierrez DO PCP - General 12/05/11 Renny Page MD PhD Surgeon Vascular Surgery 12/18/18
--- OUTSIDE RECORDS SUMMARY | 2025-05-14 17:05 | XMS_ITS | Clinical Summary ---
Author Organization [facility] Address [address] [place] [address] Care Team Providers Care Inpatient Coder Name Role Phone Zacarias Gutierrez DO Primary Care Provider [phone] Source Comments [facility],non-owned Affiliates and Associated Physician Practices is amultiple site organization consisting of ambulatory clinics and hospital sitesin [place], [place], [place] and [place]. This disclosure is being madepursuant to the Care Everywhere program and may not contain all information available regarding this patient. Last updated 18.[facility] Allergies No known active allergies Medications * Be aware that medications may not be up to date on this document. Alwaysverify current medications with the patient. pantoprazole EC (PROTONIX) 40 MG tablet 4 7 Active Multiple Vitamin (DAILY VITES) TABS Take 1 tablet by mouth DAILY. 30 tablet 5 7 Active tadalafil (CIALIS) 20 MG tablet Take 20 mg by mouth. 7 Active aspirin (ASPIRIN) 325 MG tablet Take 325 mg by mouth DAILY. 7 Active Thiamine HCl 100 MG Take 1 tablet by mouth once daily 30 tablet 11 8 Active Additional Information Patient not taking.Reported on 02/24/2025 folic acid (FOLVITE) 1 MG tablet Take 1 tablet by mouth once daily 30 tablet 3 8 Active atorvastatin (LIPITOR) 20 MG tablet 0 8 Active carvedilol (Coreg) 3.125 MG tablet Take 1 (one) tablet by mouth 2 times daily 5 Active spironolactone (Aldactone) 50 MG tablet Take 3 (three) tablets by mouth every morning 5 Active fish oil/omega-3 fatty acids (Promega;Cardi- Fenton 3) 1000 MG capsule Take 2 (two) capsules by mouth every morning Active lactulose (Chronulac) 10 GM/15ML solution Take 15 mL by mouth once daily 5 Active furosemide (Lasix) 40 MG tablet Take 1 (one) tablet by mouth once daily 5 Active baclofen (Lioresal) 5 MG TABS Take 1 (one) tablet by mouth 3 times daily 5 Active albuterol HFA (Proventil; Ventolin; Proair) 108 (90 Base) MCG/ACT inhaler Inhale 1 (one) puff by mouth 2 times daily 5 Active Active Problems Problem Noted Date Diagnosed Date Alcohol use with alcohol-induced disorder 2016 Alcoholic hepatitis without ascites 01/31/2017 Encounters Date Type Department Care Team Description 03/25/2025 10:59 AM CDT - 03/25/2025 11:59 PM T Hospital Encounter [facility] [address] [place] [address] Andrew Laws MD Discharge Disposition: Home or Self Care 03/25/2025 Travel 02/25/2025 Results Follow-Up [facility] - [address] [phone] Andrew Laws MD Results 02/24/2025 11:19 AM CDT - 02/24/2025 11:59 PM T Hospital Encounter [facility] [address] [place] [address] Discharge Disposition: Home or Self Care 02/24/2025 10:00 AM CDT Office Visit [facility] - [address] [address] Andrew Laws MD Decompensated cirrhosis (HCC) (Primary Dx) 02/24/2025 Travel from Last 3 Months Family History Medical History Relation Name Comments Other - Hepatic/Liver Neg Hx Social History Tobacco Use Types Packs/Day Years Used Date Smoking Tobacco: Every Day Cigarettes Smokeless Tobacco: Never Tobacco Cessation:Ready to Q uit: Not Asked; Counseling Given: Not Answered Alcohol Use Standard Drinks/Week Comments Not Currently 0 (1 standard drink = 0.6 oz pure alcohol) once per week. 2 drinks per occassion. 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 Height 162.6 cm (5' 4) 02/24/2025 9:30 AM CDT Body Mass Index 27.89 07/08/2017 1:33 PM 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 Plan of Treatment Upcoming Encounters Date Type Department Care Team (Late st Contact Info) Description 09/27/2025 9:00 AM CDT Office Visit [facility] [address] [place] [address], [place] [address] Andrew Laws MD [address] [place] [address] [place] [address] Health Maintenance Due Date Last Done Comments COLOGUARD (AGES 45-75) - COLON CA SCREENING 1958 COLON MONITORING 1958 COLONOSCOPY - COLON CA SCREENING 1958 CT COLONOGRAPHY - COLON CA SCREENING 1960 Colorectal Cancer Screening 1958 FIT - COLON CA SCREENING 1958 FLEX SIG - COLON CA SCREENING 1958 DTAP/TDAP/TD VACCINES (1 - Tdap) 1977 PNEUMOCOCCAL VACCINE 50+ (1 of 2 - PCV) 1977 Respiratory Syncytial Virus (RSV) Vaccine Pt: or over 60 yrs (1 - Risk 50-74 years 1-dose series) 2008 ZOSTER VACCINE (1 of 2) 2008 HEPATITIS B VACCINE (1 of 3 - Risk 3-dose series) 2018 AAA SCREENING 2023 DEPRESSION SCREENING 07/01/2024 MEDICARE AWV CALENDAR YEAR 2024 COVID-19 VACCINE ( season) 2025 05/20/2024, 04/27/2022, 07/13/2021, Additional history exists INFLUENZA VACCINE (#1) 2025 , 04/05/2023, 04/27/2022, Additional history exists HEPATITIS C SCREENING Completed 01/27/2017 HIB VACCINE Aged Out No longer eligi [...] on patient's age to complete this topic Goals Goal Patient Goal Type Associated Problems Recent Progress Patient-Stated? Author Medication Management General Chantell Voss, RN Note: Expected end date: ONGOING Interventions: Take all medications as prescribed Let your doctor know right away about any changes in your medications Make sure to request a refill of your medication at least one week prior to your last dose Procedures Procedure Name Priority Date/Time Associated Diagnosis Comments US ABDOMEN LIMITED Routine 03/25/2025 11 :34 AM CDT Decompensated cirrhosis (HCC) PT-INR Routine 02/24/2025 11:28 AM CDT Decompensated cirrhosis (HCC) HEPATIC FUNCTION PANEL Routine 02/24/2025 11:28 AM CDT Decompensated cirrhosis (HCC) BASIC METABOLIC PANEL (CALCIUM TOTAL) Routine 02/24/2025 11:28 AM CDT Decompensated cirrhosis (HCC) CBC W/O DIFFERENTIAL Routine 02/24/2025 11:28 AM CDT Decompensated cirrhosis (HCC) ALPHA FETOPROTEIN BLOOD TUMOR MARKER Routine 02/24/2025 11:28 AM CDT Decompensated cirrhosis (HCC) HEPATITIS C ANTIBODY Routine 01/27/2017 8:29 AM CDT from Last 3 Months or Most Recently Relevant to Health Maintenance Results * US Abdomen Limited (03/25/2025 11:34 AM CDT) Anatomical Region Laterality Modality Abdomen Ultrasound 03/25/2025 11:4 3 AM CDT Impressions 03/25/2025 11:57 AM CDT IMPRESSION: Liver Visualization Score B: Moderate limitations. US-1 Negative. Repeat surveillance US in 6 months. Cirrhotic liver morphology without discrete mass. Small volume ascites. Cholelithiasis without acute cholecystitis. > Dictated by Pancho Cain M.D. executive vice president and chief operating officer > Dictated by Housekeeping Aide I, Abby Andre MD have personally reviewed and interpreted this examination/study. > Interpreting Provider: Abby Andre MD on 03/25/2025 11:57 AM Narrative 03/25/2025 11:57 AM CDT PROCEDURE: US ABDOMEN LIMITED, DATE/TIME OF EXAM: 03/25/2025 11:34 AM, LOCATION [facility] INDICATION: K72.90: Decompensated cirrhosis (HCC) K74.60: Decompensated cirrhosis (HCC) ADDITIONAL CLINICAL INFORMATION: Ordering Provider Reason For Exam: Technologist Note: Technically challenging exam due to bowel gas Additional: COMPARISON: Ultrasound abdomen Limited 01/28/2017 FINDINGS: Liver Visualization Score: Moderate limitations in liver visualization Liver Morphology: The liver is coarse in echotexture. The liver surface is mildly nodular. The liver demonstrates mildly increased echogenicity when compared to the right kidney. Liver Observations: No discrete mass is noted. Main Portal Vein: Color Doppler evaluation demonstrates patency of the main portal vein of normal size with hepatopedal flow. Hepatic Veins: Color Doppler evaluation demonstrates patency of the hepatic veins with hepatofugal flow. Bile Ducts: The common bile duct is nondilated, measuring 4 mm. No intrahepatic or extrahepatic biliary dilation. Gallbladder: Gallstones are seen within the gallbladder without pericholecystic fluid. Sonographic Friedman's sign is negative. Ascites: Small volume ascites is present. Spleen: The spleen measures 9.0 cm in length. Pancreas: The visible pancreas is normal in echogenicity. Right Kidney: The right kidney measures 10.0 x 4.4 x 5.2 cm in length. Limited views of the right kidney reveal no evidence of nephrolithiasis or hydronephrosis. No discrete mass identified. Procedure Note Abby Andre MD - 03/25/2025 PROCEDURE: US ABDOMEN LIMITED, DATE/TIME OF EXAM: 03/25/2025 11:34 AM, LOCATION [facility] INDICATION: K72.90: Decompensated cirrhosis (HCC) K74.60: Decompensated cirrhosis (HCC) ADDITIONAL CLINICAL INFORMATION: Ordering Provider Reason For Exam: Technologist Note: Technically challenging exam due to bowel gas Additional: COMPARISON: Ultrasound abdomen Limited 01/28/2017 FINDINGS: Liver Visualization Score: Moderate limitations in liver visualization Liver Morphology: The liver is coarse in echotexture. The liver surface is mildly nodular. The liver demonstrates mildly increased echogenicity when compared tothe right kidney. Liver Observations: No discrete mass is noted. Main Portal Vein: Color Doppler evaluation demonstrates patency of the main portal vein of normal size with hepatopedal flow. Hepatic Veins: Color Doppler evaluation demonstrates patency of the hepatic veins with hepatofugal flow. Bile Ducts: The common bile duct is nondilated, measuring 4 mm. No intrahepatic or extrahepatic biliary dilation. Gallbladder: Gallstones are seen within the gallbladder without pericholecysticfluid. Sonographic Friedman's sign is negative. Ascites: Small volume ascites is present. Spleen: The spleen measures 9.0 cm in length. Pancreas: The visible pancreas is normal in echogenicity. Right Kidney: The right kidney measures 10.0 x 4.4 x 5.2 cm in length. Limited viewsof the right kidney reveal no evidence of nephrolithiasis orhydronephrosis. No discrete mass identified. IMPRESSION: Liver Visualization Score B: Moderate limitations. US-1 Negative. Repeat surveillance US in 6 months. Cirrhotic liver morphology without discrete mass. Small volume ascites. Cholelithiasis without acute cholecystitis. > Dictated by Pancho Cain M.D. executive vice president and chief operating officer > Dictated by Housekeeping Aide I, Abby Andre MD have personally reviewed and interpreted this examination/study. > Interpreting Provider: Abby Andre MD on 03/25/2025 11:57 AM Andrew Laws MD US ORDERABLES Final Result * ALPHA FETOPROTEIN BLOOD TUMOR MARKER (02/24/2025 11:28 AM CDT) Alpha-Fetoprote in Tumor Marker 4.6 <=8.3 ng/mL 02/24/2025 1:02 PM CDT [facility] Comment: AFP values will vary depending on testing procedure used. Results are not comparable across different methods. AFP values obtained by [facility] using an [employer] Immunoassay. Blood BLOOD SPECIMEN / Unknown Lab Venipuncture / Unknown 02/24/2025 11:28 AM CDT 02/24/2025 12:14 PM CDT Andrew Laws MD LAB - CHEMISTRY ORDERABLES Fin al Result Performing Organization Address [facility] Co de Phone Number [facility] [address] [place] [phone], [facility] [phone] * PT-INR (02/24/2025 11:28 AM CDT) PT 14.1 12.1 - 14.8 Seconds 02/24/2025 12:49 PM CDT [facility] INR 1.1 See Comment 02/24/2025 12:49 PM CDT [facility] Comment:The suggested therap eutic range for standard coumadin (warfarin) therapy is an INR of 2.0-3.0. For high-risk patients (Mechanical Mitral Valve Prosthesis, etc.), the suggested prophylactic therapeutic range is an INR of 2.5-3.5. Blood BLOOD SPECIMEN / Unknown Lab Venipuncture / Unknown 02/24/2025 11:28 AM CDT 02/24/2025 12:25 PM CDT Result [facility] Andrew Laws MD LAB - COAGULATION ORDERABLES F inal Result [facility] [address] [place] [address], [facility] [phone] * (ABNORMAL) CBC W/O DIFFERENTIAL (02/24/2025 11:28 AM CDT) WBC 11.7(H) 4.0 - 10.7 x10E9/L 02/24/2025 12:39 PM T [facility] RBC Count 5.06 4.30 - 5.80 x10E12/L 02/24/2025 12:39 PM T [facility] Hemoglobin 15.7 13.3 - 17.5 g/dL 02/24/2025 12:39 PM [facility] Hematocrit 45.6 38.7 - 51.1 % 02/24/2025 12:39 PM [facility] MCV 90.1 80.0 - 98.0 fL 02/24/2025 12:39 PM [facility] MCH 31.0 26.7 - 33.6 pg 02/24/2025 12:39 PM [facility] MCHC 34.4 31.7 - 36.3 g/dL 02/24/2025 12:39 PM [facility] RDW-CV 14.0 11.3 - 14.8 % 02/24/2025 12:39 PM [facility] Platelet Count 130(L) 150 - 420 x10E9/L 02/24/2025 12:39 PM [facility] MPV 11.1 7.8 - 11.4 fL 02/24/2025 12:39 PM [facility] Blood BLOOD SPECIMEN / Unknown Lab Venipuncture / Unknown 02/24/2025 11:28 AM CDT 02/24/2025 12:14 PM CDT us Andrew Laws MD LAB - HEMATOLOGY ORDERABLES Fi nal Result [facility] [address] [place] [phone], [facility] [phone] * (ABNORMAL) BASIC METABOLIC PANEL (CALCIUM TOTAL) (02/24/2025 11:28 AM CDT) BUN 21 7 - 26 mg/dL 02/24/2025 12:43 PM [facility] Creatinine 0.56(L) 0.71 - 1.16 mg/dL 02/24/2025 12:43 PM [facility] Sodium 131(L) 136 - 145 mmol/L 02/24/2025 12:43 PM [facility] Potassium 4.3 3.5 - 4.5 mmol/L 02/24/2025 12:43 PM [facility] Chloride 101 98 - 107 mmol/L 02/24/2025 12:43 PM [facility] CO2 25 22 - 29 mmol/L 02/24/2025 12:43 PM [facility] Glucose 101(H) 70 - 99 mg/dL 02/24/2025 12:43 PM [facility] Calcium 9.1 8.4 - 10.2 mg/dL 02/24/2025 12:43 PM [facility] Anion Gap 5(L) 6 - 16 02/24/2025 12:43 PM [facility] BUN/Creatinine Ratio 38(H) 7 - 23 02/24/2025 12:43 PM [facility] Osmolality Calculated 275 275 - 295 mOsm/kg 02/24/2025 12:43 PM [facility] eGFR by CKD-EPI >90 >=90 mL/min/1.7 3 m2 02/24/2025 12:43 PM [facility] Comment:Estimated Glomerular Filtration Rate (eGFR) calculated using the CKD-EPI Creatinine Equation (2020), per the National Kidney Foundation and [place] Society of Nephrology recommendations. Blood BLOOD SPECIMEN / Unknown Lab Venipuncture / Unknown 02/24/2025 11:28 AM CDT 02/24/2025 12:14 PM T us Andrew Laws MD LAB - CHEMISTRY ORDERABLES Fin al Result [facility] [address] [place] [address], [facility] [phone] * (ABNORMAL) HEPATIC FUNCTION PANEL (02/24/2025 11:28 AM CDT) [facility] Protein Total 6.6 6.0 - 8.3 g/dL 025 12:43 PM [facility] Albumin 3.4 3.4 - 5.0 g/dL 02/24/2025 12:43 PM [facility] Bilirubin Total 0.7 0.2 - 1.2 mg/dL 01/30 12:43 PM [facility] Bilirubin Conjugated 0.3 0.1 - 0.5 mg/dL 02/24/2025 12:43 PM [facility] Bilirubin Unconjugated 0.4 Unconjugated Bilirubin is a calculated value: Reference ranges have not been established. mg/dL 02/24/2025 12:43 PM [facility] Alkaline Phosphatase 236(H) 40 - 150 U/L 02/24/2025 12:43 PM [facility] ALT 28 5 - 55 U/L 02/24/2025 12:43 PM [facility] AST 42(H) 5 - 34 U/L 02/24/2025 12:43 PM [facility] Albumin/Globulin Ratio 1.1 1.1 - 2.3 02/24/2025 12:43 PM [facility] Blood BLOOD SPECIMEN / Unknown Lab Venipuncture / Unknown 02/24/2025 11:28 AM CDT 02/24/2025 12:14 PM CDT Andrew Laws MD LAB - CHEMISTRY ORDERABLES Fin al Result [facility] [address] [place] [address], [facility] [phone] * HEPATITIS C ANTIBODY (01/27/2017 8:29 AM CDT) [facility] Hepatitis C Antibody Non-react mono Non-reac tive [facility] Comment: Hepatitis C Antibody screen indicates no [...] LAB - CHEMISTRY ORDERA BLES Final Result [address] [phone] from Last 3 Months or Most Recently Relevant to Health Maintenance Insurance [employer] MEDICARE ADV Care Teams Inpatient Coder Relationship Specialty Start Date End Date Zacarias Gutierrez DO PCP - General 02/19/17
== END 2025-05-14 12:48 | disposition home or self-care (01) ==
LOC: ANHGOSHLAB 12:48
PROVIDERS: PCP Internal Medicine; Visit Provider Internal Medicine
DX: K70.10 Alcoholic hepatitis without ascites (principal); I10 Essential (primary) hypertension; I73.9 Peripheral vascular disease, unspecified; E78.5 Hyperlipidemia, unspecified; F32.A Depression, unspecified; Z12.5 Encounter for screening for malignant neoplasm of prostate; Z13.228 Encounter for screening for other metabolic disorders
CPT/HCPCS: 36415; 85025; 85055; 85610

== ENCOUNTER 2025-06-02 09:30 | Outpatient (RCR) | payer SELFPAY | END 2025-06-03 23:59 | disposition home or self-care (01) | LOC: ANHAUDASC 09:30 | PROVIDERS: PCP Internal Medicine; Visit Provider Internal Medicine | DX: Z46.1 Encounter for fitting and adjustment of hearing aid (principal) | CPT/HCPCS: 99199; V5261 ==

== ENCOUNTER 2025-06-30 09:10 | Outpatient (CLI) | payer MEDICARE, SELFPAY ==
--- NOTE | ~2025-06-30 | XR_ITS ---
EXAMINATION: XR hand LT min 3V DATE: 06/30/2025 10:24 INDICATION: Left arm pain TECHNIQUE: Posteroanterior, oblique and lateral views of the left hand were obtained. COMPARISON: None. FINDINGS: Alignment is normal. No fracture. Polyarticular osteoarthritis, moderate severity at the first carpometacarpal joint and mild at the wrist, triscaphe and multiple metacarpophalangeal and interphalangeal joints. No erosions to suggest inflammatory arthritis. Soft tissues are unremarkable. IMPRESSION: 1. Polyarticular osteoarthritis, moderate at the first carpometacarpal joint and otherwise mild. Reviewed, dictated and finalized at location A. TRAIN DRIVER IMPRESSION: 1. Polyarticular osteoarthritis, moderate at the first carpometacarpal joint an d otherwise mild.
--- NOTE | ~2025-06-30 | XR_ITS ---
EXAMINATION: XR elbow LT min 3V DATE: 06/30/2025 10:24 INDICATION: Left arm pain TECHNIQUE: Anteroposterior, two oblique and lateral views of the left elbow were obtained. COMPARISON: None. FINDINGS: Alignment is normal. No fracture or joint effusion. Mild osteoarthritis at the ulnotrochlear articulation. Small enthesopathic ossicle at the distal humeral lateral epicondyle. Soft tissues are unremarkable. IMPRESSION: 1. No left elbow joint effusion or acute osseous abnormality. 2. Mild osteoarthritis at the ulnotrochlear articulation and small these pelvic ossicle at the lateral epicondyle.. Reviewed, dictated and finalized at location A. 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
--- NOTE | ~2025-06-30 | MR_ITS ---
EXAMINATION: MR shoulder LT wo con DATE: 06/30/2025 10:10 INDICATION: Generalized left shoulder pain TECHNIQUE: Magnetic resonance imaging (MRI) of the left shoulder was performed without intravenous contrast. Sequences included axial PD-weighted FS FSE, coronal oblique PD-weighted FS FSE, coronal oblique T2-weighted FS FSE, sagittal PD-weighted FS FSE, and sagittal T1-weighted SE. COMPARISON: None. FINDINGS: Coracoacromial arch: The acromion undersurface is curved in morphology (type II). The coracoacromial ligament is normal. Mild acromioclavicular osteoarthritis. Rotator cuff: Mild supraspinatus and moderate subscapularis tendinopathy with full-thickness tear at the conjoined portion of the tendon at the junction of the superior middle facet footplates which measures 1 cm AP and 1.3 cm medial to lateral. The teres minor tendon is normal. Mild subscapular tendinopathy without discrete tear. Normal rotator cuff muscle bulk and signal. Biceps tendon, glenoid labrum and glenohumeral cartilage: Mild tendinopathy of the intra-articular long head biceps tendon without tear. There is an accessory head of the long head biceps tendon which appears to blend distally with the anterior fibers of the supraspinatus tendon. There is a labral tear beginning at the 12:00 position extending posteriorly to the 9:00 position. Mild glenohumeral osteoarthritis with partial-thickness cartilage loss involving greater than 50% the cartilage thickness but without degenerative subchondral changes extend from the central to cephalad aspect of the glenoid. Fluid: Physiologic amount of fluid in the glenohumeral joint and biceps tendon sheath. No loose osteochondral bodies. Small amount of fluid in the subacromial/subdeltoid bursa consistent with mild bursitis. Bones: Bone alignment is normal. No fracture or pathologic marrow replacing process. Mild cystic change along the lateral rim of the tubercular groove. More prominent cystic change medial to the posterior facet of the greater tuberosity. Mild hypertrophic change along the lesser tuberosity. There is small region of prominent nonspecific marrow edema at the inferior aspect of the lesser tuberosity which could be reactive related to tendinopathy or avulsive stress at the first of the subscapularis tendon or due to bone contusion. Incidentally noted intramuscular lipoma within the posterior deltoid measures 4.7 cm craniocaudally and 1.7 x 1.2 cm in maximal orthogonal dimensions. IMPRESSION: 1. Mild surface medicine moderate interspace tendinopathy with small full- thickness tear at the footplate of the conjoined portion of the tendons. 2. Mild glenohumeral osteoarthritis with tear of the superior to posterior glenoid labrum. 3. Mild tendinopathy without tear of the long head biceps tendon. 4. Mild subscapularis tendinopathy without tear but with prominent marrow edema at the lesser tuberosity which could be due to enthesopathy, either degenerative, inflammatory or due to avulsive stress or due to a bone contusion in the appropriate clinical setting. 5. Mild acromioclavicular osteoarthritis with mild underlying subacromial/subdeltoid bursitis. Reviewed, dictated and finalized at location A. STICS SERVICE REPRESENTATIVE IMPRESSION: 1. Mild surface medicine moderate interspace tendinopathy with small full-thick ness tear at the footplate of the conjoined portion of the tendons. 2. Mild glenohumeral osteoarthritis with tear of the superior to posterior kaya oid labrum. 3. Mild tendinopathy without tear of the long head biceps tendon. 4. Mild subscapularis tendinopathy without tear but with prominent marrow edema at the lesser tuberosity which could be due to enthesopathy, either degenerati ve, inflammatory or due to avulsive stress or due to a bone contusion in the ap propriate clinical setting. 5. Mild acromioclavicular osteoarthritis with mild underlying subacromial/subde ltoid bursitis.
== END 2025-06-30 09:11 | disposition home or self-care (01) ==
LOC: MICIMG 09:11
PROVIDERS: PCP Internal Medicine
DX: M19.012 Primary osteoarthritis, left shoulder (principal); M19.042 Primary osteoarthritis, left hand; M19.022 Primary osteoarthritis, left elbow
CPT/HCPCS: 73080; 73130; 73221